=== PATIENT | female | born 1945 | race Caucasian/White ===

== ENCOUNTER → 2017-02-27 | Outpatient (CLI) | payer OTHER ==
[~2017-02-27] MED LIST: ADVIN50/60 INH; ALBU1.257 NEB; ASPI325T45 PO; ATOR-24 PO; B-COTAB18 PO; CARV3.122 PO; CHOL1000 PO; CITA20TA4 PO; FRS/40 PO; GABA-113 PO; MAGN500C PO; OYST500T47 PO; PANT40TA PO; SPRIN/30 INH; TRAZ50TA35 PO
[2017-02-27 12:10] LABS: BASO % 0.6 %; BASO ABS # 0.05 K/uL (0-0.2); COMPLETE YES; EOS % 2.7 %; HEMATOCRIT 41.2 % (37-47); IG% 0.1 %; LYMPH ABS # 2.37 K/uL (1.2-3.4); MEAN CELL VOLUME 83.9 fL (80-100); MEAN CORPUSCULAR HEMOGLOBIN 27.3 pg (25-34); MEAN CORPUSCULAR HGB CONC 32.5 g/dl (32-36); MEAN PLATELET VOLUME 11.5 fL (7.4-10.4); MONO % 7.1 %; NEUT % 59.5 %; PLATELET COUNT 294 K/uL (130-400); RED BLOOD COUNT 4.91 M/uL (4.2-5.4)
[2017-02-27 12:48] LABS: ALT/SGPT 32 U/L (12-78); AST/SGOT 18 U/L (15-37); BLOOD UREA NITROGEN 15 mg/dl (7-18); BUN/CREATININE RATIO 17.6 (10-20); CALCIUM 9.4 mg/dl (8.5-10.1); CARBON DIOXIDE 31 mmol/L (21-32); CHLORIDE 107 mmol/L (98-107); CREATININE 0.87 mg/dl (0.60-1.20); GLUCOSE 97 mg/dl (70-99); POTASSIUM 4.2 mmol/L (3.5-5.1); SODIUM 145 mmol/L (136-145)
[2017-02-27 12:59] LABS: ALB/GLOB RATIO 1.3 (0.9-2); ALKALINE PHOSPHATASE 81 U/L (45-117); CHOLESTEROL 155 mg/dl (0-200); CHOLESTEROL/HDL RATIO 2.9; HDL CHOLESTEROL 54 mg/dl; LDL CHOLESTEROL CALCULATED 82 mg/dl; TRIGLYCERIDES 95 mg/dl (0-150); VERY LOW DENSITY LIPOPROT CALC 19 mg/dl
== END | disposition home or self-care (01) ==
LOC: C.LABBFT 08:38
PROVIDERS: ATTEND Internal Medicine
DX: Z00.00 Encounter for general adult medical examination without abnormal findings (principal); J44.9 Chronic obstructive pulmonary disease, unspecified; E78.5 Hyperlipidemia, unspecified; M79.606 Pain in leg, unspecified; I25.10 Atherosclerotic heart disease of native coronary artery without angina pectoris; R20.9 Unspecified disturbances of skin sensation

== ENCOUNTER → 2017-04-26 | Outpatient (CLI) | payer OTHER ==
--- NOTE | 2017-04-26 12:56 | DIAGNOSTIC IMAGING REPORT ---
(CHEST) THORAX WITHOUT CLINICAL HISTORY: 72 years-old Female presenting with abnormal chest. TECHNIQUE: Multidetector CT angiography was performed without the use of intravenous contrast. IV contrast: None. COMPARISON: None. CT DOSE: The estimated cumulative dose is 361.24 mGycm. FINDINGS: Pediatric Hospitalist topogram: Unremarkable. On soft tissue windows, normal thyroid and thoracic inlet. No axillary or supraclavicular lymphadenopathy. Few calcified mediastinal and right hilar lymph nodes noted likely from prior granulomatous disease. Mild atherosclerosis of the aortic arch. Normal heart size. Coronary artery calcification. Coronary artery stent noted. No pericardial or pleural effusion. The upper abdomen demonstrates diffuse uptake foci of calcification in the liver and spleen also consistent with old granulomatous disease. On lung windows, apical predominant emphysema. A partially solid partially groundglass nodule noted within the posterior segment of the right upper lobe with minimal surrounding spiculation. This nodule measures 11 mm (series 2 image 29), and the solid component measures 5 mm. Multiple additional punctate nodules noted bilaterally measuring less than 4 mm. These are marked on images. Old calcified granuloma noted at the right apex. Small nodule along the right inferolateral aspect of the lower trachea (series 2 image 22). On bone windows, partial visualization of mandibular hardware. No destructive osseous lesion. IMPRESSION: 1. Partially solid nodule measuring 11 mm in the right upper lobe. Per Fleischner Society 2017 recommendations, 3-6 month follow-up CT recommended to confirm persistence. If unchanged and solid component remains less than 6 mm, annual CT should be performed for 5 years. 2. Evidence of old granulomatous disease. 3. Emphysema. 4. Small nodule along the right inferolateral aspect of the lower trachea. Attention on follow-up. Bronchoscopy could be considered as clinically warranted. Electronically signed by: Adolfo Hwang 04/26/2017 12:55 PM Dictated Date/Time: 04/26/2017 12:40 PM
== END | disposition home or self-care (01) ==
LOC: C.CTS 11:08
PROVIDERS: ATTEND Internal Medicine Pulmonary Disease
DX: R91.1 Solitary pulmonary nodule (principal); R92.8 Other abnormal and inconclusive findings on diagnostic imaging of breast; J43.9 Emphysema, unspecified

== ENCOUNTER → 2017-05-22 | Outpatient (CLI) | payer OTHER ==
[2017-05-22 16:15] LABS: BASO % 0.4 %; BASO ABS # 0.04 K/uL (0-0.2); COMPLETE YES; EOS % 2.1 %; HEMATOCRIT 41.7 % (37-47); IG% 0.1 %; LYMPH % 30.3 %; MEAN CELL VOLUME 83.4 fL (80-100); MEAN CORPUSCULAR HEMOGLOBIN 27.6 pg (25-34); MEAN CORPUSCULAR HGB CONC 33.1 g/dl (32-36); MEAN PLATELET VOLUME 11.3 fL (7.4-10.4); NEUT % 59.1 %; PLATELET COUNT 278 K/uL (130-400); WHITE BLOOD COUNT 9.57 K/uL (4.8-10.8)
[2017-05-22 16:26] LABS: BLOOD UREA NITROGEN 19 mg/dl (7-18); BUN/CREATININE RATIO 17.5 (10-20); CALCIUM 9.2 mg/dl (8.5-10.1); CARBON DIOXIDE 33 mmol/L (21-32); CHLORIDE 104 mmol/L (98-107); GLUCOSE 99 mg/dl (70-99); MAGNESIUM 2.3 mg/dl (1.8-2.4); POTASSIUM 3.5 mmol/L (3.5-5.1); SODIUM 141 mmol/L (136-145)
[2017-05-22 17:59] LABS: URINE APPEARANCE CLOUDY (CLEAR); URINE BILIRUBIN NEG (NEG); URINE COLOR DK YELLOW; URINE EPITHELIAL CELL AUTO >30 /lpf (0-5); URINE NITRITE NEG (NEG); URINE SPECIFIC GRAVITY 1.021 (1.000-1.030); UROBILINOGEN NEG (NEG)
[2017-05-22 18:09] LABS: MANUAL MICROSCOPIC REQUIRED? NO; REVIEW REQ? YES
== END | disposition home or self-care (01) ==
LOC: C.LAB1850 14:40
PROVIDERS: ATTEND Internal Medicine
DX: Z00.00 Encounter for general adult medical examination without abnormal findings (principal); E78.5 Hyperlipidemia, unspecified; R61 Generalized hyperhidrosis; R25.2 Cramp and spasm

== ENCOUNTER → 2017-07-30 | Day surgery (SDC) | payer OTHER ==
[2017-07-19 13:48] VITALS: Ht 167.6 cm; Wt 82.7 kg
[~2017-07-30] VITALS: Ht 167.6 cm; Wt 82.7 kg
[~2017-07-30] MED LIST changes: +500ML BSS 0.3ML EPI 1:1000PF IRRIG ONE; +ACETAMINOPHEN 325 MG TAB PO PRN; +AMVISC PLUS 0.8ML SYRINGE INT OCU ONE; +ATROPINE SULFATE 0.1 MG/ML 5ML SYR IV PRN; +BSS FLUSH ONE; +EpHEDrine SULFATE INJ 50 MG/ML AMP IV PRN; +EpINEphrine INJ 1MG/ML AMP 1 MG/ML AMP ONE; +FENTANYL CITRATE INJ 50 MCG/1 ML 2 ML VIAL IV PRN; +FENTANYL CITRATE INJ 50 MCG/1 ML 2 ML VIAL ONE; +LACTATED RINGER'S 1000ML 500 ML IV SCH; +LIDOCAINE 3.5% OPH GEL PER APPLICATION CHARGE ONE; +LIDOCAINE HCL 1% MPF 2 ML VIAL ONE; +MIDAZOLAM HCL 1 MG/ML 2ML VIAL ONE; +OCUCOAT 1 ML SOLN IO ONE; +ONDANSETRON INJ 2 MG/ML 2 ML VIAL IV PRN; +POVIDONE-IODINE OP SOLN 30 ML BTL ONE; +PROPARACAINE 0.5% OP SOLN PER DROP CHARGE OPL SCH; +TOBRAMYCIN/DEXAMETHASONE OPH OINT PER APPLN CHARGE ONE
[2017-07-30] MEDS: PHENYLEPHRINE HCL 2.5% OP SOLN PER DROP CHARGE OPL SCH ×2 (07:35→07:40)
[2017-07-30] MEDS: TROPICAMIDE 1% OP SOLN PER DROP CHARGE OPL SCH ×2 (07:35→07:41)
[2017-07-30] MEDS: CYCLOPENTOLATE HCL 1% OP SOLN PER DROP CHARGE OPL SCH ×2 (07:36→07:42)
[2017-07-30] MEDS: KETOROLAC 0.5% OP SOLN PER DROP CHARGE OPL SCH ×2 (07:37→07:43)
[2017-07-30] MEDS: GATIFLOXACIN OP SOLN PER DROP CHARGE OPL SCH ×2 (07:38→07:46)
--- NOTE | 2017-07-30 07:52 | History & Physical Bridge - SC ---
H&P Re-Evaluation Bridge Note: I have examined the patient, reviewed the History & Physical and in the interval since the performance of the History & Physical I have noted the following changes of clinical significance: Diagnosis: Left Cataract Procedure: Left Cataract Removal with Lens Implant No changes noted
--- NOTE | 2017-07-30 08:38 | [facility] Operative Report ---
Operative Report Date of Service Jul 30, 2017. Operative Report 1. PREOPERATIVE DIAGNOSIS: Cataract of the left eye. 2. POSTOPERATIVE DIAGNOSIS: Same. 3. PROCEDURE: Phacoemulsification with intraocular lens implantation of the left eye. SURGEON: Dr. Fran Trevino. ANESTHESIA: Topical Lidocaine gel, 1% Non- Preserved intracameral Lidocaine, and monitored intravenous sedation. INDICATIONS FOR THE PROCEDURE: The patient is a 72 - year-old female with a history of cataract of the left eye causing significant visual impairment. The details of the proposed procedure were explained to the patient who asked appropriate questions and following discussion of all risks, benefits and alternatives agreed to have the procedure done. 4. OPERATION AND FINDINGS: DESCRIPTION OF PROCEDURE: After informed consent was obtained, the patient was brought to the Operating Room at the [facility]. The patient was placed in a supine position and then the left eye was prepped and draped in the usual sterile fashion for intraocular surgery. A drop of topical Lidocaine gel was placed in the operative eye. A wire lid speculum was then placed in the fornices. A corneal paracentesis was then created temporally. The Non-Preserved Lidocaine was then instilled into the anterior chamber. The anterior chamber was then pressurized with viscoelastic. A 2.0 mm clear corneal incision was then created temporally. A cystotome was inserted into the anterior chamber and used to create a tear in the anterior lens capsule. This capsular tear was then used to create a small flap and the flap was dragged in a counterclockwise direction in order to create a continuous curvilinear capsulorrhexis. Hydrodissection was accomplished with balanced salt solution. Phacoemulsification of the lens nucleus was then performed in a standard [id number] technique. The phaco time was 24 seconds with an average power of 12 %. The remaining cortical material was removed using irrigation aspiration. The capsular bag was then filled with viscoelastic. A [employer] MX60 +20.0 diopters lens was then loaded into the injector and injected into the capsular bag. The remaining viscoelastic was removed with the irrigation aspiration handpiece. The wound was hydrated and then checked and found to be watertight. The intraocular pressure was checked and found to be adequate. The wire lid speculum was removed and the patient's face was cleaned and dried. TobraDex ointment was placed in the inferior fornix. The patient was discharged to the Recovery Room having tolerated the procedure well. There were no complications. The patient will be seen tomorrow in the office for follow-up. I attest to the content of the Intraoperative Record and any orders documented therein. Any exceptions are noted below.
--- NOTE | 2017-07-30 08:38 | Discharge Instructions-SurgCtr ---
Discharge Instructions Date of Service Jul 30, 2017. Visit Reason for Visit: Cataract Left Eye Discharge Discharge Diagnosis / Problem: cataract Discharge Goals Goal(s): Improve function Activity Recommendations Activity Limitations: per Instructions/Follow-up section Anesthesia . Post Anesthesia Instructions: If you have had General Anesthesia or IV Sedation: * Do not drive today. * Resume driving when surgeon permits. * Do not make important decisions or sign legal documents today. * Call surgeon for: 1. Temperature elevations greater than 101 degrees F. 2. Uncontrollable pain. 3. Excessive bleeding. 4. Persistent nausea and vomiting. 5. Medication intolerance (nausea, vomiting or rash). * For nausea and vomiting use only clear liquids such as: tea, soda, bouillon until nausea subsides, then gradually increase diet as tolerated. * If you have any concerns or questions, call your surgeon's office. If physician is unavailable and it is an emergency, call 911 or go to the nearest emergency room. . Diet Recommendations Home Diet: resume previous diet Procedures Procedures Performed: Left Cataract Phacoemulsification With Intraocular Lens Implant Pending Studies Studies pending at discharge: no Medical Emergencies . Who to Call and When: Medical Emergencies: If at any time you feel your situation is an emergency, please call 911 immediately. . Non-Emergent Contact Non-Emergency issues call your: [employer] . . "Provider Documentation" section prepared by Fran Trevino. .
[2017-07-30 08:59] VITALS: BP 118/68; PULSE 58; O2SAT 96
--- NOTE | 2017-07-30 09:07 | Anesthesia Progress Nt - [facility] ---
Anesthesia Post Op Note Date & Time Jul 30, 2017 at 09:07 Vital Signs Pain Intensity: 0 Vital Signs Past 12 Hours Date Time Temp Pulse Resp B/P (MAP) Pulse Ox O2 Delivery O2 Flow Rate FiO2 07/30/17 08:59 58 16 118/68 (85) 96 Room Air 07/30/17 08:38 36.3 63 16 114/61 (78) 94 Room Air 07/30/17 07:22 36.5 66 18 120/86 (97) 96 Room Air Notes Mental Status: alert / awake / arousable, participated in evaluation Pt Amnestic to Procedure: Yes Nausea / Vomiting: adequately controlled Pain: adequately controlled Airway Patency, RR, SpO2: stable & adequate BP & HR: stable & adequate Hydration State: stable & adequate Anesthetic Complications: no major complications apparent
== END | disposition home or self-care (01) ==
LOC: X.SURG 07:10
PROVIDERS: ATTEND Ophthalmology
DX: H26.9 Unspecified cataract (principal); J44.9 Chronic obstructive pulmonary disease, unspecified; Z99.81 Dependence on supplemental oxygen; K21.9 Gastro-esophageal reflux disease without esophagitis; I25.10 Atherosclerotic heart disease of native coronary artery without angina pectoris; I25.2 Old myocardial infarction; Z87.891 Personal history of nicotine dependence; Z90.710 Acquired absence of both cervix and uterus; Z90.49 Acquired absence of other specified parts of digestive tract

== ENCOUNTER → 2017-09-24 | Outpatient (CLI) | payer OTHER ==
[~2017-09-24] MED LIST changes: -500ML BSS 0.3ML EPI 1:1000PF IRRIG ONE; -ACETAMINOPHEN 325 MG TAB PO PRN; -AMVISC PLUS 0.8ML SYRINGE INT OCU ONE; -ATROPINE SULFATE 0.1 MG/ML 5ML SYR IV PRN; -BSS FLUSH ONE; -EpHEDrine SULFATE INJ 50 MG/ML AMP IV PRN; -EpINEphrine INJ 1MG/ML AMP 1 MG/ML AMP ONE; -FENTANYL CITRATE INJ 50 MCG/1 ML 2 ML VIAL IV PRN; -FENTANYL CITRATE INJ 50 MCG/1 ML 2 ML VIAL ONE; -LACTATED RINGER'S 1000ML 500 ML IV SCH; -LIDOCAINE 3.5% OPH GEL PER APPLICATION CHARGE ONE; -LIDOCAINE HCL 1% MPF 2 ML VIAL ONE; -MIDAZOLAM HCL 1 MG/ML 2ML VIAL ONE; -OCUCOAT 1 ML SOLN IO ONE; -ONDANSETRON INJ 2 MG/ML 2 ML VIAL IV PRN; -POVIDONE-IODINE OP SOLN 30 ML BTL ONE; -PROPARACAINE 0.5% OP SOLN PER DROP CHARGE OPL SCH; -TOBRAMYCIN/DEXAMETHASONE OPH OINT PER APPLN CHARGE ONE
--- NOTE | 2017-09-24 13:05 | DIAGNOSTIC IMAGING REPORT ---
(CHEST) THORAX WITHOUT CT DOSE: 340.47 mGycm CLINICAL HISTORY: 72 years-old Female with R91.1 Lung [id number] Tracheal noduleappt sched 09-24-17 @ 11:4. Follow-up study in a patient with lung and tracheal nodules TECHNIQUE: Multiaxial CT images of the chest were performed without contrast. A dose lowering technique was utilized adhering to the principles of ALARA. COMPARISON: CT chest 04/26/2017. FINDINGS: No dominant thyroid nodule identified. Calcified mediastinal and hilar lymph nodes compatible with prior granulomatous disease. Mural fibrofatty changes of septal the septal and apical left ventricular thapa are noted compatible with prior myocardial infarction. Coronary arterial calcifications are noted. There is a stent of the left anterior descending artery. There is no pneumothorax or pleural effusion. Moderate paraseptal and centrilobular emphysematous changes are again seen within the upper lung zone predominant distribution. Mild biapical pleural-parenchymal scarring. Calcified granuloma the right upper lobe. Linear subsegmental opacities of the right middle lobe suggest areas of atelectasis and/or scarring. There are multiple solid noncalcified nodules of the bilateral lungs, which measure in the 2 to 3 mm range (please see bookmarks). These appear unchanged from comparison. 10 x 8 mm pulmonary nodule of the right upper lobe abutting the major fissure is again seen which again demonstrates mild surrounding spiculation and groundglass opacity and appears somewhat linear in morphology on the coronal reformatted images nicely seen on image 142 series 4. This appears unchanged from comparison study 04/26/2017. No new suspicious pulmonary nodules identified. The previously questioned tracheal lesion is not definitively seen. Minimal layering secretions are seen within the tracheobronchial tree with some mucous plugging noted on image 199 series 4 is in the right lower lobe. Calcifications of the hepatic and splenic parenchyma compatible with prior granulomatous disease. Soft tissues are unremarkable. The bones appear intact. IMPRESSION: 1. 10 x 8 mm pulmonary nodule of the posterior segment right upper lobe appears stable in size and morphology from comparison study 04/26/2017 and again demonstrates mild marginal spiculation with surrounding groundglass density. This appears somewhat linear on the coronal images suspicious for possible scarring, however bronchogenic neoplasm could have a similar appearance. Follow-up CT in 3-6 months recommended to further evaluate. 2. Prior granulomatous disease. Multiple solid noncalcified nodules of the bilateral lungs are again seen measuring up to 4 mm which appear unchanged from comparison and are likely benign. Follow-up guidelines provided below. 3. Coronary arterial disease and prior coronary arterial stenting with remote septal and apical left ventricular infarction. Please refer to below summary of Fleischner criteria recommendations for follow-up of incidental CT nodules (Kaila Stewart, Guidelines for management of small pulmonary nodules detected on CT scans: A statement from the Fleischner Society, Radiology 237: [phone].) SOLID NODULES Solitary nodule size: <6 mm * Low risk patients: no follow-up needed * high risk patients: optional CT at 12 months Solitary nodule size: 6-8 mm * Low risk patients: follow-up at 6-12 months, then consider further follow-up at 18-24 months * high risk patients: initial follow-up CT at 6-12 months and then at 18-24 months if no change Solitary nodule size: >8 mm * either low or high risk patients - consider follow-up CT at 3 months, and/or CT-PET, and/or biopsy Multiple nodules size: <6 mm * Low risk patients: no routine follow-up * high risk patients: optional CT at 12 months Multiple nodules size: 6-8 mm * Low risk patients: follow-up at 3-6 months, then consider further follow-up at 18-24 months * high risk patients: follow-up at 3-6 months, then at 18-24 months if no change Multiple nodules size: >8 mm * Low risk patients: follow-up at 3-6 months, then consider further follow-up at 18-24 months * high risk patients: follow-up at 3-6 months, then at 18-24 months if no change Note: newly detected indeterminate nodule in persons 35 years of age or older. * Low risk patients: minimal or absent history of smoking and/or other known risk factors * high risk patients: history of smoking or of other known risk factors (e.g. first degree relative with lung cancer, or exposure to asbestos, radon, uranium) * if a nodule up to 8 mm is partly solid or is ground glass further follow-up is required after 24 months to exclude possible slow growing adenocarcinoma (MADHAVI) SUBSOLID NODULES Solitary pure ground-glass nodule * nodule size <6 mm - no CT follow-up required * nodule size >=6 mm - follow-up CT at 6-12 months, then every 2 years until 5 years Solitary part-solid nodule * nodule size <6 mm - no CT follow-up required * nodule size >=6 mm - follow-up CT at 3-6 months. If unchanged, and solid component remains <6 mm, then annual follow-up for 5 years Multiple subsolid nodules * nodule size <6 mm - follow-up CT at 3-6 months, consider further follow-up at 2 and 4 years if stable * nodule size >=6 mm - follow-up CT at 3-6 months, subsequent management based on the most suspicious nodule(s) The above report was generated using voice recognition software. It may contain grammatical, syntax or spelling errors. Electronically signed by: Zaid Craig M.D. 09/24/2017 1:04 PM Dictated Date/Time: 09/24/2017 12:53 PM
== END | disposition home or self-care (01) ==
LOC: C.CTS 11:55
PROVIDERS: ATTEND Internal Medicine Pulmonary Disease
DX: J98.8 Other specified respiratory disorders (principal); R91.1 Solitary pulmonary nodule

== ENCOUNTER 2017-10-15 11:02 | Inpatient (IN) | payer OTHER ==
[~2017-10-15] VITALS: Ht 167.6 cm; Wt 86.0 kg
[2017-10-15] VITALS (7 sets, daily range): BP systolic 100–101; BP diastolic 58–61; PULSE 64–77; TEMP 36.6–37.2; O2SAT 91–95; Ht 167.6 cm; Wt 86.0 kg
[~2017-10-15 11:02] MED LIST changes: +ASPECOTC PO; -ASPI325T45 PO
[2017-10-15] MEDS ORDERED: ALBUT/IPRATROP 3MG/0.5MG NEB 3 ML VIAL INH STA ×2 (11:15→12:17)
--- NOTE | 2017-10-15 11:36 | DIAGNOSTIC IMAGING REPORT ---
CHEST ONE VIEW PORTABLE CLINICAL HISTORY: sob dyspnea COMPARISON STUDY: No previous studies for comparison. FINDINGS: The bones soft tissues and hemidiaphragms are normal. The cardiomediastinal silhouette is normal. The lungs are clear. The pulmonary vasculature is normal. IMPRESSION: Negative chest. The right lung nodular process seen on CT is not well seen on this exam. The above report was generated using voice recognition software. It may contain grammatical, syntax or spelling errors. Electronically signed by: Johnny Barnes M.D. 10/15/2017 11:34 AM Dictated Date/Time: 10/15/2017 11:33 AM
[2017-10-15] MEDS ORDERED: PRED10TA PO (11:39)
[2017-10-15 12:13] LABS: BASO % 0.4 %; BASO ABS # 0.03 K/uL (0-0.2); EOS % 0.5 %; EOS ABS # 0.04 K/uL (0-0.5); HEMATOCRIT 40.6 % (37-47); HEMOGLOBIN 13.6 g/dL (12.0-16.0); IG# 0.03 K/uL (0.00-0.02); LYMPH % 10.2 %; LYMPH ABS # 0.78 K/uL (1.2-3.4); MEAN CELL VOLUME 82.9 fL (80-100); MEAN CORPUSCULAR HEMOGLOBIN 27.8 pg (25-34); MEAN CORPUSCULAR HGB CONC 33.5 g/dl (32-36); MEAN PLATELET VOLUME 10.8 fL (7.4-10.4); MONO % 14.2 %; MONO ABS # 1.08 K/uL (0.11-0.59); NEUT % 74.3 %; NEUT ABS # 5.67 K/uL (1.4-6.5); PLATELET COUNT 200 K/uL (130-400); RED CELL DISTRIBUTION WIDTH CV 14.5 % (11.5-14.5); RED CELL DISTRIBUTION WIDTH SD 43.3 fL (36.4-46.3); WHITE BLOOD COUNT 7.63 K/uL (4.8-10.8)
[2017-10-15] MEDS ORDERED: AZITHROMYCIN 250 MG TAB PO STA (12:13)
[2017-10-15] MEDS ORDERED: METHYLPREDNISOLONE 125 MG VIAL IV STA (12:13)
[2017-10-15] MEDS ORDERED: MAGNESIUM SULFATE 1GM / D5W 1 GM BAG IV STA (12:13)
[2017-10-15] MEDS ORDERED: MoRPHine SULFATE 4 MG/ML 1 ML CARP\\VIAL IV STA (12:13)
[2017-10-15] MEDS ORDERED: ALBUT/IPRATROP 3MG/0.5MG NEB 3 ML VIAL INH ONE (12:15)
--- NOTE | 2017-10-15 12:18 | EMERGENCY ROOM VISIT NOTE ---
History Report prepared by Mica: Clemente James Under the Supervision of: Dr. Pietro Sullivan M.D. First contact with patient: 12:02 Chief Complaint: REFERRED BY DOCTOR Stated Complaint: SOB;DOC SENT TO ER O2 LEVEL IS LOW History of Present Illness The patient is a 72 year old white female with a past medical history of a heart attack with stent placement, COPD, hypertension, and hyperlipidemia who presents to the ED with a cc of worsening shortness of breath beginning yesterday. Positive sweats, chest congestion. Negative chest pain, leg swelling. She states that her doctor sent her in for the shortness of breath, as it worsened around 3 hours ago. She says that her oxygen saturation was 86% at home. The patient says that she had difficulty breathing yesterday, and used her nebulizer, inhaler, and oxygen without much relief. She notes that she only wears oxygen (2.5 liters) at night. She adds that she normally can walk to the bathroom without difficulty, but she now has shortness of breath on exertion. She notes no history of blood clots in the legs or lungs. The patient is not on a blood thinner. She did not get her flu shot yet. Source of History: patient, family Onset: Yesterday Position: other (global - shortness of breath) Quality: other (used nebulizer, inhaler, and oxygen without relief) Timing: worsening Modifying Factors (Worsening): exertion Associated Symptoms: + diaphoresis, No chest pain Note: Associated symptoms: Chest congestion. Negative leg swelling. Review of Systems See HPI for pertinent positives and negatives. A total of ten systems were reviewed and were otherwise negative. Past Medical & Surgical Medical Problems: (1) COPD (chronic obstructive pulmonary disease) (2) COPD exacerbation (3) Heart attack (4) HLD (hyperlipidemia) (5) HTN (hypertension) Family History Family history limited secondary to patient's advanced age. Social History Smoking Status: Unknown if Ever Smoked Marital Status: Occupation Status: retired Current/Historical Medications Scheduled Aspirin (Aspirin), 325 MG PO QAM Atorvastatin (Lipitor), 40 MG PO QPM B-Complex Vitamins (Vitamin B Complex), 1 TAB PO QAM Carvedilol (Coreg), 3.125 MG PO BID Cholecalciferol (Vitamin D3), 1,000 UNITS PO QAM Citalopram Hydrobromide (Citalopram Hydrobromide), 20 MG PO HS Fluticasone Prop/Salmeterol (Advair Diskus 500/50 60 Dose), 1 PUFF INH BID Furosemide (Lasix), 40 MG PO QAM Gabapentin (Neurontin), 300 MG PO HS Magnesium Oxide (Mg Supplement (Magnesium), 1 CAP PO QAM Oyster Shell (Calcium), 1 TAB PO QAM Pantoprazole (Protonix), 40 MG PO QAM Prednisone (Prednisone), 1 DOSE PO UD Tiotropium [place] (Spiriva Handihaler), 1 CAP INH HS Trazodone Hcl (Trazodone), 50 MG PO HS Scheduled PRN Albuterol Sulfate (Albuterol Sulfate), 1 VIAL NEB Q4 PRN for Shortness of Breath Allergies Coded Allergies: Diazepam (Verified Allergy, Unknown, WAS TOLD NEVER TO TAKE AGAIN FROM INSTRUCTIONAL SUPPORT SPECIALIST, 10/15/17) Physical Exam Vital Signs Date Time Temp Pulse Resp B/P (MAP) Pulse Ox O2 Delivery O2 Flow Rate FiO2 10/15/17 13:13 81 20 94/51 93 Nasal Cannula 2.0 10/15/17 12:09 81 10/15/17 11:38 Nasal Cannula 2.5 10/15/17 11:34 81 22 96 Nasal Cannula 2.5 10/15/17 11:34 95 Nebulizer 10/15/17 11:28 Nebulizer 10/15/17 11:04 37.1 86 24 145/101 92 Room Air Physical Exam GENERAL: Awake, alert, well-appearing, NAD, nasal cannula in place. HENT: Normocephalic, atraumatic. EYES: Normal conjunctiva. Sclera non-icteric. NECK: Supple. No nuchal rigidity. FROM. RESPIRATORY: Mildly labored. Diffuse expiratory wheezing, prolonged expiratory phase. CARDIAC: RRR, no MRG ABDOMEN: Soft, NTND, BS+ MSK: No chest wall TTP, 1+ pretibial edema. NEURO: GCS 15, CN 2-12 intact, moves all 4s on command SKIN: No rash or jaundice noted. Medical Decision & Procedures ER Provider Diagnostic Interpretation: X-ray: Per my interpretation, radiologist review. CHEST ONE VIEW PORTABLE CLINICAL HISTORY: sob dyspnea COMPARISON STUDY: No previous studies for comparison. FINDINGS: The bones soft tissues and hemidiaphragms are normal. The cardiomediastinal silhouette is normal. The lungs are clear. The pulmonary vasculature is normal. IMPRESSION: Negative chest. The right lung nodular process seen on CT is not well seen on this exam. The above report was generated using voice recognition software. It may contain grammatical, syntax or spelling errors. Electronically signed by: Johnny Barnes M.D. 10/15/2017 11:34 AM Dictated Date/Time: 10/15/2017 11:33 AM Laboratory Results 10/15/17 11:30 Red Blood Count 4.90, Mean Corpuscular Volume 82.9, Mean Corpuscular Hemoglobin 27.8, Mean Corpuscular Hemoglobin Concent 33.5, Mean Platelet Volume 10.8, Neutrophils (%) (Auto) 74.3, Lymphocytes (%) (Auto) 10.2, Monocytes (%) (Auto) 14.2, Eosinophils (%) (Auto) 0.5, Basophils (%) (Auto) 0.4, Neutrophils # (Auto ) 5.67, Lymphocytes # (Auto) 0.78, Monocytes # (Auto) 1.08, Eosinophils # (Auto ) 0.04, Basophils # (Auto) 0.03 10/15/17 11:30 Test 10/15/17 11:30 10/15/17 11:35 10/15/17 13:35 White Blood Count 7.63 K/uL (4.8-10.8) Red Blood Count 4.90 M/uL (4.2-5.4) Hemoglobin 13.6 g/dL (12.0-16.0) Hematocrit 40.6 % (37-47) Mean Corpuscular Volume 82.9 fL (80-100) Mean Corpuscular Hemoglobin 27.8 pg (25-34) Mean Corpuscular Hemoglobin Concent 33.5 g/dl (32-36) Platelet Count 200 K/uL (130-400) Mean Platelet Volume 10.8 fL (7.4-10.4) Neutrophils (%) (Auto) 74.3 % Lymphocytes (%) (Auto) 10.2 % Monocytes (%) (Auto) 14.2 % Eosinophils (%) (Auto) 0.5 % Basophils (%) (Auto) 0.4 % Neutrophils # (Auto) 5.67 K/uL (1.4-6.5) Lymphocytes # (Auto) 0.78 K/uL (1.2-3.4) Monocytes # (Auto) 1.08 K/uL (0.11-0.59) Eosinophils # (Auto) 0.04 K/uL (0-0.5) Basophils # (Auto) 0.03 K/uL (0-0.2) RDW Standard Deviation 43.3 fL (36.4-46.3) RDW Coefficient of Variation 14.5 % (11.5-14.5) Immature Granulocyte % (Auto) 0.4 % Immature Granulocyte # (Auto) 0.03 K/uL (0.00-0.02) Prothrombin Time 10.0 SECONDS (9.0-12.0) Prothromb Time International Ratio 1.0 (0.9-1.1) Activated Partial Thromboplast Time 25.7 SECONDS (21.0-31.0) Partial Thromboplastin Ratio 1.0 Anion Gap 5.0 mmol/L (3-11) Estimated GFR () 90.8 Estimated GFR (Non- 78.4 BUN/Creatinine Ratio 23.1 (10-20) Calcium Level 8.9 mg/dl (8.5-10.1) Total Bilirubin 0.5 mg/dl (0.2-1) Aspartate Amino Transf (AST/SGOT) 20 U/L (15-37) Alanine Aminotransferase (ALT/SGPT) 34 U/L (12-78) Alkaline Phosphatase 73 U/L (45-117) Total Protein 6.9 gm/dl (6.4-8.2) Albumin 3.8 gm/dl (3.4-5.0) Globulin 3.1 gm/dl (2.5-4.0) Albumin/Globulin Ratio 1.2 (0.9-2) Bedside Troponin I < 0.030 ng/ml (0-0.045) Influenza Type A Antigen POS for Influ A (NEG) Influenza Type B Antigen Neg for Influ B (NEG) Laboratory results reviewed by me Medications Administered Medications (Trade) Dose Ordered Sig/Juarez Route Start Time Stop Time Status Last Admin Dose Admin Albuterol/ Ipratropium (Duoneb) 3 ml NOW STAT INH 10/15/17 11:15 10/15/17 11:17 DC 12/26/17 11:38 3 ML Azithromycin (Zithromax Tab) 500 mg NOW STAT PO 10/15/17 12:13 10/15/17 12:16 DC 10/15/17 12:26 500 MG Methylprednisolone Sodium Succinate (Solu-Medrol IV) 125 mg NOW STAT IV 10/15/17 12:13 10/15/17 12:16 DC 10/15/17 12:30 125 MG Magnesium Sulfate (Magnesium Sulfate) 1 gm NOW STAT IV 10/15/17 12:13 10/15/17 12:16 DC 10/15/17 12:28 1 GM Albuterol/ Ipratropium (Duoneb) 9 ml ONE STAT INH 10/15/17 12:17 10/15/17 12:19 DC 10/15/17 12:31 9 ML Morphine Sulfate (MoRPHine SULFATE INJ) 2 mg STK-MED ONCE .ROUTE 10/15/17 12:19 10/15/17 12:20 DC 10/15/17 12:27 2 MG ECG Indication: SOB/dyspnea Rate (beats per minute): 77 Rhythm: normal sinus Findings: Q waves (Inferior), left axis deviation, other (normal intervals) ED Course 1207: The patient was evaluated in room B12B. A complete history and physical exam was performed. 1305: Upon reexamination, the patient was resting. I discussed the test results and treatment plan with her. She expressed understanding and agreement. The patient will be evaluated for further management. 1310: Discussed the patient's case with Dr. Catherine Tilley - [facility] carbonation equipment tender. The patient will be evaluated for further treatment and disposition. Medical Decision The patient is a 72 year old white female with a past medical history of a heart attack with stent placement, COPD, hypertension, and hyperlipidemia who presents to the ED with a cc of worsening shortness of breath beginning yesterday. Positive sweats, chest congestion. Negative chest pain, leg swelling. Differential diagnosis: Etiologies such as infections, reactive airway disease, pneumonia, pneumothorax , COPD, CHF, cardiac ischemia, pulmonary embolism, musculoskeletal, gastrointestinal, as well as others were entertained. Patient was seen and evaluated the bedside. Patient is at worsening shortness of breath ongoing since yesterday. Patient does typically used to have liters of O2 at nighttime. Patient states that she's had use it throughout the day. Patient did chest her pulse ox at home and it was 86%. Patient has complained of a dry cough. Patient denies any chest pain. Patient is a prior history of CAD status post stent placement. Patient was given DuoNeb's, steroids, Zithromax and did have blood work completed along with a troponin chest x-ray and EKG. Patient's EKG did show left axis deviation with inferior Q waves. Patient had negative troponin. Patient's white count was not significantly elevated. Patient history exam is most consistent with COPD exacerbation. Given her increased oxygen requirement I did speak with the hospitalist who agreed to further evaluate and treat the patient. She was admitted to medicine service. Medication Reconcilliation Current Medication List: was personally reviewed by me Blood Pressure Screening Patient's blood pressure: Elevated blood pressure Referred to carbonation equipment tender. Consults Time Called: 1305 Consulting Physician: Dr. Catherine Chavez carbonation equipment tender Returned Call: 1310 Discussed the patient's case with Dr. Catherine Chavez carbonation equipment tender. The patient will be evaluated for further treatment and disposition. Impression Primary Impression: COPD (chronic obstructive pulmonary disease) Additional Impressions: Influenza A Acute respiratory failure with hypoxia Scribe Attestation The scribe's documentation has been prepared under my direction and personally reviewed by me in its entirety. I confirm that the note above accurately reflects all work, treatment, procedures, and medical decision making performed by me. Departure Information Dispostion Being Evaluated By Hospitalist Referrals Danna Winston M.D. (PCP) Patient Instructions My [facility] Problem Qualifiers Primary Impression: COPD (chronic obstructive pulmonary disease) COPD type: unspecified COPD Qualified Codes: J44.9 - Chronic obstructive pulmonary disease, unspecified
[2017-10-15] MEDS ORDERED: MoRPHine SULFATE 2 MG/ML CARP ONE (12:19)
[2017-10-15 12:23] LABS: PTT PATIENT 25.7 SECONDS (21.0-31.0)
[2017-10-15 12:34] LABS: ALBUMIN 3.8 gm/dl (3.4-5.0); ALT/SGPT 34 U/L (12-78); AST/SGOT 20 U/L (15-37); BLOOD UREA NITROGEN 18 mg/dl (7-18); CALCIUM 8.9 mg/dl (8.5-10.1); CARBON DIOXIDE 28 mmol/L (21-32); CREATININE 0.76 mg/dl (0.60-1.20); GLUCOSE 97 mg/dl (70-99); POTASSIUM 3.5 mmol/L (3.5-5.1); SODIUM 134 mmol/L (136-145)
[2017-10-15 12:36] LABS: ALKALINE PHOSPHATASE 73 U/L (45-117); TOTAL PROTEIN 6.9 gm/dl (6.4-8.2)
[2017-10-15] MEDS ORDERED: POLYETHYLENE (MIRALAX) 17 GM PACK PO PRN (13:45)
[2017-10-15] MEDS ORDERED: IV FLUIDS COMPLETED PRN (13:45)
[2017-10-15] MEDS ORDERED: MAGNESIUM HYDROXIDE SUSP 30 ML UDC PO PRN (13:45)
[2017-10-15] MEDS ORDERED: ONDANSETRON INJ 2 MG/ML 2 ML VIAL IV PRN (13:45)
[2017-10-15] MEDS ORDERED: ALUMINUM/MAGNESIUM/SIMETH (MAALOX MAX) 30 ML UDC PO PRN (13:45)
--- NOTE | 2017-10-15 13:57 | History and Physical ---
History & Physical Date & Time of Service: Oct 15, 2017 at 13:41 Chief Complaint: Sob;Doc Sent To Er O2 Level Is Low Primary Care Physician: Danna Winston M.D. History of Present Illness Source: patient, family, clinic records, hospital records Patient is a pleasant 72 y/o female, with PMHx of CAD s/p [place] w/ 2 stents, diastolic CHF, HTN, HLD, COPD, tobacco abuse, RUL nodule, neuropathy, anxiety, and GERD, who presented to the ED because of progressive SOB x1 day. Patient follows w/ Dr. Wilkerson. She normally wears 2.5L O2 HS; as of yesterday afternoon, she required 2L O2 during the day due to SOB and pulse ox of 86%. She notes non- productive cough. She most recently saw Dr. Wilkerson on 10/09 and was placed on a 12 day Prednisone taper- today is day #7 at 20 mg. She has a RUL nodule, which is being followed by Dr. Wilkerson. She smokes 3 cigs per day- notes her and Dr. Wilkerson have discussed smoking cessation and plans to discontinue cigs on October 21. Dr. Wilkerson is also planning for pulmonary rehab 3 times per week. She denies any other complaints. Denies h/o DVT/PE. + wheezing. +fatigue. Patient denies any fever, chills, sweats, lightheadedness, dizziness, vision changes, CP , palpitations, edema, abdominal pain, nausea, vomiting, diarrhea, urinary symptoms, melena, numbness/tingling, weakness, muscle/joint pain, anxiety/ depression, active bleeding, or new skin discoloration/changes. Past Medical/Surgical History Medical/Surgical History: CAD s/p TN w/ 2 stents- in 2001 diastolic CHF HTN HLD COPD tobacco abuse RUL nodule- found April 2017 neuropathy anxiety GERD tonsillectomy appendectomy hysterectomy Family History TN, colon cancer, ovarian cancer Social History Smoking Status: Current Every Day Smoker Smokeless Tobacco Use: No Alcohol Use: none Marital Status: Housing status: lives alone Occupational Status: retired Allergies Coded Allergies: Diazepam (Verified Allergy, Unknown, WAS TOLD NEVER TO TAKE AGAIN FROM PREFORMING MACHINE OPERATOR, 10/15/17) Home Medications Scheduled Aspirin (Aspirin), 325 MG PO QAM Atorvastatin (Lipitor), 40 MG PO QPM B-Complex Vitamins (Vitamin B Complex), 1 TAB PO QAM Carvedilol (Coreg), 3.125 MG PO BID Cholecalciferol (Vitamin D3), 1,000 UNITS PO QAM Citalopram Hydrobromide (Citalopram Hydrobromide), 20 MG PO HS Fluticasone Prop/Salmeterol (Advair Diskus 500/50 60 Dose), 1 PUFF INH BID Furosemide (Lasix), 40 MG PO QAM Gabapentin (Neurontin), 300 MG PO HS Magnesium Oxide (Mg Supplement (Magnesium), 1 CAP PO QAM Oyster Shell (Calcium), 1 TAB PO QAM Pantoprazole (Protonix), 40 MG PO QAM Prednisone (Prednisone), 1 DOSE PO UD Tiotropium [place] (Spiriva Handihaler), 1 CAP INH HS Trazodone Hcl (Trazodone), 50 MG PO HS Scheduled PRN Albuterol Sulfate (Albuterol Sulfate), 1 VIAL NEB Q4 PRN for Shortness of Breath Physical Exam Vital Signs Date Time Temp Pulse Resp B/P (MAP) Pulse Ox O2 Delivery O2 Flow Rate FiO2 10/15/17 13:13 81 20 94/51 93 Nasal Cannula 2.0 10/15/17 12:09 81 10/15/17 11:38 Nasal Cannula 2.5 10/15/17 11:34 81 22 96 Nasal Cannula 2.5 10/15/17 11:34 95 Nebulizer 10/15/17 11:28 Nebulizer 10/15/17 11:04 37.1 86 24 145/101 92 Room Air General Appearance: no apparent distress, + pertinent finding (O2 NC ) Head: normocephalic, atraumatic Eyes: normal inspection, PERRL ENT: hearing grossly normal Neck: supple Respiratory/Chest: no respiratory distress, no accessory muscle use, + decreased breath sounds (throughout ), + wheezing (expiratory wheeze throughout all lung spicer ) Cardiovascular: regular rate, rhythm Abdomen/GI: normal bowel sounds, non tender, soft Back: normal inspection Extremities/Musculoskelatal: no calf tenderness, no pedal edema Neurologic/Psych: alert, normal mood/affect, oriented x 3 Skin: normal color, warm/dry, no rash Diagnostics Laboratory Results Results Past 24 Hours Test 10/15/17 11:30 10/15/17 11:35 10/15/17 13:16 Range/Units White Blood Count 7.63 4.8-10.8 K/uL Red Blood Count 4.90 4.2-5.4 M/uL Hemoglobin 13.6 12.0-16.0 g/dL Hematocrit 40.6 37-47 % Mean Corpuscular Volume 82.9 80-100 fL Mean Corpuscular Hemoglobin 27.8 25-34 pg Mean Corpuscular Hemoglobin Concent 33.5 32-36 g/dl Platelet Count 200 130-400 K/uL Mean Platelet Volume 10.8 7.4-10.4 fL Neutrophils (%) (Auto) 74.3 % Lymphocytes (%) (Auto) 10.2 % Monocytes (%) (Auto) 14.2 % Eosinophils (%) (Auto) 0.5 % Basophils (%) (Auto) 0.4 % Neutrophils # (Auto) 5.67 1.4-6.5 K/uL Lymphocytes # (Auto) 0.78 1.2-3.4 K/uL Monocytes # (Auto) 1.08 0.11-0.59 K/uL Eosinophils # (Auto) 0.04 0-0.5 K/uL Basophils # (Auto) 0.03 0-0.2 K/uL RDW Standard Deviation 43.3 36.4-46.3 fL RDW Coefficient of Variation 14.5 11.5-14.5 % Immature Granulocyte % (Auto) 0.4 % Immature Granulocyte # (Auto) 0.03 0.00-0.02 K/uL Prothrombin Time 10.0 9.0-12.0 SECONDS Prothromb Time International Ratio 1.0 0.9-1.1 Activated Partial Thromboplast Time 25.7 21.0-31.0 SECONDS Partial Thromboplastin Ratio 1.0 Sodium Level 134 136-145 mmol/L Potassium Level 3.5 3.5-5.1 mmol/L Chloride Level 101 98-107 mmol/L Carbon Dioxide Level 28 21-32 mmol/L Anion Gap 5.0 3-11 mmol/L Blood Urea Nitrogen 18 7-18 mg/dl Creatinine 0.76 0.60-1.20 mg/dl Estimated GFR () 90.8 Estimated GFR (Non- 78.4 BUN/Creatinine Ratio 23.1 10-20 Random Glucose 97 70-99 mg/dl Calcium Level 8.9 8.5-10.1 mg/dl Total Bilirubin 0.5 0.2-1 mg/dl Aspartate Amino Transf (AST/SGOT) 20 15-37 U/L Alanine Aminotransferase (ALT/SGPT) 34 12-78 U/L Alkaline Phosphatase 73 45-117 U/L Total Protein 6.9 6.4-8.2 gm/dl Albumin 3.8 3.4-5.0 gm/dl Globulin 3.1 2.5-4.0 gm/dl Albumin/Globulin Ratio 1.2 0.9-2 Bedside Troponin I < 0.030 0-0.045 ng/ml Diagnostic Radiology CHEST ONE VIEW PORTABLE CLINICAL HISTORY: sob dyspnea COMPARISON STUDY: No previous studies for comparison. FINDINGS: The bones soft tissues and hemidiaphragms are normal. The cardiomediastinal silhouette is normal. The lungs are clear. The pulmonary vasculature is normal. IMPRESSION: Negative chest. The right lung nodular process seen on CT is not well seen on this exam. The above report was generated using voice recognition software. It may contain grammatical, syntax or spelling errors. Electronically signed by: Johnny Barnes M.D. 10/15/2017 11:34 AM Dictated Date/Time: 10/15/2017 11:33 AM The status of this report is Signed. Draft = Not yet reviewed or approved by Radiologist. Signed = Reviewed and approved by Radiologist. EKG FELI BRE ID:[id number] 15-OCT-2017 11:38:12 [facility] Poor data quality, interpretation may be adversely affected Normal sinus rhythm Minimal voltage criteria for LVH, may be normal variant Inferior infarct , age undetermined Abnormal ECG No previous ECGs available 25mm/s 10mm/mV 150Hz 8.0 SP2 12SL 241 HD HELEN: 12 Referred by: Unconfirmed Vent. rate 77 BPM TX interval 140 ms QRS duration 86 ms QT/QTc 410/463 ms P-R-T axes 67 -22 54 1945 (72 yr) Female Room: Loc:15 [employer] Offbearer:JONATHAN [place] ind: Impression Assessment and Plan Patient is a pleasant 72 y/o female, with PMHx of CAD s/p [place] w/ 2 stents, diastolic CHF, HTN, HLD, COPD, tobacco abuse, RUL nodule, neuropathy, anxiety, and GERD, who presented to the ED because of progressive SOB x1 day. Acute on chronic COPD exacerbation- follows w/ Dr. Wilkerson, influenza A positive: - Admit to med/surg - O2 protocol, wean as tolerated- currently wears 2.5L O2 HS at home - Azithromycin 500 mg x1; then 250 mg x4 days - DuoNebs SUZI and PRN - Continue home inhalers- Spiriva, Combivent, Advair - IV SoluMedrol 120 mg in ED; will continue IV 60 mg BID and taper - IV Mag x1 gm in ED - CXR w/out acute infectious process - Influenza A positive- Tamiflu 75 mg BID x5 days and droplet precautions CAD s/p [place] w/ 2 stents, diastolic CHF, HTN, HLD- STABLE: Continue ASA 325 mg daily, Lipitor 40 mg HS, Coreg 3.125 mg BID, Lasix 40 mg daily Tobacco abuse: Smoking cessation counselling RUL nodule: Following w/ Dr. Wilkerson Anxiety: Continue Citalopram 20 mg HS Neuropathy: Continue Gabapentin 300 mg HS Insomnia: Continue Trazodone 50 mg HS GERD: Continue Protonix 40 mg daily DVT prophylaxis: Heparin SQ BID Code Status: FULL, NO CARDIOVERSION Dispo: From home, lives alone- PT/OT and CM consulted I personally interviewed and examined the patient. I agree with history of present illness and physical exam mentioned above, I also performed my own history taking and examination. Past medical history and review of system has been obtained by myself I reviewed all pertinent labs and studies Reviewed current medications I discussed and formulated of the assessment and plan mentioned above. Please refer to the Summary mentioned below. Agree With Miss. Pandya's plan 72-year-old female with past medical history of diastolic congestive heart failure, hypertension, dyslipidemia, COPD, CAD status post stent presented D the ED with shortness of breath General Appearance: not in acute distress Eyes: normal Sclerae, extraocular muscle intact ENT: hearing grossly normal Neck: supple Respiratory/Chest: decreased air entry bilateral ,no severe respiratory distress, no accessory muscle use but on arrival she might have have it, currently she is comfortable on O2 Cardiovascular: regular rate, rhythm, no murmur Abdomen: non tender, soft, no masses Extremities: no edema Neurologic/Psychiatric: Awake alert oriented times place and person moves all extremities sensation intact cranial nerves II-12 appear to be intact Skin: normal color, warm/dry, no rash 85 years old female presented to the ED with shortness of breath chest x-ray revealed bilateral multifocal pneumonia Assessment Acute COPD CAD Plan steroids IV Azithro Bronchodilators O2 supplement as needed DVT prophylaxis Wang Tilley MD, [facility] Hospitalist group Level of Care Med/Surg Resuscitation Status FULL NO CARDIOVERSION VTE Prophylaxis VTE Risk Assessment Done? Y/N: Yes Risk Level: Moderate Given or contraindicated: Unfractionated heparin SQ, T.E.D. Stockings, SCD's
--- NOTE | 2017-10-15 14:12 | NUR ---
A/ID: 72 year old female in ED. c/o worsened shortness of breath. On oxygen at night at home. History of COPD, nocturnal hypoxia. Possible admission/observation. Admission Assessment done. Code Word/Fall Agreement reviewed with patient and sister and completed. Continued care in ED by FLAVIO Turner.
[2017-10-15 14:29] LABS: INFLUENZA B ANTIGEN Neg for Influ B (NEG)
--- NOTE | 2017-10-15 14:40 | NUR ---
pt arrived o room 258, accompanied by family. Alert, oriented x4. able to make needs known. oriented pt to room, call cardenas usage, diet and safety. verbalized understanding. admission VS obtained. will report to next shift nurse. all needs met at this time Addendum: 10/15/17 at 1448 by Shelley Hussein RN received call from REFUELING RAMP ATTENDANT to notify patient flu swab is confirmed positive for influenza A. appropriate PPE set up, pt made aware, verbalized understanding
[2017-10-15] MEDS ORDERED: INFLUENZA ADMINISTRATION CHARGE ONE (14:45)
[2017-10-15] MEDS ORDERED: INFLUENZA VIRUS QUAD VACCINE 0.5 ML SYR IM. ONE (14:45)
--- NOTE | 2017-10-15 16:00 | NUR ---
OBS note: Pt is alert and oriented x4. VS are stable, pt wears 2.5L of oxygen via NC chronically.SOB with exertion. IV is saline locked. OOB with one assist. Tolerating AHA diet. Pt is on droplet precautions for influenza A. Pt is getting scheduled Duonebs. Discharge plans are uncertain at this time.
[2017-10-15] MEDS: ALBUT/IPRATROP 3MG/0.5MG NEB 3 ML VIAL INH SCH ×2 (16:37→19:42)
[2017-10-15] MEDS: IPRATROPIUM BROMIDE/ALBUTEROL respimat INH INH SCH ×2 (17:28→21:11)
[2017-10-15] MEDS: ACETAMINOPHEN 325 MG TAB PO PRN (17:31)
--- NOTE | 2017-10-15 19:02 | NUR ---
OBS: Pt is a 72 y/o female admitted with COPD exac. +Flu. Droplet precautions. Started on tamiflu today. A/O x4. Lungs are +Wheezing on 2.5L NC, wears 2.5L NC at baseline chronic. Nonproductive cough. MOYER. Tolerating AHA diet well. OOB x1 Assist. Abnormal toes - defect. R hand sL. Encouraged to ring for assist no discharge plans at this time.
[2017-10-15] MEDS: CARVEDILOL 3.125 MG TAB PO SCH ×2 (21:00→21:15)
[2017-10-15] MEDS: FLUTICASONE/SALMETEROL (ADVAIR) 500/50 INH 14 PUFF INH SCH (21:11)
[2017-10-15] MEDS: TIOTROPIUM BROMIDE 5 PUFF/90 MCG INH INH SCH (21:12)
[2017-10-15] MEDS: CITALOPRAM 20 MG TAB PO SCH (21:14)
[2017-10-15] MEDS: TRAZODONE HCL 50 MG TAB PO SCH (21:14)
[2017-10-15] MEDS: ATORVASTATIN 40 MG TAB PO SCH (21:15)
[2017-10-15] MEDS: GABAPENTIN 300 MG CAP PO SCH (21:15)
[2017-10-15] MEDS: HEPARIN SOD 5000 UNIT/0.5 ML CARP SQ SCH (21:18)
[2017-10-15] MEDS: OSELTAMIVIR PHOSPHATE 75 MG CAP PO SCH (21:43)
[2017-10-15] MEDS ORDERED: NURSING DECISION MEDICATION ORDER SCH (22:45)
[2017-10-15] MEDS ORDERED: COUGH DROP (SUGAR FREE) LOZ 24 LOZ/1 BOX PO PRN (23:00)
[2017-10-15] MEDS: METHYLPREDNISOLONE IV 60 MG in SYRINGE 0 ML IV SCH (23:24)
[2017-10-16] VITALS (9 sets, daily range): BP systolic 117–130; BP diastolic 63–77; PULSE 77–105; TEMP 36.7–37; O2SAT 90–94
--- NOTE | 2017-10-16 | NUR ---
OBS/ID: Pt AAO x 4, VSS on 2.5L. Lung sounds diminished/wheezing. OOB with 1 assist. SL in R Hand. OOB with 1 assist. Maintained droplet precaution. Anticipate to return home when medically stable. Will monitor.
--- NOTE | 2017-10-16 04:00 | NUR ---
OBS: Assessment unchanged. Pt sleeping in bed without any complaints. SL in R Hand. Hourly rounds. Will monitor.
[2017-10-16] MEDS: ACETAMINOPHEN 325 MG TAB PO PRN (05:56)
[2017-10-16] MEDS: ALBUT/IPRATROP 3MG/0.5MG NEB 3 ML VIAL INH SCH ×4 (06:07→19:26)
[2017-10-16 06:29] LABS: HEMATOCRIT 38.9 % (37-47); HEMOGLOBIN 13.1 g/dL (12.0-16.0); MEAN CELL VOLUME 82.2 fL (80-100); MEAN CORPUSCULAR HEMOGLOBIN 27.7 pg (25-34); MEAN CORPUSCULAR HGB CONC 33.7 g/dl (32-36); MEAN PLATELET VOLUME 10.3 fL (7.4-10.4); PLATELET COUNT 234 K/uL (130-400); RED CELL DISTRIBUTION WIDTH CV 14.2 % (11.5-14.5); RED CELL DISTRIBUTION WIDTH SD 42.9 fL (36.4-46.3); WHITE BLOOD COUNT 6.17 K/uL (4.8-10.8)
[2017-10-16 06:57] LABS: CALCIUM 9.2 mg/dl (8.5-10.1); CREATININE 0.75 mg/dl (0.60-1.20)
[2017-10-16] MEDS: IPRATROPIUM BROMIDE/ALBUTEROL respimat INH INH SCH ×2 (08:29→12:12)
[2017-10-16] MEDS: FLUTICASONE/SALMETEROL (ADVAIR) 500/50 INH 14 PUFF INH SCH ×2 (08:29→20:56)
[2017-10-16] MEDS: AZITHROMYCIN 250 MG TAB PO SCH (08:30)
[2017-10-16] MEDS: CALCIUM CARBONATE 1250MG TAB PO SCH (08:30)
[2017-10-16] MEDS: CARVEDILOL 3.125 MG TAB PO SCH ×2 (08:30→21:08)
[2017-10-16] MEDS: ASPIRIN 325 MG ECTAB PO SCH (08:30)
[2017-10-16] MEDS: CHOLECALCIFEROL 1000 INTER.UNIT TAB PO SCH (08:30)
[2017-10-16] MEDS: MAGNESIUM OXIDE 400 MG TAB PO SCH (08:30)
[2017-10-16] MEDS: OSELTAMIVIR PHOSPHATE 75 MG CAP PO SCH ×2 (08:30→21:11)
[2017-10-16] MEDS: PANTOprazole SOD 40 MG TAB PO SCH (08:30)
[2017-10-16] MEDS: FUROSEMIDE 40 MG TAB PO SCH (08:30)
[2017-10-16] MEDS: HEPARIN SOD 5000 UNIT/0.5 ML CARP SQ SCH ×2 (08:34→21:07)
--- NOTE | 2017-10-16 09:40 | NUR ---
A/ID: Assessment completed, see EMR. Alert and oriented X4. VSS. Denies CP. Lungs coarse throughout with expiratory wheezing throughout on 3L N/C. SOB and a moist non-productive cough noted. Bowel sounds WNL. Voiding. + pedal pulses with no edema noted. Tolerating diet. Turned and repositioned. Call cardenas within reach. Verbalizes no needs at this time. Plan for home upon discharge at this time.
--- NOTE | 2017-10-16 11:55 | Family Medicine Progress Note ---
Progress Note Date of Service Oct 16, 2017. Subjective Pt evaluation today including: conversation w/ patient, conversation w/ family , physical exam, chart review, lab review, review of studies, review of inpatient medication list Pain: denies PO Intake: adequate Voiding: no voiding problems NO acute events overnight. Patient reports Chest tightness and SOB have improved thought no completely resolved. she continues to cough. She denies wheezing. SHe has been maintaining good so2 saturation on room air Constitutional: No fever, No chills Respiratory: + cough, + shortness of breath Cardiovascular: No chest pain, No edema, No palpitations Abdomen: No pain, No nausea, No vomiting, No diarrhea Skin: No rash, No itch Medications Current Inpatient Medications Medications (Trade) Dose Ordered Sig/Juarez Route Start Time Stop Time Status Last Admin Dose Admin Acetaminophen (Tylenol Tab) 650 mg Q4H PRN PO 10/15/17 13:45 11/14/17 13:44 10/16/17 05:56 650 MG Al Hydrox/Mg Hydrox/Simethicone (Maalox Max Susp) 15 ml Q4H PRN PO 10/15/17 13:45 11/14/17 13:44 Magnesium Hydroxide (Milk Of Magnesia Susp) 30 ml Q6H PRN PO 10/15/17 13:45 11/14/17 13:44 Polyethylene (Miralax Powder Packet) 17 gm DAILY PRN PO 10/15/17 13:45 11/14/17 13:44 Ondansetron HCl (Zofran Inj) 4 mg Q6H PRN IV 10/15/17 13:45 11/14/17 13:44 Heparin Sodium (Porcine) (Heparin Sq 5000 Unit/0.5ml) 5,000 unit Q12 SQ 10/15/17 21:00 11/14/17 20:59 10/16/17 21:07 5,000 UNIT Albuterol/ Ipratropium (Duoneb) 3 ml QIDR INH 10/15/17 16:00 11/14/17 15:59 10/16/17 19:26 3 ML Azithromycin (Zithromax Tab) 250 mg QAM PO 10/16/17 09:00 10/20/17 08:59 10/16/17 08:30 250 MG Methylprednisolone Sodium Succinate 60 mg/Syringe 0.96 ml @ 1.5 mls/min Q12H IV 10/16/17 00:00 11/15/17 00:00 10/16/17 23:48 1.5 MLS/MIN Aspirin (Ecotrin Tab) 325 mg QAM PO 10/16/17 09:00 11/15/17 08:59 10/16/17 08:30 325 MG Atorvastatin Calcium (Lipitor Tab) 40 mg QPM PO 10/15/17 21:00 11/14/17 20:59 10/16/17 21:12 40 MG Carvedilol (Coreg Tab) 3.125 mg BID PO 10/15/17 21:00 11/14/17 20:59 10/16/17 21:08 3.125 MG Cholecalciferol (Vitamin D Tab) 1,000 inter.unit QAM PO 10/16/17 09:00 11/15/17 08:59 10/16/17 08:30 1,000 INTER.UNIT Citalopram Hydrobromide (celeXA TAB) 20 mg HS PO 10/15/17 21:00 11/14/17 20:59 10/16/17 21:11 20 MG Salmeterol Xinafoate/ Fluticasone (Advair Diskus 500/50 Inh) 1 puff BID INH 10/15/17 21:00 11/14/17 20:59 10/16/17 20:56 1 PUFF Furosemide (Lasix Tab) 40 mg QAM PO 10/16/17 09:00 11/15/17 08:59 10/16/17 08:30 40 MG Gabapentin (Neurontin Cap) 300 mg HS PO 10/15/17 21:00 11/14/17 20:59 10/16/17 21:11 300 MG Calcium Carbonate (oS-Jr 500 TAB) 1,250 mg QAM PO 10/16/17 09:00 11/15/17 08:59 10/16/17 08:30 1,250 MG Pantoprazole Sodium (Protonix Tab) 40 mg QAM PO 10/16/17 09:00 11/15/17 08:59 10/16/17 08:30 40 MG Tiotropium [place] (Spiriva Handihaler Inhaler) 1 puff HS INH 10/15/17 21:00 11/14/17 20:59 10/16/17 21:09 1 PUFF Trazodone HCl (Desyrel Tab) 50 mg HS PO 10/15/17 21:00 11/14/17 20:59 10/16/17 21:10 50 MG Magnesium Oxide (Mag-Ox Tab) 400 mg DAILY PO 10/16/17 09:00 11/15/17 08:59 10/16/17 08:30 400 MG Miscellaneous (Iv Fluids Completed) 1 ea PRN PRN N/A 10/15/17 13:45 10/15/18 13:44 Oseltamivir Phosphate (Tamiflu Cap) 75 mg BID PO 10/15/17 21:00 10/20/17 20:59 10/16/17 21:11 75 MG Menthol (Nice Ashlyn) 1 ashlyn PRN PRN PO 10/15/17 23:00 11/14/17 22:59 Guaifenesin (Mucinex Contr Rel Tab) 600 mg Q12 PO 10/16/17 21:00 11/15/17 20:59 10/16/17 20:56 600 MG Benzonatate (Tessalon Perles Cap) 100 mg TID PRN PO 10/17/17 01:00 11/16/17 00:59 10/17/17 01:05 100 MG Objective Vital Signs Date Time Temp Pulse Resp B/P (MAP) Pulse Ox O2 Delivery O2 Flow Rate FiO2 10/16/17 11:19 81 18 94 Nasal Cannula 2.0 10/16/17 08:01 94 Nasal Cannula 2.0 10/16/17 07:31 36.7 77 20 130/77 (94) 94 Nasal Cannula 2.0 10/16/17 06:07 77 18 90 Nasal Cannula 2.0 10/16/17 00:00 Nasal Cannula 2.5 10/15/17 23:24 36.6 64 16 100/58 (72) 92 Room Air 10/15/17 21:28 70 100/61 (74) 10/15/17 19:43 71 18 92 Nasal Cannula 2.0 10/15/17 16:37 77 18 95 Nasal Cannula 2.0 10/15/17 16:27 37.2 77 20 101/60 (74) 91 10/15/17 16:25 93 Nasal Cannula 2.0 10/15/17 14:12 93 Nasal Cannula 2.0 12/26/17 13:13 81 20 94/51 93 Nasal Cannula 2.0 10/15/17 12:09 81 Physical Exam Notes: GENERAL: alert, no distress, EYE EXAM: normal conjunctiva, PERRL and EOM's grossly intact NECK: supple, no nuchal rigidity, no adenopathy, non-tender LUNGS: diffuse expiratory wheezing bilaterally, no crackles, no rhonchi HEART: no murmurs, S1 normal and S2 normal ABDOMEN: abdomen soft, non-tender, normo-active bowel sounds, no masses, no rebound or guarding. UPPER EXTREMITIES: upper extremities are grossly normal. LOWER EXTREMITIES: No pitting edema. NEURO EXAM: Normal sensorium, cranial nerves II-XII grossly intact, normal speech Laboratory Results Results Past 24 Hours Test 10/15/17 13:35 10/16/17 06:10 10/16/17 07:43 Range/Units Influenza Type A Antigen POS for Influ A NEG Influenza Type B Antigen Neg for Influ B NEG White Blood Count 6.17 4.8-10.8 K/uL Red Blood Count 4.73 4.2-5.4 M/uL Hemoglobin 13.1 12.0-16.0 g/dL Hematocrit 38.9 37-47 % Mean Corpuscular Volume 82.2 80-100 fL Mean Corpuscular Hemoglobin 27.7 25-34 pg Mean Corpuscular Hemoglobin Concent 33.7 32-36 g/dl RDW Standard Deviation 42.9 36.4-46.3 fL RDW Coefficient of Variation 14.2 11.5-14.5 % Platelet Count 234 130-400 K/uL Mean Platelet Volume 10.3 7.4-10.4 fL Sodium Level 134 136-145 mmol/L Potassium Level 4.0 3.5-5.1 mmol/L Chloride Level 100 98-107 mmol/L Carbon Dioxide Level 28 21-32 mmol/L Anion Gap 6.0 3-11 mmol/L Blood Urea Nitrogen 19 7-18 mg/dl Creatinine 0.75 0.60-1.20 mg/dl Est Creatinine Clear Calc Drug Dose 74.9 ml/min Estimated GFR () 92.3 Estimated GFR (Non- 79.6 BUN/Creatinine Ratio 25.3 10-20 Random Glucose 132 70-99 mg/dl Calcium Level 9.2 8.5-10.1 mg/dl Magnesium Level 2.5 1.8-2.4 mg/dl Procalcitonin < 0.05 0-0.5 ng/ml Assessment and Plan 72 yo F h/o COPD, CAD s/p TX with stent x2, known RUL nodule presenting with SOB due to COPD exacerbation the setting of Influenza infection Dyspnea, COPD exacerbation, Influenza * clinically improving, afebrile currently on 2L oxygen, Wean O2 as tolerated to maintain saturation >90 * likely secondary to COPD exacerbation in the setting of influenza * CXR negative acut changes, Negative Procalitonin, so bacterial Pneumonia of low likelihood * Continue Tamiflu, Azithromycin, IV Solumedrol, Duoneb * Cough: Guaifenesin CAD, Diastolic CHF, HTN * stable, asx * no evidence of fluid overload on exam * Continue Coreg, Lipitor RUL nodule * stable, followed by Dr. Wilkerson ( Pulmonology) Neuropathy * Continue Gabapentin Insomnia * Continue Trazodone GERD * Continue Protonix Depression Anxiety * Continue Citalopram DVT prophylaxis * Continue Heparin Resident Physician Supervision Note: I interviewed and examined the patient. Discussed with Dr. Paredes and agree with findings and plan as documented in the note. Any exceptions or clarifications are listed here: None Documented By: Lico Mancia feeling a bit better, still w a tight cough and occassional mucous. breathing ok vitals noted nad breathing unlabored no pallor or icterus, lungs w coarse harsh breath sounsd and scattered wheeze CXR reviewed COPD exacerbation w hypoxic respiratory failure due to influenza A -supportive care -steroids -tamiflu -zithromax to cover atypicals based on data from COPD exacerbations -actually appears far better than i would've expected w COPD and flu - hopefully will continue to improve otherwise as above Continued [facility] stay due to: multiple IV medications needed Discharge planning: home Resident Tracking Resident Involvement: Resident Care Provided Care Provided: Adult Hospital Medicine
[2017-10-16] MEDS: METHYLPREDNISOLONE IV 60 MG in SYRINGE 0 ML IV SCH ×2 (12:11→23:48)
--- NOTE | 2017-10-16 13:41 | NUR ---
professor of social work for [facility]: asked to set up PCP appointment: important follow up appointment you have been scheduled for an appointment with your primary care physician, Dr. Winston, on Saturday10/22/17 at 3:00 PM. If you are unable to keep this appointment please call the office at [phone] above information entered into D/C instructions
--- NOTE | 2017-10-16 14:29 | NUR ---
Case Management: Met with pt for discharge planning needs. Pt lives alone in her own home and is independent with her care but does not drive. She relies on her sister to provide transport. Pt has oxygen at bedtime thru [employer]; 1 portable tank that was used to bring her into the ER and her sister took it back home. Pt also has a nebulizer. Pt has a dgt Mavis White in [place] - phone [phone] and a son in [place] - Ayden Christian [phone]. Pt is involved with the lung nodule program but also mentioned that Dr Wilkerson had wanted to set her up with Pulmonary Rehab. I did bring this to the Nurse Navigator's attention and she will get pt the information. No other needs at this time.
--- NOTE | 2017-10-16 14:41 | NUR ---
customer agent [facility]: I was contacted by Siri Wetzel RN Case Manager regarding pt's interest in participating in the pulmonary rehab program. I can see in [employer] that she is scheduled for PFT's and an appt w/ Dr. Wilkerson on November 11 at 9:[address] Wilkerson's office and his nurse entered a reminder for him to discuss (arrange?) pulm rehab for pt during this appt.
--- NOTE | 2017-10-16 16:10 | NUR ---
OBS: Pt is a 72 y/o female admitted with COPD exac. +Flu. Droplet precautions. Started on tamiflu yest. A/O x4. Lungs are +Wheezing, coarse on 2.5L NC, wears 2.5L NC at baseline chronic at bedtime. Nonproductive cough. MOYER. Tolerating AHA diet well. OOB independent. Abnormal toes - defect. R hand sL. Encouraged to ring for assist no discharge plans at this time.
--- NOTE | 2017-10-16 20:00 | NUR ---
OBS: Pt is resting in room. Still states gets MOYER, having difficulty taking a deep breathe. on 2-3 L NC. Droplet precautions for flu. Ambulating in room with steady gait. R hand SL. Encouraged to ring for assist.
[2017-10-16] MEDS: GUAIFENESIN 600 MG TABCR PO SCH (20:56)
[2017-10-16] MEDS: TIOTROPIUM BROMIDE 5 PUFF/90 MCG INH INH SCH (21:09)
[2017-10-16] MEDS: TRAZODONE HCL 50 MG TAB PO SCH (21:10)
[2017-10-16] MEDS: GABAPENTIN 300 MG CAP PO SCH (21:11)
[2017-10-16] MEDS: CITALOPRAM 20 MG TAB PO SCH (21:11)
[2017-10-16] MEDS: ATORVASTATIN 40 MG TAB PO SCH (21:12)
[2017-10-17] VITALS (10 sets, daily range): BP systolic 118–147; BP diastolic 80–82; PULSE 65–82; TEMP 36.7–36.8; O2SAT 91–97
--- NOTE | 2017-10-17 | NUR ---
OBS/ID: Pt c/o lack of sleep, requesting sleeping aid medication. AAO x 4, VSS on 2.5L. Lung sounds coarse/expiratory wheezing. OOB with 1 assist. SL in R Hand. OOB independently/supervision. Maintained droplet precaution. Pt is from home, might need pulmonary rehab upon discharge; SS following. Will monitor.
[2017-10-17] MEDS ORDERED: NURSING VERBAL MED ORDER ONE (00:30)
[2017-10-17] MEDS ORDERED: hydrOXYzine HCL 25 MG TAB PO STA (00:48)
[2017-10-17] MEDS: BENZONATATE 100MG CAP PO PRN ×2 (01:05→22:01)
--- NOTE | 2017-10-17 04:00 | NUR ---
OBS: Assessment unchanged. Pt sleeping in bed. Saline locked. Will monitor.
[2017-10-17] MEDS: ALBUT/IPRATROP 3MG/0.5MG NEB 3 ML VIAL INH SCH ×4 (07:06→19:06)
[2017-10-17 07:17] LABS: HEMATOCRIT 39.5 % (37-47); HEMOGLOBIN 13.1 g/dL (12.0-16.0); MEAN CELL VOLUME 83.3 fL (80-100); MEAN CORPUSCULAR HEMOGLOBIN 27.6 pg (25-34); MEAN CORPUSCULAR HGB CONC 33.2 g/dl (32-36); MEAN PLATELET VOLUME 10.6 fL (7.4-10.4); PLATELET COUNT 232 K/uL (130-400); RED CELL DISTRIBUTION WIDTH CV 14.4 % (11.5-14.5); RED CELL DISTRIBUTION WIDTH SD 43.6 fL (36.4-46.3); WHITE BLOOD COUNT 8.59 K/uL (4.8-10.8)
[2017-10-17 07:44] LABS: CALCIUM 9.2 mg/dl (8.5-10.1); CREATININE 0.75 mg/dl (0.60-1.20); POTASSIUM 4.4 mmol/L (3.5-5.1)
[2017-10-17] MEDS: CALCIUM CARBONATE 1250MG TAB PO SCH (09:38)
[2017-10-17] MEDS: CHOLECALCIFEROL 1000 INTER.UNIT TAB PO SCH (09:38)
[2017-10-17] MEDS: MAGNESIUM OXIDE 400 MG TAB PO SCH (09:38)
[2017-10-17] MEDS: PANTOprazole SOD 40 MG TAB PO SCH (09:38)
[2017-10-17] MEDS: ASPIRIN 325 MG ECTAB PO SCH (09:38)
[2017-10-17] MEDS: OSELTAMIVIR PHOSPHATE 75 MG CAP PO SCH ×2 (09:38→22:05)
[2017-10-17] MEDS: CARVEDILOL 3.125 MG TAB PO SCH ×2 (09:39→22:04)
[2017-10-17] MEDS: GUAIFENESIN 600 MG TABCR PO SCH ×2 (09:41→22:03)
[2017-10-17] MEDS: FLUTICASONE/SALMETEROL (ADVAIR) 500/50 INH 14 PUFF INH SCH ×2 (09:42→22:01)
[2017-10-17] MEDS: FUROSEMIDE 40 MG TAB PO SCH (09:47)
[2017-10-17] MEDS: AZITHROMYCIN 250 MG TAB PO SCH (09:47)
[2017-10-17] MEDS: HEPARIN SOD 5000 UNIT/0.5 ML CARP SQ SCH ×2 (09:51→22:14)
--- NOTE | 2017-10-17 12:00 | NUR ---
OBS NOTE: Pt is alert and oriented x's 4; Lungs coarse on NC with expiratory wheeze and cough noted; SL in LUE; Pt tolerating diet at this time; Pt states pain is tolerable; ambulates indep to restroom; Pt denies any difficulty with voiding; Pt is on droplet precautions at this time; Plan is to DC home after medically cleared; Will continue to monitor.
[2017-10-17] MEDS: METHYLPREDNISOLONE IV 60 MG in SYRINGE 0 ML IV SCH (12:50)
--- NOTE | 2017-10-17 12:53 | NUR ---
A NOTE: Pt's O2 taken down to 1.5L NC per order to ween pt. Pt currently is wearing a "breathe right" strip from home that she says her family doctor suggests she wears when she is on O2 d/t narrow nasal passages. Will continue to monitor.
--- NOTE | 2017-10-17 14:24 | NUR ---
A NOTE: Pt is ordered influenza vaccine; Pt refuses vaccine at this time. Will continue to monitor.
--- NOTE | 2017-10-17 16:14 | Family Medicine Progress Note ---
Progress Note Date of Service Oct 17, 2017. Subjective Pt evaluation today including: conversation w/ patient, physical exam, chart review, lab review, review of studies, review of inpatient medication list Pain: denies PO Intake: adequate Voiding: no voiding problems No acute events overnight. Overall patient is feeling better. Shortness of breath has improved. Productive cough continues. Additional Comments: Constitutional: No fever, No chills Respiratory: +cough , shortness of breath (improved) Cardiovascular: No chest pain, No edema, No palpitations Abdomen: No pain, No nausea, No vomiting, No diarrhea Skin: No rash, No itch Medications Current Inpatient Medications Medications (Trade) Dose Ordered Sig/Juarez Route Start Time Stop Time Status Last Admin Dose Admin Acetaminophen (Tylenol Tab) 650 mg Q4H PRN PO 10/15/17 13:45 11/14/17 13:44 10/16/17 05:56 650 MG Al Hydrox/Mg Hydrox/Simethicone (Maalox Max Susp) 15 ml Q4H PRN PO 10/15/17 13:45 11/14/17 13:44 Magnesium Hydroxide (Milk Of Magnesia Susp) 30 ml Q6H PRN PO 10/15/17 13:45 11/14/17 13:44 Polyethylene (Miralax Powder Packet) 17 gm DAILY PRN PO 10/15/17 13:45 11/14/17 13:44 Ondansetron HCl (Zofran Inj) 4 mg Q6H PRN IV 10/15/17 13:45 11/14/17 13:44 Heparin Sodium (Porcine) (Heparin Sq 5000 Unit/0.5ml) 5,000 unit Q12 SQ 10/15/17 21:00 11/14/17 20:59 10/17/17 09:51 5,000 UNIT Albuterol/ Ipratropium (Duoneb) 3 ml QIDR INH 10/15/17 16:00 11/14/17 15:59 10/17/17 19:06 3 ML Azithromycin (Zithromax Tab) 250 mg QAM PO 10/16/17 09:00 10/20/17 08:59 10/17/17 09:47 250 MG Aspirin (Ecotrin Tab) 325 mg QAM PO 10/16/17 09:00 11/15/17 08:59 10/17/17 09:38 325 MG Atorvastatin Calcium (Lipitor Tab) 40 mg QPM PO 10/15/17 21:00 11/14/17 20:59 10/16/17 21:12 40 MG Carvedilol (Coreg Tab) 3.125 mg BID PO 10/15/17 21:00 11/14/17 20:59 10/17/17 09:39 3.125 MG Cholecalciferol (Vitamin D Tab) 1,000 inter.unit QAM PO 10/16/17 09:00 11/15/17 08:59 10/17/17 09:38 1,000 INTER.UNIT Citalopram Hydrobromide (celeXA TAB) 20 mg HS PO 10/15/17 21:00 11/14/17 20:59 10/16/17 21:11 20 MG Salmeterol Xinafoate/ Fluticasone (Advair Diskus 500/50 Inh) 1 puff BID INH 10/15/17 21:00 11/14/17 20:59 10/17/17 09:42 1 PUFF Furosemide (Lasix Tab) 40 mg QAM PO 10/16/17 09:00 11/15/17 08:59 10/17/17 09:47 40 MG Gabapentin (Neurontin Cap) 300 mg HS PO 10/15/17 21:00 11/14/17 20:59 10/16/17 21:11 300 MG Calcium Carbonate (oS-Jr 500 TAB) 1,250 mg QAM PO 10/16/17 09:00 11/15/17 08:59 10/17/17 09:38 1,250 MG Pantoprazole Sodium (Protonix Tab) 40 mg QAM PO 10/16/17 09:00 11/15/17 08:59 10/17/17 09:38 40 MG Tiotropium [place] (Spiriva Handihaler Inhaler) 1 puff HS INH 10/15/17 21:00 11/14/17 20:59 10/16/17 21:09 1 PUFF Trazodone HCl (Desyrel Tab) 50 mg HS PO 10/15/17 21:00 11/14/17 20:59 10/16/17 21:10 50 MG Magnesium Oxide (Mag-Ox Tab) 400 mg DAILY PO 10/16/17 09:00 11/15/17 08:59 10/17/17 09:38 400 MG Miscellaneous (Iv Fluids Completed) 1 ea PRN PRN N/A 10/15/17 13:45 10/15/18 13:44 Oseltamivir Phosphate (Tamiflu Cap) 75 mg BID PO 10/15/17 21:00 10/20/17 20:59 10/17/17 09:38 75 MG Menthol (Nice Ashlyn) 1 ashlyn PRN PRN PO 10/15/17 23:00 11/14/17 22:59 Guaifenesin (Mucinex Contr Rel Tab) 600 mg Q12 PO 10/16/17 21:00 11/15/17 20:59 10/17/17 09:41 600 MG Benzonatate (Tessalon Perles Cap) 100 mg TID PRN PO 10/17/17 01:00 11/16/17 00:59 10/17/17 01:05 100 MG Prednisone (PredniSONE TAB) 60 mg QAM PO 10/18/17 09:00 11/17/17 08:59 Objective Vital Signs Date Time Temp Pulse Resp B/P (MAP) Pulse Ox O2 Delivery O2 Flow Rate FiO2 10/17/17 15:23 36.8 70 18 118/80 (93) 93 Nasal Cannula 1.0 10/17/17 15:20 69 18 96 Nasal Cannula 2.0 10/17/17 12:57 97 Nasal Cannula 1.5 10/17/17 11:15 82 18 91 Room Air 10/17/17 09:30 Nasal Cannula 2.0 10/17/17 07:53 36.7 67 20 147/81 (103) 97 Room Air 10/17/17 07:06 65 18 93 Nasal Cannula 2.0 10/17/17 00:15 36.7 72 18 133/80 (97) 93 Nasal Cannula 2.0 10/17/17 00:00 Nasal Cannula 2.5 10/16/17 19:26 79 20 91 Nasal Cannula 2.0 Physical Exam Notes: GENERAL: alert, no distress, EYE EXAM: normal conjunctiva, PERRL and EOM's grossly intact NECK: supple, no nuchal rigidity, no adenopathy, non-tender LUNGS: mild scattered wheeze, no crackles, no rhonchi HEART: no murmurs, S1 normal and S2 normal ABDOMEN: abdomen soft, non-tender, normo-active bowel sounds, no masses, no rebound or guarding. UPPER EXTREMITIES: upper extremities are grossly normal. LOWER EXTREMITIES: No pitting edema. NEURO EXAM: Normal sensorium, cranial nerves II-XII grossly intact, normal speech Laboratory Results Results Past 24 Hours Test 10/17/17 06:50 Range/Units White Blood Count 8.59 4.8-10.8 K/uL Red Blood Count 4.74 4.2-5.4 M/uL Hemoglobin 13.1 12.0-16.0 g/dL Hematocrit 39.5 37-47 % Mean Corpuscular Volume 83.3 80-100 fL Mean Corpuscular Hemoglobin 27.6 25-34 pg Mean Corpuscular Hemoglobin Concent 33.2 32-36 g/dl RDW Standard Deviation 43.6 36.4-46.3 fL RDW Coefficient of Variation 14.4 11.5-14.5 % Platelet Count 232 130-400 K/uL Mean Platelet Volume 10.6 7.4-10.4 fL Sodium Level 137 136-145 mmol/L Potassium Level 4.4 3.5-5.1 mmol/L Chloride Level 101 98-107 mmol/L Carbon Dioxide Level 30 21-32 mmol/L Anion Gap 6.0 3-11 mmol/L Blood Urea Nitrogen 25 7-18 mg/dl Creatinine 0.75 0.60-1.20 mg/dl Est Creatinine Clear Calc Drug Dose 74.9 ml/min Estimated GFR () 92.3 Estimated GFR (Non- 79.6 BUN/Creatinine Ratio 33.5 10-20 Random Glucose 140 70-99 mg/dl Calcium Level 9.2 8.5-10.1 mg/dl Assessment and Plan 72 yo F h/o COPD, CAD s/p CT with stent x2, known RUL nodule presenting with SOB due to COPD exacerbation the setting of Influenza infection Dyspnea, COPD exacerbation, Influenza * clinically improving, Wean O2 as tolerated to maintain saturation >90 * likely secondary to COPD exacerbation in the setting of influenza * CXR negative acute changes, Negative Procalcitonin, so bacterial Pneumonia of low likelihood * Continue Tamiflu, Azithromycin, Duoneb * D/C IV Solumedrol , Convert to PO Prednisone 60 mg, Taper on discharge * Cough: Guaifenesin CAD, Diastolic CHF, HTN * stable, asx * no evidence of fluid overload on exam * Continue Coreg, Lipitor RUL nodule * stable, followed by Dr. Wilkerson ( Pulmonology) Neuropathy * Continue Gabapentin Insomnia * Continue Trazodone GERD * Continue Protonix Depression Anxiety * Continue Citalopram DVT prophylaxis * Continue Heparin Resident Physician Supervision Note: I interviewed and examined the patient. Discussed with Dr. Paredes and agree with findings and plan as documented in the note. Any exceptions or clarifications are listed here: None Documented By: Lico Mancia feeling better, still coughing and thick feeling mucous nonproductive vitals noted nad breathing unlabored no pallor or icterus acute hypoxic respiratory failure caused by influenza superimposed on COPD exacerbation -improving -taper steroids -hopefully home tomorrow Continued [facility] stay due to: abnormal vital signs Discharge planning: home Resident Tracking Resident Involvement: Resident Care Provided Care Provided: Adult Hospital Medicine
[2017-10-17] MEDS ORDERED: POLYETHYLENE (MIRALAX) 17 GM PACK PO PRN (18:45)
[2017-10-17] MEDS: TIOTROPIUM BROMIDE 5 PUFF/90 MCG INH INH SCH (22:02)
[2017-10-17] MEDS: CITALOPRAM 20 MG TAB PO SCH (22:03)
[2017-10-17] MEDS: TRAZODONE HCL 50 MG TAB PO SCH (22:03)
[2017-10-17] MEDS: GABAPENTIN 300 MG CAP PO SCH (22:03)
[2017-10-17] MEDS: ATORVASTATIN 40 MG TAB PO SCH (22:03)
--- NOTE | 2017-10-18 03:25 | NUR ---
ID: patient alert and oriented x 4. No complaints of pain. Droplet precautions for flu. Plan for possible d/c in AM. See EMR for full head to toe assessment. Will continue to monitor.
[2017-10-18] MEDS: ALBUT/IPRATROP 3MG/0.5MG NEB 3 ML VIAL INH SCH ×2 (07:00→11:15)
[2017-10-18 07:01] VITALS: PULSE 55; O2SAT 94
[2017-10-18 07:46] VITALS: BP 138/86; PULSE 62; TEMP 36.6; O2SAT 95
[2017-10-18 08:02] LABS: HEMATOCRIT 41.7 % (37-47); HEMOGLOBIN 13.9 g/dL (12.0-16.0); MEAN CELL VOLUME 83.7 fL (80-100); MEAN CORPUSCULAR HEMOGLOBIN 27.9 pg (25-34); MEAN CORPUSCULAR HGB CONC 33.3 g/dl (32-36); MEAN PLATELET VOLUME 10.1 fL (7.4-10.4); PLATELET COUNT 248 K/uL (130-400); RED CELL DISTRIBUTION WIDTH CV 14.4 % (11.5-14.5); RED CELL DISTRIBUTION WIDTH SD 44.3 fL (36.4-46.3); WHITE BLOOD COUNT 7.62 K/uL (4.8-10.8)
[2017-10-18 08:34] LABS: CREATININE 0.73 mg/dl (0.60-1.20); POTASSIUM 3.9 mmol/L (3.5-5.1)
[2017-10-18] MEDS: FUROSEMIDE 40 MG TAB PO SCH (08:47)
[2017-10-18] MEDS: FLUTICASONE/SALMETEROL (ADVAIR) 500/50 INH 14 PUFF INH SCH (08:47)
[2017-10-18] MEDS: CARVEDILOL 3.125 MG TAB PO SCH (08:47)
[2017-10-18] MEDS: CHOLECALCIFEROL 1000 INTER.UNIT TAB PO SCH (08:47)
[2017-10-18] MEDS: ASPIRIN 325 MG ECTAB PO SCH (08:47)
[2017-10-18] MEDS: CALCIUM CARBONATE 1250MG TAB PO SCH (08:47)
[2017-10-18] MEDS: AZITHROMYCIN 250 MG TAB PO SCH (08:47)
[2017-10-18] MEDS: PANTOprazole SOD 40 MG TAB PO SCH (08:48)
[2017-10-18] MEDS: MAGNESIUM OXIDE 400 MG TAB PO SCH (08:48)
[2017-10-18] MEDS: OSELTAMIVIR PHOSPHATE 75 MG CAP PO SCH (08:48)
[2017-10-18] MEDS: GUAIFENESIN 600 MG TABCR PO SCH (08:48)
[2017-10-18] MEDS: HEPARIN SOD 5000 UNIT/0.5 ML CARP SQ SCH (08:55)
[2017-10-18] MEDS ORDERED: PRED10TA PO (10:55)
[2017-10-18] MEDS ORDERED: AZIT-57 PO (10:55)
[2017-10-18] MEDS ORDERED: TMF75 PO (10:55)
[2017-10-18] MEDS ORDERED: BENZ100C7 PO (10:55)
--- NOTE | 2017-10-18 11:10 | Discharge Instructions ---
Discharge Instructions Date of Service Oct 18, 2017. Admission Reason for Admission: Copd Exacerbation Discharge Discharge Diagnosis / Problem: COPD exacerbation caused by Influenza Discharge Goals Goal(s): Improve disease control, Therapeutic intervention Activity Recommendations Activity Limitations: resume your previous activity Exercise/Sports Limitations: gradually increase as tolerated . Instructions / Follow-Up Instructions / Follow-Up You were admitted to the hospital for the treatment of your COPD exacerbation secondary to Influenza A. You were treated in the hospital with steroids as well as your at home inhalers and a course of antibiotics (azithromycin) and a medication to help shorten your influenza illness (Tamiflu). With regards to your COPD exacerbation we would like you to continue your at home inhalers but we would also like you to continue a scheduled "rescue" inhaler treatments as well as a prednisone taper. 1. The following will be your schedule for your rescue inhaler schedule: Today and tomorrow 4 puffs of your Combivent with spacer OR nebulizer every 4- 6hours On Saturday/Saturday- 2 puffs of Combivent WITH spacer every 8 hours Saturday- 2 puffs in the morning and at night - You will see your PCP on the so you can discuss with them how to continue this regimen 2. With regards to your prednisone taper: 60 mg TOMORROW day 2/3- 50 mg day 4/ 40 mg day 6/ 30 mg day 05/29 20 mg day 07/31 10 mg and then STOP We discussed extensively the risks of using steroids and considering the frequent use of the steroids we recommend that you discuss with your PCP the need for a repeat DEXA scan to check the density of your bones. We also recommend to keep taking your VIT D and calcium supplements to help keep your bones strong. I would recommend checking a Vit D level with your PCP to see if you require a higher dose of VIT D Also we did discuss the importance of vaccinations. Please discuss getting this years influenza vaccine with your PCP. We also recommend that you get your influenza vaccine at the beginning of fall as this can be more preventative than getting the vaccine during the flu season. We also discussed the potential concern for a superimposed bacterial infection. Please be aware of any changes in your cough/ sputum (phlegm) colour, developing a fever or worsening shortness of breath as this may be a developing pneumonia. In summary, 1. continue your regular home inhalers 2. Continue Azithromycin for one more day 3. Continue Tamiflu tonight, tomorrow and a final dose on saturday morning 4. Discuss Dexa scan and Vit D with your PCP 5. Remember, influenza vaccine in the fall once available 4. Prednisone taper and scheduled rescue inhaler doses as noted above 5. Remember to be vigilant about changes to cough, phlegm or developing fever and contact your PCP laureano We Wish you well Gabriel gutierrez Current Hospital Diet Patient's current hospital diet: AHA Diet (Heart Healthy) Discharge Diet Recommended Diet: Regular Diet Pending Studies Studies pending at discharge: no Medical Emergencies . Who to Call and When: Medical Emergencies: If at any time you feel your situation is an emergency, please call 911 immediately. . Non-Emergent Contact Non-Emergency issues call your: Primary Care Provider, [employer] Call Non-Emergent contact if: you have a fever, your pain is worsening, you have any medication questions . . "Provider Documentation" section prepared by Mallorie Gutierrez. . VTE Core Measure Inpt VTE Proph given/why not?: Unfractionated heparin SQ, T.E.Archie. Rossy, SCD 's
[2017-10-18 11:17] VITALS: PULSE 61; O2SAT 93
[2017-10-18 11:58] VITALS: BP 138/86; PULSE 61; TEMP 36.6; O2SAT 93
--- NOTE | 2017-10-18 12:35 | Discharge Summary ---
Discharge Summary Date of Service Oct 18, 2017. Discharge Summary Admission Date: Oct 17, 2017 at 17:06 Discharge Date: Oct 18, 2017 Discharge Disposition: Home Principal Diagnosis: COPD / influenza Problems/Secondary Diagnoses: COPD Vit D Deficiency Mood Disorder Diastolic CHF HTN Medication Reconciliation New Medications: Prednisone Tab (Prednisone) 10 Mg Tab 10 MG PO DAILY for 11 Days, #36 TAB 60 mg x1 day, 50 mg x 2 days, 40 mg x 2 days, 30 mg x 2 days, 20 mg x 2 days, 10 mg x 2 days Azithromycin (Azithromycin) 250 Mg Tab 250 MG PO QAM for 1 Day, #1 TAB Benzonatate (Benzonatate) 100 Mg Cap 100 MG PO TID PRN for Cough for 5 Days, #15 CAP Oseltamivir Phosphate (Tamiflu) 75 Mg Cap 75 MG PO BID for 2 Days, #4 CAP Continued Medications: Albuterol Sulfate (Albuterol Sulfate) 1.25 Mg/3 Ml Neb 1 VIAL NEB Q4 PRN for Shortness of Breath for 5 Days, #75 ML Aspirin (Aspirin) 325 Mg Tab 325 MG PO QAM Atorvastatin (Lipitor) 40 Mg Tab 40 MG PO QPM, TAB B-Complex Vitamins (Vitamin B Complex) 1 Tab Tab 1 TAB PO QAM Carvedilol (Coreg) 3.125 Mg Tab 3.125 MG PO BID Cholecalciferol (Vitamin D3) 1,000 Unit Tab 1000 UNITS PO QAM Citalopram Hydrobromide (Citalopram Hydrobromide) 20 Mg Tab 20 MG PO HS Fluticasone Prop/Salmeterol (Advair Diskus 500/50 60 Dose) 1 Ea Aerp 1 PUFF INH BID, INHALER Furosemide (Lasix) 40 Mg Tab 40 MG PO QAM, TAB Gabapentin (Neurontin) 300 Mg Cap 300 MG PO HS, CAP Magnesium Oxide (Mg Supplement (Magnesium) Unknown Strength Cap 1 CAP PO QAM Oyster Shell (Calcium) 500 Mg Tab 1 TAB PO QAM Pantoprazole (Protonix) 40 Mg Tab 40 MG PO QAM, #30 TAB Tiotropium [place] (Spiriva Handihaler) 30 Puff/540 Mcg Aerp 1 CAP INH HS, INHALER Trazodone Hcl (Trazodone) 50 Mg Tab 50 MG PO HS, TAB Discontinued Medications: Prednisone (Prednisone) 10 Mg Tab 1 DOSE PO UD PREDNISONE TAPER Discharge Exam Patient is much improved today with minimal shortness fo breath with exertion Discussed discharge home and instructions and patient reflected understanding All questions addressed and patient comfortable for d/c home Review of Systems: Constitutional: No fever Eyes: No worsening of vision ENT: No hearing loss Respiratory: + cough (improved), + wheezing (improved), + dyspnea on exertion (improved), No sputum, No shortness of breath, No dyspnea at rest, No hemoptysis Cardiovascular: No chest pain Abdomen: No pain, No nausea, No vomiting, No diarrhea, No constipation Musculoskeletal: No joint pain, No muscle pain Genitourinary - Female: No dysuria, No hematuria Neurologic: + weakness, No numbness/tingling, No balance problems Psychiatric: No depression symptoms Endocrine: + fatigue Hematologic / Lymphatic: No abnormal bleeding/bruising Integumentary: No rash Physical Exam: General Appearance: no apparent distress Eyes: normal inspection ENT: normal ENT inspection Neck: supple Respiratory/Chest: + decreased breath sounds (throughout but good air movement ), + crackles (occasional crackle in the bases), + wheezing ( expiratory wheezing continues but much improved) Cardiovascular: regular rate, rhythm, no murmur, normal peripheral pulses Abdomen / GI: normal bowel sounds, non tender, soft Neurologic/Psychiatric: alert, normal mood/affect, oriented x 3 Skin: normal color, warm/dry, no rash Lymphatic: no adenopathy Hospital Course 72 yo F h/o COPD, CAD s/p VA with stent x2, known RUL nodule that presented to the ED with severe shortness or breath and wheezing. She was found to be hypoxic and placed on oxygen and when evaluated for influenza it was found she was positive for Influenza A. She was quickly treated with Azithro and Tamiflu as well as a prednisone taper. Patient was slowly weaned to RA and patient was comfortable for d/c home. Acute hypoxic respiratory failure secondary to COPD exacerbation most likely caused by Influenza A infection - on RA on d/c and 2.5 L overnight (BL) - Prednisone taper starting from 60 mg and decreasing by 10 mg every 2 days - patient was given a schedule for rescue inhaler treatment starting from 4 puff qid to 2 puffs bid to the day before her PCP appointment - Tamiflu and Azithro was continued for a full five day treatment - Tessalon perles rx given for 5 days - patient does have follow up with pulmonary on Nov 11 for follow up and PFT - We discussed extensively importance of having a influenza vaccine prior to flu season starting, still due for this year's influenza vaccine - Also discussed recurrent prednisone use; may consider a follow up DEXA/ Vit D level - home inhaler of Tiotropium and Advair unchanged CAD, Stable Diastolic CHF, HTN - Patient's Lasix 40 mg, Lipitor 40 mg and Coreg 3.125 mg bid was unchanged and continued throughout stay RUL nodule- Known to patient - stable, followed by Dr. Wilkerson ( Pulmonology) Neuropathy - Gabapentin 300 mg HS cont'd Insomnia - 50 mg HS Trazodone cont'd GERD - continued Protonix 40 mg daily - discussed additional use of TUMS for GERD with prednisone Mood Disorder - continued 20 mg of Citalopram DVT prophylaxis - Heparin received while in house Resident Physician Supervision Note: I interviewed and examined the patient. Discussed with Dr. Guerrero and agree with findings and plan as documented in the note. Any exceptions or clarifications are listed here: None Documented By: Lico Mancia feeling better ready to go home wants to go home vitals noted nad breathing unlabored no pallor or icterus influenza - see above. stable for home, finish out course of medications as above noted Total Time Spent: Less than 30 minutes This includes examination of the patient, discharge planning, medication reconciliation, and communication with other providers. Discharge Instructions Please refer to the electronic Patient Visit Report (Discharge Instructions) for additional information. Additional Copies To Danna Winston M.D.; Tino Wilkerson,
== END 2017-10-18 13:25 | disposition home or self-care (01) | DRG 193 ==
LOC: C.EDB 11:03 → C.MS2W 13:41 → ENRESERV 14:03 → OBSVTOIN 10-17 17:06
PROVIDERS: ADMIT Internal Medicine; ATTEND Family Medicine
DX: J10.00 Influenza due to other identified influenza virus with unspecified type of pneumonia (principal); J96.21 Acute and chronic respiratory failure with hypoxia; J44.0 Chronic obstructive pulmonary disease with (acute) lower respiratory infection; I50.30 Unspecified diastolic (congestive) heart failure; J44.1 Chronic obstructive pulmonary disease with (acute) exacerbation; J18.9 Pneumonia, unspecified organism; Z95.818 Presence of other cardiac implants and grafts; I25.2 Old myocardial infarction; I11.0 Hypertensive heart disease with heart failure; E78.5 Hyperlipidemia, unspecified; Z79.82 Long term (current) use of aspirin; F17.210 Nicotine dependence, cigarettes, uncomplicated; K21.9 Gastro-esophageal reflux disease without esophagitis; Z82.49 Family history of ischemic heart disease and other diseases of the circulatory system; G62.9 Polyneuropathy, unspecified; E55.9 Vitamin D deficiency, unspecified; R91.1 Solitary pulmonary nodule; G47.00 Insomnia, unspecified; F39 Unspecified mood [affective] disorder; R00.1 Bradycardia, unspecified; I25.5 Ischemic cardiomyopathy; Z79.52 Long term (current) use of systemic steroids; Z79.899 Other long term (current) drug therapy

== ENCOUNTER 2017-10-23 14:45 | Inpatient (IN) | payer OTHER ==
[~2017-10-23] VITALS: Ht 167.6 cm; Wt 84.0 kg
[~2017-10-23 14:45] MED LIST changes: -ASPECOTC PO; +ASPI325T45 PO; +AZIT-57 PO; +BENZ100C7 PO; +PRED10TA PO; +TMF75 PO
[2017-10-23 15:16] VITALS: BP 128/79; PULSE 72; TEMP 36.7; O2SAT 94; Ht 167.6 cm; Wt 84.0 kg
[2017-10-23] MEDS ORDERED: ONDANSETRON INJ 2 MG/ML 2 ML VIAL IV PRN (15:30)
[2017-10-23] MEDS ORDERED: INFLUENZA ADMINISTRATION CHARGE ONE (16:00)
[2017-10-23] MEDS ORDERED: INFLUENZA VIRUS QUAD VACCINE 0.5 ML SYR IM. ONE (16:00)
[2017-10-23] MEDS: METHYLPREDNISOLONE IV 60 MG in SYRINGE 0 ML IV SCH ×2 (16:18→23:42)
[2017-10-23 16:20] LABS: BASO % 0.1 %; BASO ABS # 0.02 K/uL (0-0.2); EOS % 0.1 %; EOS ABS # 0.01 K/uL (0-0.5); HEMATOCRIT 40.1 % (37-47); HEMOGLOBIN 13.5 g/dL (12.0-16.0); IG# 0.15 K/uL (0.00-0.02); LYMPH % 18.8 %; LYMPH ABS # 3.39 K/uL (1.2-3.4); MEAN CELL VOLUME 82.7 fL (80-100); MEAN CORPUSCULAR HEMOGLOBIN 27.8 pg (25-34); MEAN PLATELET VOLUME 9.5 fL (7.4-10.4); MONO % 9.8 %; MONO ABS # 1.77 K/uL (0.11-0.59); NEUT % 70.4 %; NEUT ABS # 12.68 K/uL (1.4-6.5); PLATELET COUNT 364 K/uL (130-400); RED CELL DISTRIBUTION WIDTH CV 14.3 % (11.5-14.5); RED CELL DISTRIBUTION WIDTH SD 42.5 fL (36.4-46.3); WHITE BLOOD COUNT 18.02 K/uL (4.8-10.8)
--- NOTE | 2017-10-23 16:28 | History and Physical ---
History & Physical Date & Time of Service: Oct 23, 2017 at 15:54 Chief Complaint: Copd Exacerbation Primary Care Physician: Danna Winston M.D. History of Present Illness Source: patient This is a 72 yo F with PMHx of COPD, granulomatous lung dz, HTN, HLD, ischemic cardiomyopathy, hx of ME, GERD, anxiety, recent influenza A, hx of tobacco smoking 1 ppd x 60 years. The patient quit smoking last week upon previous admission from 10/15-10/18 for worsening shortness of breath and found to have Influenza A infection. The patient was seen for her routine follow up appt with PCP today. She completed tamiflu course yesterday, and is currently finishing a prednisone taper. Today she took her second day of 30 mg, and was scheduled for another week of prednisone. She reports since going home her symptoms have not really improved. Her main complaint is that she has been waking up in the middle of the night at least twice gasping for air, her pulse ox has been as low as 85% on her 2L O2 which she wears at baseline, and requires a nebulizer treatment. The patient was recommended for inpatient admission for likely COPD exacerbation. Past Medical/Surgical History Medical Problems: (1) Anxiety (2) COPD (chronic obstructive pulmonary disease) (3) GERD (gastroesophageal reflux disease) (4) Heart attack (5) HLD (hyperlipidemia) (6) HTN (hypertension) (7) Hx of myocardial infarction (8) Influenza A (9) Ischemic cardiomyopathy Family History Drug abuse FH: heart disease FHx: alcohol abuse Social History Smoking Status: Former Smoker Smokeless Tobacco Use: No Alcohol Use: none Drug Use: none Marital Status: Housing status: lives alone Occupational Status: retired (residential electrician) Allergies Coded Allergies: Diazepam (Verified Allergy, Unknown, WAS TOLD NEVER TO TAKE AGAIN FROM RISK ASSESSOR, 10/15/17) Home Medications Scheduled Aspirin (Aspirin), 325 MG PO QAM Atorvastatin (Lipitor), 40 MG PO QPM Azithromycin (Azithromycin), 250 MG PO QAM B-Complex Vitamins (Vitamin B Complex), 1 TAB PO QAM Carvedilol (Coreg), 3.125 MG PO BID Cholecalciferol (Vitamin D3), 1,000 UNITS PO QAM Citalopram Hydrobromide (Citalopram Hydrobromide), 20 MG PO HS Fluticasone Prop/Salmeterol (Advair Diskus 500/50 60 Dose), 1 PUFF INH BID Furosemide (Lasix), 40 MG PO QAM Gabapentin (Neurontin), 300 MG PO HS Magnesium Oxide (Mg Supplement (Magnesium), 1 CAP PO QAM Oseltamivir Phosphate (Tamiflu), 75 MG PO BID Oyster Shell (Calcium), 1 TAB PO QAM Pantoprazole (Protonix), 40 MG PO QAM Prednisone Tab (Prednisone), 10 MG PO DAILY Tiotropium [place] (Spiriva Handihaler), 1 CAP INH HS Trazodone Hcl (Trazodone), 50 MG PO HS Scheduled PRN Albuterol Sulfate (Albuterol Sulfate), 1 VIAL NEB Q4 PRN for Shortness of Breath Benzonatate (Benzonatate), 100 MG PO TID PRN for Cough Review of Systems Constitutional: No fever, No chills, No sweats Eyes: No redness, No diplopia ENT: + sore throat, + problem reported (dry mouth), No unusual epistaxis, No nasal symptoms Respiratory: + cough, + wheezing, + shortness of breath, + dyspnea on exertion , + dyspnea at rest, No sputum Cardiovascular: + orthopnea, No chest pain, No edema, No palpitations Abdomen: No pain, No nausea, No vomiting, No diarrhea, No constipation (last BM yesterday) Musculoskeletal: No joint pain, No swelling, No calf pain Genitourinary - Female: No dysuria Neurologic: No numbness/tingling, No balance problems Psychiatric: No depression symptoms, No anxiety Endocrine: No fatigue Integumentary: No rash, No itch Physical Exam Vital Signs Date Time Temp Pulse Resp B/P (MAP) Pulse Ox O2 Delivery O2 Flow Rate FiO2 10/23/17 15:16 36.7 72 22 128/79 94 Room Air General Appearance: WD/WN, no apparent distress, + obese Head: normocephalic, atraumatic Eyes: normal inspection, EOMI ENT: hearing grossly normal, + pertinent finding (no pharyngeal exudate or erythema, MMM) Neck: supple, no JVD Respiratory/Chest: + pertinent finding (on 2 L via RA, diminished breath sounds throughout, + expiratory wheeze throughout and worse in the R base.) Cardiovascular: regular rate, rhythm, no murmur, normal peripheral pulses Abdomen/GI: normal bowel sounds, non tender, soft, + pertinent finding ( slightly distended) Back: normal inspection Extremities/Musculoskelatal: no calf tenderness, no pedal edema Neurologic/Psych: alert, normal mood/affect, oriented x 3 Skin: normal color, warm/dry Diagnostics Laboratory Results Results Past 24 Hours Test 10/23/17 15:25 Range/Units Microbiology Results 10/23/17 Blood Culture, Ordered Pending 10/23/17 Blood Culture, Ordered Pending 10/23/17 Gram Stain, Ordered Pending 10/23/17 Sputum Culture, Ordered Pending Impression Assessment and Plan This is a 72 yo F with PMHx of COPD, granulomatous lung dz, HTN, HLD, ischemic cardiomyopathy, hx of ME, GERD, anxiety, recent influenza A, hx of tobacco smoking 1 ppd x 60 years. The patient quit smoking last week upon previous admission from 10/15-10/18 for worsening shortness of breath and found to have Influenza A infection. Pt admitted from PCPs office for COPD exacerbation. COPD exacerbation Recent Influenza A Hx of tobacco abuse - Admit to tele - Solumedrol 60 mg Q8H to start now, failure of outpatient prednisone taper. Last dose was 10/23= 30 mg. - Ceftriaxone and vancomycin since pt was recently hospitalized. - Duonebs Q4H and Q2H prn, continue combivent, spiriva for now. - Continue other supportive care with mucinex, magic mouth wash, incentive spirometry - Sputum culture if can be produced with mucinex - Pt finished course of tamiflu yesterday - Did not receive the flu shot this year, pt reports normally gets this in October. Ordered. - Follow BCx x 2, lactic acid, CBC and PRP - Continue O2 protocol, normally wears 2 L via NC at night. - Recently quit smoking, pt requesting nicotine patch - Pt denies smoking cigarettes since previously being discharged. Counseling on cessation imperative upon discharge. HTN - Continue home meds with coreg 3.125 mg BID, lasix 40 mg daily HLD - Cont statin therapy with atorvastatin 40 mg daily GERD - Cont protonix - Pt with complaints of sore mouth and asking for magic mouthwash - likely from use of duonebs. No thrush seen in pharynx. DVT ppx: heparin subq, could transition to lovenox if PRP ok CODE STATUS: FULL CODE Disposition: From home and lives alone, PT/OT consults, discharge when medically stable, likely > 2 days. I personally interviewed and examined the patient. I agree with history of present illness and physical exam mentioned above, I also performed my own history taking and examination. Past medical history and review of system has been obtained by myself I reviewed all pertinent labs and studies Reviewed current medications I discussed and formulated of the assessment and plan mentioned above. Please refer to the Summary mentioned below. 72-year-old female recently diagnosed with flu, was on Tamiflu at home and she presented at her primary care physician office with COPD exacerbation/acute hypoxic respiratory failure/worsening general condition Patient was sent to the hospital and admitted for evaluation and management. Full secondary bacterial infection Vanco and ceftriaxone were started Patient continued on Tamiflu Blood cultures/sputum culture were ordered Bronchodilators and steroids General Appearance: not in acute distress Eyes: normal Sclerae, extraocular muscle intact ENT: hearing grossly normal Neck: supple Respiratory/Chest: Decreased air entry bilateral , mild respiratory distress, no accessory muscle use, also has bilateral wheezing Cardiovascular: regular rate, rhythm, + systolic murmur Abdomen: non tender, soft, no masses Extremities: no edema Neurologic/Psychiatric: Awake alert oriented times place and person moves all extremities sensation intact cranial nerves II-12 appear to be intact Skin: normal color, warm/dry, no rash Wang Tilley MD, [place] [facility] Level of Care Telemetry Advanced Directives Existing Living Will: No Existing Power of Baseball Hand Sewer: No Resuscitation Status FULL RESUSCITATION VTE Prophylaxis VTE Risk Assessment Done? Y/N: Yes Risk Level: Low Given or contraindicated: Unfractionated heparin SQ, SCD's
[2017-10-23] MEDS ORDERED: MAGIC MOUTHWASH PO PRN (16:30)
[2017-10-23] MEDS ORDERED: VANCOMYCIN INJ 2,000 MG in SODIUM CHLORIDE 0.9% 500ML 500 ML IV SCH (16:30)
[2017-10-23] MEDS ORDERED: VANCOMYCIN CONSULT ACTIVE PRN (16:30)
[2017-10-23 16:35] LABS: MEAN CORPUSCULAR HGB CONC 33.7 g/dl (32-36)
[2017-10-23] MEDS: ALBUT/IPRATROP 3MG/0.5MG NEB 3 ML VIAL INH SCH ×2 (16:45→20:57)
[2017-10-23 16:46] VITALS: PULSE 101; O2SAT 97
[2017-10-23 16:54] LABS: CREATININE 0.76 mg/dl (0.60-1.20); POTASSIUM 3.6 mmol/L (3.5-5.1)
[2017-10-23] MEDS: CEFTRIAXONE SOD INJ 1 GM in DEXTROSE 5% ADD-VANTAGE 50ML 50 ML IV SCH (19:02)
[2017-10-23 19:30] VITALS: BP 127/76; PULSE 75; TEMP 36.6; O2SAT 92
[2017-10-23] MEDS: GUAIFENESIN 600 MG TABCR PO SCH (20:22)
[2017-10-23] MEDS: CITALOPRAM 20 MG TAB PO SCH (20:23)
[2017-10-23] MEDS: TRAZODONE HCL 50 MG TAB PO SCH (20:23)
[2017-10-23] MEDS: GABAPENTIN 300 MG CAP PO SCH (20:23)
[2017-10-23] MEDS: ATORVASTATIN 40 MG TAB PO SCH (20:23)
[2017-10-23] MEDS: CARVEDILOL 3.125 MG TAB PO SCH (20:24)
[2017-10-23] MEDS: FLUTICASONE/SALMETEROL (ADVAIR) 500/50 INH 14 PUFF INH SCH (20:24)
[2017-10-23] MEDS: TIOTROPIUM BROMIDE 5 PUFF/90 MCG INH INH SCH (20:25)
[2017-10-23 20:51] LABS: INR 0.9 (0.9-1.1); PTT PATIENT 23.3 SECONDS (21.0-31.0)
--- NOTE | 2017-10-23 20:51 | DIAGNOSTIC IMAGING REPORT ---
CHEST 2 VIEWS ROUTINE CLINICAL HISTORY: 72 years-old Female presenting with assess for URI, copd exacerbation. TECHNIQUE: PA and lateral views of the chest were obtained. COMPARISON: 10/15/2017. FINDINGS: Atherosclerosis of aortic arch. Cardiac silhouette enlarged. Peripheral right mid lung nodule better evaluated on prior CT from 09/24/2017, located in the posterior right upper lobe. Diffusely heterogeneous lung markings with mild hyperinflation. No pleural effusion or pneumothorax. Osseous structures normal. Numerous external leads overlie the right lung base and right upper quadrant degrading evaluation. IMPRESSION: 1. Findings consistent with emphysema. No superimposed infiltrate. 2. Right upper lobe nodule better evaluated on prior CT. Primary bronchogenic neoplasm cannot be excluded. Electronically signed by: Adolfo Hwang M.D. 10/23/2017 8:50 PM Dictated Date/Time: 10/23/2017 8:47 PM
[2017-10-23 20:57] VITALS: PULSE 82; O2SAT 98
[2017-10-23] MEDS ORDERED: VANCOMYCIN INJ 1,000 MG in SODIUM CHLORIDE 0.9% 250ML 250 ML IV SCH (21:00)
[2017-10-23] MEDS ORDERED: OSELTAMIVIR PHOSPHATE 75 MG CAP PO SCH (21:00)
[2017-10-23] MEDS: HEPARIN SOD 5000 UNIT/0.5 ML CARP SQ SCH (21:31)
[2017-10-23 23:59] VITALS: PULSE 76; O2SAT 96
[2017-10-24] VITALS (7 sets, daily range): BP systolic 105–124; BP diastolic 61–75; PULSE 67–90; TEMP 36.5–36.9; O2SAT 93–96
[2017-10-24] MEDS: LEVALBUTEROL 1.25MG/0.5ML NEB INH SCH ×4 (02:29→20:16)
[2017-10-24] MEDS: IPRATROPIUM BROMIDE NEB SOLN 0.02% 2.5 ML VIAL INH SCH ×4 (02:29→20:16)
[2017-10-24] MEDS ORDERED: LEVALBUTEROL/IPRATROPIUM NEB INH SCH (03:00)
[2017-10-24] MEDS: VANCOMYCIN INJ 1,250 MG in SODIUM CHLORIDE 0.9% 250ML 250 ML IV SCH ×2 (05:18→16:27)
[2017-10-24] MEDS: HEPARIN SOD 5000 UNIT/0.5 ML CARP SQ SCH ×3 (06:03→21:20)
[2017-10-24 06:10] LABS: BASO % 0.1 %; BASO ABS # 0.01 K/uL (0-0.2); HEMATOCRIT 39.6 % (37-47); HEMOGLOBIN 13.1 g/dL (12.0-16.0); IG# 0.11 K/uL (0.00-0.02); LYMPH % 10.9 %; LYMPH ABS # 1.31 K/uL (1.2-3.4); MEAN CELL VOLUME 83.2 fL (80-100); MEAN CORPUSCULAR HEMOGLOBIN 27.5 pg (25-34); MEAN CORPUSCULAR HGB CONC 33.1 g/dl (32-36); MEAN PLATELET VOLUME 9.4 fL (7.4-10.4); MONO % 3.2 %; MONO ABS # 0.39 K/uL (0.11-0.59); NEUT % 84.9 %; NEUT ABS # 10.25 K/uL (1.4-6.5); PLATELET COUNT 309 K/uL (130-400); RED CELL DISTRIBUTION WIDTH CV 14.1 % (11.5-14.5); RED CELL DISTRIBUTION WIDTH SD 42.5 fL (36.4-46.3); WHITE BLOOD COUNT 12.07 K/uL (4.8-10.8)
[2017-10-24 07:03] LABS: ALBUMIN 2.9 gm/dl (3.4-5.0); CALCIUM 8.7 mg/dl (8.5-10.1); CREATININE 0.75 mg/dl (0.60-1.20); PHOSPHORUS 3.2 mg/dl (2.5-4.9); POTASSIUM 4.2 mmol/L (3.5-5.1); TOTAL PROTEIN 6.1 gm/dl (6.4-8.2)
[2017-10-24] MEDS: METHYLPREDNISOLONE IV 60 MG in SYRINGE 0 ML IV SCH ×2 (07:54→16:27)
[2017-10-24] MEDS: FLUTICASONE/SALMETEROL (ADVAIR) 500/50 INH 14 PUFF INH SCH ×2 (07:58→20:17)
[2017-10-24] MEDS: NICOTINE 7 MG/24 HR TDSY TD SCH (07:59)
[2017-10-24] MEDS: CHOLECALCIFEROL 1000 INTER.UNIT TAB PO SCH (07:59)
[2017-10-24] MEDS: PANTOprazole SOD 40 MG TAB PO SCH (07:59)
[2017-10-24] MEDS: ASPIRIN 325 MG ECTAB PO SCH (08:00)
[2017-10-24] MEDS: CARVEDILOL 3.125 MG TAB PO SCH ×2 (08:00→20:18)
[2017-10-24] MEDS: FUROSEMIDE 40 MG TAB PO SCH (08:00)
[2017-10-24] MEDS: GUAIFENESIN 600 MG TABCR PO SCH ×2 (08:15→20:22)
[2017-10-24] MEDS: POLYETHYLENE (MIRALAX) 17 GM PACK PO PRN (08:20)
--- NOTE | 2017-10-24 08:23 | Hospitalist Progress Note ---
Hospitalist Progress Note Date of Service Oct 24, 2017. (Amna Mixon PA-C) Subjective Pt evaluation today including: conversation w/ patient, physical exam, chart review, lab review, review of studies Pain: None PO Intake: Good The patient was seen and examined this morning. Pt reports doing better today. She is still coughing, with minimal white sputum production. She had night sweats but denies feeling like she had a fever, or chills. Pt has been ambulating in the room to the bathroom but still feels short of breath. She denies chest pain, heaviness or tightness currently. Pt was on 4 L while in the room, I decreased this to her normal supplemental O2 level to 2L and she had sats of 92%. ROS: 6 point ROS reviewed and otherwise negative. (Amna Mixon PA-C) Objective Vital Signs Date Time Temp Pulse Resp B/P (MAP) Pulse Ox O2 Delivery O2 Flow Rate FiO2 10/24/17 07:05 90 18 93 Nasal Cannula 2.0 10/24/17 04:00 Nasal Cannula 2.0 10/24/17 03:00 36.5 72 20 105/61 (76) 96 Nasal Cannula 2.0 10/24/17 02:29 84 18 96 Nasal Cannula 2.0 10/23/17 23:59 Nasal Cannula 2.0 10/23/17 23:59 76 16 96 Nasal Cannula 2.0 10/23/17 20:57 82 20 98 Nasal Cannula 2.0 10/23/17 20:00 Nasal Cannula 2.0 10/23/17 19:30 36.6 75 20 127/76 (93) 92 Nasal Cannula 2.0 10/23/17 16:46 101 22 97 Nasal Cannula 2.0 10/23/17 16:00 Nasal Cannula 2.0 10/23/17 15:16 36.7 72 22 128/79 94 Room Air (Amna Mixon PA-C) Physical Exam General Appearance: WD/WN, no apparent distress, + obese Eyes: PERRL, EOMI ENT: hearing grossly normal, pharynx normal, + pertinent finding (wearing breath right strip) Neck: supple, no JVD Respiratory/Chest: + pertinent finding (On 2 L via NC with sats= 92%, + exp wheeze throughout, breath sounds tight. ) Cardiovascular: regular rate, rhythm, no murmur Abdomen: normal bowel sounds, non tender, soft, + pertinent finding ( nondistended) Extremities: non-tender, no pedal edema, no calf tenderness Neurologic/Psychiatric: alert, normal mood/affect, oriented x 3 Skin: normal color, warm/dry (Amna Mixon PA-C) Laboratory Results Last 24 Hours Test 10/23/17 16:05 10/23/17 20:22 10/23/17 23:50 10/24/17 05:53 White Blood Count 18.02 K/uL 12.07 K/uL Red Blood Count 4.85 M/uL 4.76 M/uL Hemoglobin 13.5 g/dL 13.1 g/dL Hematocrit 40.1 % 39.6 % Mean Corpuscular Volume 82.7 fL 83.2 fL Mean Corpuscular Hemoglobin 27.8 pg 27.5 pg Mean Corpuscular Hemoglobin Concent 33.7 g/dl 33.1 g/dl Platelet Count 364 K/uL 309 K/uL Mean Platelet Volume 9.5 fL 9.4 fL Neutrophils (%) (Auto) 70.4 % 84.9 % Lymphocytes (%) (Auto) 18.8 % 10.9 % Monocytes (%) (Auto) 9.8 % 3.2 % Eosinophils (%) (Auto) 0.1 % 0.0 % Basophils (%) (Auto) 0.1 % 0.1 % Neutrophils # (Auto) 12.68 K/uL 10.25 K/uL Lymphocytes # (Auto) 3.39 K/uL 1.31 K/uL Monocytes # (Auto) 1.77 K/uL 0.39 K/uL Eosinophils # (Auto) 0.01 K/uL 0.00 K/uL Basophils # (Auto) 0.02 K/uL 0.01 K/uL RDW Standard Deviation 42.5 fL 42.5 fL RDW Coefficient of Variation 14.3 % 14.1 % Immature Granulocyte % (Auto) 0.8 % 0.9 % Immature Granulocyte # (Auto) 0.15 K/uL 0.11 K/uL Sodium Level 135 mmol/L 137 mmol/L Potassium Level 3.6 mmol/L 4.2 mmol/L Chloride Level 100 mmol/L 103 mmol/L Carbon Dioxide Level 29 mmol/L 29 mmol/L Anion Gap 6.0 mmol/L 5.0 mmol/L Blood Urea Nitrogen 31 mg/dl 26 mg/dl Creatinine 0.76 mg/dl 0.75 mg/dl Est Creatinine Clear Calc Drug Dose 73.1 ml/min 74.0 ml/min Estimated GFR () 90.8 92.3 Estimated GFR (Non- 78.4 79.6 BUN/Creatinine Ratio 40.4 34.3 Random Glucose 104 mg/dl 151 mg/dl Lactic Acid Level 1.0 mmol/L 2.1 mmol/L Calcium Level 9.0 mg/dl 8.7 mg/dl Prothrombin Time 9.9 SECONDS Prothromb Time International Ratio 0.9 Activated Partial Thromboplast Time 23.3 SECONDS Partial Thromboplastin Ratio 0.9 Urine Color YELLOW Urine Appearance CLEAR Urine pH 7.0 Urine Specific [place] 1.021 Urine Protein NEG Urine Glucose (UA) TRACE Urine Ketones NEG Urine Occult Blood NEG Urine Nitrite NEG Urine Bilirubin NEG Urine Urobilinogen NEG Urine Leukocyte Esterase NEG Phosphorus Level 3.2 mg/dl Magnesium Level 2.3 mg/dl Total Bilirubin 0.6 mg/dl Aspartate Amino Transf (AST/SGOT) 10 U/L Alanine Aminotransferase (ALT/SGPT) 30 U/L Alkaline Phosphatase 47 U/L Total Protein 6.1 gm/dl Albumin 2.9 gm/dl Globulin 3.2 gm/dl Albumin/Globulin Ratio 0.9 (Amna Mixon, MAX) Assessment and Plan This is a 72 yo F with PMHx of COPD, granulomatous lung dz, HTN, HLD, ischemic cardiomyopathy, hx of NC, GERD, anxiety, recent influenza A, hx of tobacco smoking 1 ppd x 60 years. The patient quit smoking last week upon previous admission from 10/15-10/18 for worsening shortness of breath and found to have Influenza A infection. Pt admitted from PCPs office for COPD exacerbation. COPD exacerbation Recent Influenza A Hx of tobacco abuse - Admit to tele - Solumedrol 60 mg Q8H to start now - Continue current solumedrol dosing with wheeze and tight breath sounds. Possibly reduce tomorrow. Failure of outpatient prednisone taper. - Ceftriaxone and vancomycin since pt was recently hospitalized x 24 more hours , then consider stopping vanc and changing ceftriaxone to PO. - Leukocytosis improving - CXR does not show infiltrate or consolidation - only emphysema - Home O2 at 2 L QHS is baseline. Currently still needing 2L during day. Maintain sats 88-92% - Duonebs Q4H and Q2H prn, continue combivent, spiriva for now, mucinex, magic mouth wash, incentive spirometry, O2 protocol. - Finished tamiflu /. Pt given flu shot here as she did not get it as an outpatient. - Follow BCx x 2, lactic acid, CBC and PRP, sputum culture - Recently quit smoking, pt requesting nicotine patch - Pt denies smoking cigarettes since previously being discharged. Counseling on cessation imperative upon discharge. HTN - Continue home meds with coreg 3.125 mg BID, lasix 40 mg daily HLD - Cont statin therapy with atorvastatin 40 mg daily GERD - Cont protonix - Pt with complaints of sore mouth and asking for magic mouthwash - likely from use of duonebs. No thrush seen in pharynx. DVT ppx: heparin subq, could transition to lovenox if PRP ok CODE STATUS: FULL CODE Disposition: From home and lives alone, PT/OT consults, discharge when medically stable, likely > 2 days. (Amna Mixon, MAX) PA Physician Supervision Note: I interviewed and examined the patient. Discussed with Amna Mixon PAC and agree with findings and plan as documented in the note. Any exceptions or clarifications are listed here: None Patient here with an influenza A and COPD exacerbation. She is followed chronically for a pulmonary nodule which is again demonstrated on her imaging studies and needs to be followed up. She says she feels about 60-70% better, we 'll continue treatment of both issues that impact her respiration Vitals are stable she has good oxygen saturations on 2 L of oxygen Lung exam shows poor air movement all air spicer no focal air loss or wheeze, cardiac exam appeared regular Continue the aggressive treatment for influenza and COPD exacerbation including nebulized medications, was placed on vancomycin and ceftriaxone for pulmonary coverage given recent hospitalization likely can de-escalate these medications as she is clinically improved to an oral medicine for discharge Documented By: Vasquez Kessler (Vasquez Kessler M.D.)
[2017-10-24] MEDS ORDERED: FLUTICASONE PROPIONATE NA SPR 16 GM BTL PRN (10:00)
[2017-10-24] MEDS ORDERED: NURSING VERBAL MED ORDER ONE (10:30)
--- NOTE | 2017-10-24 14:47 | Pharmacy Progress Note ---
Pharmacy Antibiotic Consult Date of Service: Oct 24, 2017. Pharmacy Dosing Scope Pharmacy is consulted to initiate Vancomycin IV dosing therapy, order appropriate labs and adjust drug dose/frequency. Subjective The patient is a 72 year old female admitted on Oct 23, 2017 at 14:45. Objective Height (Feet): 5 Height (Inches): 6.00 Weight (Kilograms): 84.000 Lab Results (24hrs): Test 10/23/17 16:05 10/23/17 20:22 10/23/17 23:50 10/24/17 05:53 White Blood Count 18.02 K/uL (4.8-10.8) 12.07 K/uL (4.8-10.8) Red Blood Count 4.85 M/uL (4.2-5.4) 4.76 M/uL (4.2-5.4) Hemoglobin 13.5 g/dL (12.0-16.0) 13.1 g/dL (12.0-16.0) Hematocrit 40.1 % (37-47) 39.6 % (37-47) Mean Corpuscular Volume 82.7 fL (80-100) 83.2 fL (80-100) Mean Corpuscular Hemoglobin 27.8 pg (25-34) 27.5 pg (25-34) Mean Corpuscular Hemoglobin Concent 33.7 g/dl (32-36) 33.1 g/dl (32-36) Platelet Count 364 K/uL (130-400) 309 K/uL (130-400) Mean Platelet Volume 9.5 fL (7.4-10.4) 9.4 fL (7.4-10.4) Neutrophils (%) (Auto) 70.4 % 84.9 % Lymphocytes (%) (Auto) 18.8 % 10.9 % Monocytes (%) (Auto) 9.8 % 3.2 % Eosinophils (%) (Auto) 0.1 % 0.0 % Basophils (%) (Auto) 0.1 % 0.1 % Neutrophils # (Auto) 12.68 K/uL (1.4-6.5) 10.25 K/uL (1.4-6.5) Lymphocytes # (Auto) 3.39 K/uL (1.2-3.4) 1.31 K/uL (1.2-3.4) Monocytes # (Auto) 1.77 K/uL (0.11-0.59) 0.39 K/uL (0.11-0.59) Eosinophils # (Auto) 0.01 K/uL (0-0.5) 0.00 K/uL (0-0.5) Basophils # (Auto) 0.02 K/uL (0-0.2) 0.01 K/uL (0-0.2) RDW Standard Deviation 42.5 fL (36.4-46.3) 42.5 fL (36.4-46.3) RDW Coefficient of Variation 14.3 % (11.5-14.5) 14.1 % (11.5-14.5) Immature Granulocyte % (Auto) 0.8 % 0.9 % Immature Granulocyte # (Auto) 0.15 K/uL (0.00-0.02) 0.11 K/uL (0.00-0.02) Sodium Level 135 mmol/L (136-145) 137 mmol/L (136-145) Potassium Level 3.6 mmol/L (3.5-5.1) 4.2 mmol/L (3.5-5.1) Chloride Level 100 mmol/L (98-107) 103 mmol/L (98-107) Carbon Dioxide Level 29 mmol/L (21-32) 29 mmol/L (21-32) Anion Gap 6.0 mmol/L (3-11) 5.0 mmol/L (3-11) Blood Urea Nitrogen 31 mg/dl (7-18) 26 mg/dl (7-18) Creatinine 0.76 mg/dl (0.60-1.20) 0.75 mg/dl (0.60-1.20) Est Creatinine Clear Calc Drug Dose 73.1 ml/min 74.0 ml/min Estimated GFR () 90.8 92.3 Estimated GFR (Non- 78.4 79.6 BUN/Creatinine Ratio 40.4 (10-20) 34.3 (10-20) Random Glucose 104 mg/dl (70-99) 151 mg/dl (70-99) Lactic Acid Level 1.0 mmol/L (0.4-2.0) 2.1 mmol/L (0.4-2.0) Calcium Level 9.0 mg/dl (8.5-10.1) 8.7 mg/dl (8.5-10.1) Prothrombin Time 9.9 SECONDS (9.0-12.0) Prothromb Time International Ratio 0.9 (0.9-1.1) Activated Partial Thromboplast Time 23.3 SECONDS (21.0-31.0) Partial Thromboplastin Ratio 0.9 Urine Color YELLOW Urine Appearance CLEAR (CLEAR) Urine pH 7.0 (4.5-7.5) Urine Specific [place] 1.021 (1.000-1.030) Urine Protein NEG (NEG) Urine Glucose (UA) TRACE (NEG) Urine Ketones NEG (NEG) Urine Occult Blood NEG (NEG) Urine Nitrite NEG (NEG) Urine Bilirubin NEG (NEG) Urine Urobilinogen NEG (NEG) Urine Leukocyte Esterase NEG (NEG) Phosphorus Level 3.2 mg/dl (2.5-4.9) Magnesium Level 2.3 mg/dl (1.8-2.4) Total Bilirubin 0.6 mg/dl (0.2-1) Aspartate Amino Transf (AST/SGOT) 10 U/L (15-37) Alanine Aminotransferase (ALT/SGPT) 30 U/L (12-78) Alkaline Phosphatase 47 U/L (45-117) Total Protein 6.1 gm/dl (6.4-8.2) Albumin 2.9 gm/dl (3.4-5.0) Globulin 3.2 gm/dl (2.5-4.0) Albumin/Globulin Ratio 0.9 (0.9-2) Assessment & Plan Assessment 72 year old female admitted for COPD exacerbation/possible pneumonia. * [facility] COPD, tobacco use-quit smoking 10/06 * Pt had recent hospital stay from 10/15-10/18 where she was treated for influenza A. Pt was also ordered azithromycin at discharge. * Blood and sputum cultures pending. * MRSA nasal swab negative. Provider would like to continue vanc for at least 48 hours. * Renal function at baseline Plan Vancomycin * Loading dose: 2000 mg (23mg/kg) IV X 1 dose then 1250 mg (15mg/kg) IV every 12 hours. * Goal trough for possible pneumonia: between 15 - 20 mcg/mL. * Trough level ordered for 10/25 @0330 Pharmacy will continue to follow and will adjust dose/frequency as necessary. Thank you
[2017-10-24] MEDS: DEXAMETHASONE CONC SOLN 3.75 MG, NYSTATIN SUSP 30 ML, DiphenhydrAMINE HCL SYRUP 300 MG,... PO PRN ×5 (16:32)
[2017-10-24] MEDS: CEFTRIAXONE SOD INJ 1 GM in DEXTROSE 5% ADD-VANTAGE 50ML 50 ML IV SCH (18:47)
[2017-10-24] MEDS: TRAZODONE HCL 50 MG TAB PO SCH (20:19)
[2017-10-24] MEDS: ATORVASTATIN 40 MG TAB PO SCH (20:21)
[2017-10-24] MEDS: GABAPENTIN 300 MG CAP PO SCH (20:21)
[2017-10-24] MEDS: TIOTROPIUM BROMIDE 5 PUFF/90 MCG INH INH SCH (20:26)
[2017-10-24] MEDS: CITALOPRAM 20 MG TAB PO SCH (22:29)
[2017-10-25] VITALS (9 sets, daily range): BP systolic 118–144; BP diastolic 69–79; PULSE 60–84; TEMP 36.6–36.9; O2SAT 93–97
[2017-10-25] MEDS: IPRATROPIUM BROMIDE NEB SOLN 0.02% 2.5 ML VIAL INH SCH ×4 (02:16→18:22)
[2017-10-25] MEDS: LEVALBUTEROL 1.25MG/0.5ML NEB INH SCH ×4 (02:16→18:22)
[2017-10-25] MEDS: DEXAMETHASONE CONC SOLN 3.75 MG, NYSTATIN SUSP 30 ML, DiphenhydrAMINE HCL SYRUP 300 MG,... PO PRN ×20 (02:22→19:31)
[2017-10-25] MEDS ORDERED: VANCOMYCIN TROUGH ONE (03:30)
[2017-10-25] MEDS ORDERED: METHYLPREDNISOLONE IV 40 MG in SYRINGE 0 ML IV SCH (04:00)
[2017-10-25] MEDS: HEPARIN SOD 5000 UNIT/0.5 ML CARP SQ SCH ×3 (06:07→21:20)
[2017-10-25] MEDS: CHOLECALCIFEROL 1000 INTER.UNIT TAB PO SCH (07:47)
[2017-10-25] MEDS: FLUTICASONE/SALMETEROL (ADVAIR) 500/50 INH 14 PUFF INH SCH ×2 (07:47→21:12)
[2017-10-25] MEDS: GUAIFENESIN 600 MG TABCR PO SCH ×2 (07:48→21:15)
[2017-10-25] MEDS: ASPIRIN 325 MG ECTAB PO SCH (07:48)
[2017-10-25] MEDS: CARVEDILOL 3.125 MG TAB PO SCH ×2 (07:48→21:13)
[2017-10-25] MEDS: PANTOprazole SOD 40 MG TAB PO SCH (07:48)
[2017-10-25] MEDS: BENZONATATE 100MG CAP PO PRN ×2 (07:49→21:20)
[2017-10-25] MEDS: FUROSEMIDE 40 MG TAB PO SCH (07:49)
[2017-10-25] MEDS: NICOTINE 7 MG/24 HR TDSY TD SCH (07:53)
[2017-10-25] MEDS: POLYETHYLENE (MIRALAX) 17 GM PACK PO PRN (07:57)
[2017-10-25 08:52] LABS: BASO % 0.1 %; BASO ABS # 0.01 K/uL (0-0.2); HEMATOCRIT 40.6 % (37-47); HEMOGLOBIN 13.7 g/dL (12.0-16.0); IG# 0.15 K/uL (0.00-0.02); LYMPH % 8.6 %; LYMPH ABS # 1.13 K/uL (1.2-3.4); MEAN CORPUSCULAR HGB CONC 33.7 g/dl (32-36); MEAN PLATELET VOLUME 9.7 fL (7.4-10.4); MONO % 3.1 %; MONO ABS # 0.41 K/uL (0.11-0.59); NEUT % 87.1 %; PLATELET COUNT 326 K/uL (130-400); RED CELL DISTRIBUTION WIDTH CV 14.2 % (11.5-14.5); RED CELL DISTRIBUTION WIDTH SD 42.3 fL (36.4-46.3)
[2017-10-25 09:29] LABS: CALCIUM 8.9 mg/dl (8.5-10.1); CREATININE 0.97 mg/dl (0.60-1.20); POTASSIUM 3.8 mmol/L (3.5-5.1)
--- NOTE | 2017-10-25 12:45 | Hospitalist Progress Note ---
Hospitalist Progress Note Date of Service Oct 25, 2017. (Amna Mixon PA-C) Subjective Pt evaluation today including: conversation w/ patient, physical exam, chart review, lab review, review of studies Pain: none PO Intake: good Voiding: no voiding problems The patient was seen and examined this morning. Pt reports feeling better today , her breathing is not as labored and she is less congested. Pt reports minor sputum production and that shes able to ambulate more without becoming short of breath to bathroom. She has ambulated around the halls once so far today. Pt had an episode of substernal chest tightness after solumedrol was administered. She reports this lasted for 5 min and then resolved. Denies any chest pain or radiation of pressure. She noticed her breathing improved overall after that 5 minutes. Pt denies palpitation, flutter, or headache. ROS: 6 point ROS was reviewed and otherwise negative. (Amna Mixon PA-C) Objective Vital Signs Date Time Temp Pulse Resp B/P (MAP) Pulse Ox O2 Delivery O2 Flow Rate FiO2 10/25/17 08:00 Nasal Cannula 2.0 10/25/17 07:51 36.6 66 18 144/70 (94) 96 2.0 10/25/17 07:02 68 18 93 Nasal Cannula 2.5 10/25/17 02:16 84 18 93 Nasal Cannula 2.5 10/25/17 00:45 36.8 72 20 134/69 (90) 97 Nasal Cannula 2.0 10/25/17 00:00 Nasal Cannula 2.0 10/24/17 20:16 90 18 93 Nasal Cannula 2.5 10/24/17 20:00 Nasal Cannula 2.0 10/24/17 16:00 Nasal Cannula 2.0 10/24/17 15:22 36.9 67 16 124/65 (84) 95 2.0 (Amna Mixon PA-C) Physical Exam Notes: General Appearance: WD/WN, no apparent distress, + obese, sitting up in bedside chair Eyes: PERRL, EOMI ENT: hearing grossly normal, pharynx normal, + pertinent finding (wearing breath right strip over nose) Neck: supple, no JVD Respiratory/Chest: + pertinent finding (On 2 L via NC with sats= 95%, aeration improving, breath sounds throughout but tight, no wheeze ) Cardiovascular: regular rate, rhythm, no murmur Abdomen: normal bowel sounds, soft, nontender with palpation. Extremities: non-tender, no pedal edema, no calf tenderness Neurologic/Psychiatric: alert, normal mood/affect, oriented x 3 Skin: normal color, warm/dry (Amna Mixon PA-C) Laboratory Results Last 24 Hours Test 10/25/17 08:36 White Blood Count 13.10 K/uL Red Blood Count 4.89 M/uL Hemoglobin 13.7 g/dL Hematocrit 40.6 % Mean Corpuscular Volume 83.0 fL Mean Corpuscular Hemoglobin 28.0 pg Mean Corpuscular Hemoglobin Concent 33.7 g/dl Platelet Count 326 K/uL Mean Platelet Volume 9.7 fL Neutrophils (%) (Auto) 87.1 % Lymphocytes (%) (Auto) 8.6 % Monocytes (%) (Auto) 3.1 % Eosinophils (%) (Auto) 0.0 % Basophils (%) (Auto) 0.1 % Neutrophils # (Auto) 11.40 K/uL Lymphocytes # (Auto) 1.13 K/uL Monocytes # (Auto) 0.41 K/uL Eosinophils # (Auto) 0.00 K/uL Basophils # (Auto) 0.01 K/uL RDW Standard Deviation 42.3 fL RDW Coefficient of Variation 14.2 % Immature Granulocyte % (Auto) 1.1 % Immature Granulocyte # (Auto) 0.15 K/uL Sodium Level 132 mmol/L Potassium Level 3.8 mmol/L Chloride Level 97 mmol/L Carbon Dioxide Level 29 mmol/L Anion Gap 6.0 mmol/L Blood Urea Nitrogen 28 mg/dl Creatinine 0.97 mg/dl Est Creatinine Clear Calc Drug Dose 57.2 ml/min Estimated GFR () 67.6 Estimated GFR (Non- 58.3 BUN/Creatinine Ratio 28.4 Random Glucose 183 mg/dl Calcium Level 8.9 mg/dl (Amna Mixon PA-C) Assessment and Plan This is a 72 yo F with PMHx of COPD, granulomatous lung dz, HTN, HLD, ischemic cardiomyopathy, hx of [place], GERD, anxiety, recent influenza A, hx of tobacco smoking 1 ppd x 60 years. The patient quit smoking last week upon previous admission from 10/15-10/18 for worsening shortness of breath and found to have Influenza A infection. Pt admitted from PCPs office for COPD exacerbation. COPD exacerbation Recent Influenza A Hx of tobacco abuse - Solumedrol 40 mg Q12H - Failure of outpatient prednisone taper. - will need extended steroid taper at time of discharge. - Will stop vanc and switch to ceftriaxone to PO keflex (day 3 of abx) - Leukocytosis improving - CXR does not show infiltrate or consolidation - only emphysema - Home O2 at 2 L QHS is baseline. Currently still needing 2L during day. Maintain sats 88-92% - Duonebs Q4H and Q2H prn, continue combivent, spiriva for now, mucinex, magic mouth wash, incentive spirometry, O2 protocol. - Finished tamiflu 10/22. Pt given flu shot here as she did not get it as an outpatient. - Follow BCx x 2, lactic acid, CBC and PRP, sputum culture - Recently quit smoking, pt requesting nicotine patch - Pt denies smoking cigarettes since previously being discharged. Counseling on cessation imperative upon discharge. HTN - Continue home meds with coreg 3.125 mg BID, lasix 40 mg daily HLD - Cont statin therapy with atorvastatin 40 mg daily GERD - Cont protonix - Pt with complaints of sore mouth and asking for magic mouthwash - likely from use of duonebs. No thrush seen in pharynx. DVT ppx: heparin subq CODE STATUS: FULL CODE Disposition: From home and lives alone, PT/OT consults, discharge when medically stable, likely > 2 days. (Amna Mixon, TERIRC) PA Physician Supervision Note: I interviewed and examined the patient. Discussed with Amna Mixon PAC and agree with findings and plan as documented in the note. Any exceptions or clarifications are listed here: None Patient continues to recover from an influenza A and respiratory failure associated with the underlying history of COPD . She does have a history of chronic diastolic heart failure and some mild dementia. She feels that the last time she was in the facility she went home to early. She still has some decreased breath sounds and poor aeration at the bases on examination Vitals have remained stable but her air movement is poor as mentioned Acute on chronic respiratory failure so she with influenza A infection on top of COPD, influenza was treated we continue with supportive care nebulized medication and physical therapy evaluation to determine the patient's fitness to return home Documented By: Vasquez Kessler (Vasquez Kessler M.D.)
[2017-10-25] MEDS: CEPHALEXIN MONOHYDRATE 250 MG CAP PO SCH ×2 (16:41→21:13)
[2017-10-25] MEDS: TIOTROPIUM BROMIDE 5 PUFF/90 MCG INH INH SCH (21:13)
[2017-10-25] MEDS: CITALOPRAM 20 MG TAB PO SCH (21:14)
[2017-10-25] MEDS: TRAZODONE HCL 50 MG TAB PO SCH (21:15)
[2017-10-25] MEDS: GABAPENTIN 300 MG CAP PO SCH (21:15)
[2017-10-25] MEDS: ATORVASTATIN 40 MG TAB PO SCH (21:15)
[2017-10-26] VITALS (8 sets, daily range): BP systolic 108–134; BP diastolic 59–81; PULSE 67–88; TEMP 36.6–36.8; O2SAT 93–98
[2017-10-26] MEDS: LEVALBUTEROL 1.25MG/0.5ML NEB INH SCH ×4 (01:46→19:18)
[2017-10-26] MEDS: IPRATROPIUM BROMIDE NEB SOLN 0.02% 2.5 ML VIAL INH SCH ×4 (01:46→19:18)
[2017-10-26] MEDS: HEPARIN SOD 5000 UNIT/0.5 ML CARP SQ SCH ×3 (06:18→20:34)
[2017-10-26 07:15] LABS: EOS % 0.2 %; EOS ABS # 0.02 K/uL (0-0.5); HEMATOCRIT 40.5 % (37-47); HEMOGLOBIN 13.4 g/dL (12.0-16.0); IG# 0.11 K/uL (0.00-0.02); LYMPH % 22.7 %; LYMPH ABS # 2.82 K/uL (1.2-3.4); MEAN CORPUSCULAR HEMOGLOBIN 27.5 pg (25-34); MEAN CORPUSCULAR HGB CONC 33.1 g/dl (32-36); MEAN PLATELET VOLUME 9.2 fL (7.4-10.4); MONO % 8.2 %; MONO ABS # 1.02 K/uL (0.11-0.59); NEUT ABS # 8.44 K/uL (1.4-6.5); PLATELET COUNT 298 K/uL (130-400); RED CELL DISTRIBUTION WIDTH CV 14.2 % (11.5-14.5); RED CELL DISTRIBUTION WIDTH SD 42.3 fL (36.4-46.3); WHITE BLOOD COUNT 12.41 K/uL (4.8-10.8)
[2017-10-26 07:49] LABS: CALCIUM 8.7 mg/dl (8.5-10.1); CREATININE 0.83 mg/dl (0.60-1.20); POTASSIUM 4.1 mmol/L (3.5-5.1)
[2017-10-26] MEDS: FLUTICASONE/SALMETEROL (ADVAIR) 500/50 INH 14 PUFF INH SCH ×2 (08:01→20:28)
[2017-10-26] MEDS: CHOLECALCIFEROL 1000 INTER.UNIT TAB PO SCH (08:02)
[2017-10-26] MEDS: CARVEDILOL 3.125 MG TAB PO SCH ×2 (08:02→20:31)
[2017-10-26] MEDS: ASPIRIN 325 MG ECTAB PO SCH (08:02)
[2017-10-26] MEDS: PANTOprazole SOD 40 MG TAB PO SCH (08:02)
[2017-10-26] MEDS: CEPHALEXIN MONOHYDRATE 250 MG CAP PO SCH ×4 (08:02→20:29)
[2017-10-26] MEDS: FUROSEMIDE 40 MG TAB PO SCH (08:02)
[2017-10-26] MEDS: NICOTINE 7 MG/24 HR TDSY TD SCH (08:03)
[2017-10-26] MEDS: POLYETHYLENE (MIRALAX) 17 GM PACK PO PRN (08:03)
[2017-10-26] MEDS: GUAIFENESIN 600 MG TABCR PO SCH ×2 (08:03→20:33)
[2017-10-26] MEDS: DEXAMETHASONE CONC SOLN 3.75 MG, NYSTATIN SUSP 30 ML, DiphenhydrAMINE HCL SYRUP 300 MG,... PO PRN ×5 (08:04)
[2017-10-26] MEDS ORDERED: BISACODYL 10 MG SUPP PR PRN (10:15)
[2017-10-26] MEDS: MAGNESIUM OXIDE 400 MG TAB PO SCH (11:26)
--- NOTE | 2017-10-26 13:01 | Hospitalist Progress Note ---
Hospitalist Progress Note Date of Service Oct 26, 2017. (Amna Mixon PA-C) Subjective Pt evaluation today including: conversation w/ patient, physical exam, chart review, lab review, review of studies Pain: None PO Intake: Good Voiding: no voiding problems The patient was seen and examined this morning. Pt reports her breathing is slowly improving. She reports a less productive cough at this point. She does feels some chest tightness but this is also improving. Pt remains on her home 3L of O2. Her main complaint today is no BM x 4 days now. She has been using miralax, prune juice and drinking plenty of fluids. Pt is agreeable to a dulcolax suppository today. She denies any abdominal pain and is passing gas. ROS: 6 point ROS reviewed and otherwise negative. (Amna Mixon PA-C) Objective Vital Signs Date Time Temp Pulse Resp B/P (MAP) Pulse Ox O2 Delivery O2 Flow Rate FiO2 10/26/17 10:03 Nasal Cannula 2.0 10/26/17 07:35 77 18 96 Nasal Cannula 2.5 10/26/17 07:29 36.6 67 22 134/81 (98) 98 Nasal Cannula 2.5 10/26/17 01:47 70 18 96 Nasal Cannula 2.5 10/26/17 00:00 Nasal Cannula 2.0 10/25/17 22:59 36.6 67 18 125/78 (94) 95 Nasal Cannula 2.0 10/25/17 21:10 63 118/79 (92) 10/25/17 18:22 74 18 97 Nasal Cannula 2.5 10/25/17 18:00 Nasal Cannula 2.0 10/25/17 16:02 36.9 71 20 130/78 (95) 96 2.0 10/25/17 14:21 60 18 95 Nasal Cannula 2.5 (Amna Mixon PA-C) Physical Exam Notes: General Appearance: WD/WN, no apparent distress, + obese Eyes: PERRL, EOMI ENT: hearing grossly normal, pharynx normal, + pertinent finding (wearing breath right strip) Neck: supple, no JVD Respiratory/Chest: + pertinent finding (On 2 L via NC with sats= 92%, + exp wheeze throughout, prolonged exp phase, no crackles or rales.) Cardiovascular: regular rate, rhythm, no murmur Abdomen: normal bowel sounds, non tender, soft, + pertinent finding ( nondistended) Extremities: non-tender, no pedal edema, no calf tenderness Neurologic/Psychiatric: alert, normal mood/affect, oriented x 3 Skin: normal color, warm/dry (Amna Mixon PA-C) Laboratory Results Last 24 Hours Test 10/26/17 07:03 White Blood Count 12.41 K/uL Red Blood Count 4.88 M/uL Hemoglobin 13.4 g/dL Hematocrit 40.5 % Mean Corpuscular Volume 83.0 fL Mean Corpuscular Hemoglobin 27.5 pg Mean Corpuscular Hemoglobin Concent 33.1 g/dl Platelet Count 298 K/uL Mean Platelet Volume 9.2 fL Neutrophils (%) (Auto) 68.0 % Lymphocytes (%) (Auto) 22.7 % Monocytes (%) (Auto) 8.2 % Eosinophils (%) (Auto) 0.2 % Basophils (%) (Auto) 0.0 % Neutrophils # (Auto) 8.44 K/uL Lymphocytes # (Auto) 2.82 K/uL Monocytes # (Auto) 1.02 K/uL Eosinophils # (Auto) 0.02 K/uL Basophils # (Auto) 0.00 K/uL RDW Standard Deviation 42.3 fL RDW Coefficient of Variation 14.2 % Immature Granulocyte % (Auto) 0.9 % Immature Granulocyte # (Auto) 0.11 K/uL Sodium Level 133 mmol/L Potassium Level 4.1 mmol/L Chloride Level 97 mmol/L Carbon Dioxide Level 32 mmol/L Anion Gap 4.0 mmol/L Blood Urea Nitrogen 26 mg/dl Creatinine 0.83 mg/dl Est Creatinine Clear Calc Drug Dose 66.9 ml/min Estimated GFR () 81.7 Estimated GFR (Non- 70.4 BUN/Creatinine Ratio 30.9 Random Glucose 90 mg/dl Calcium Level 8.7 mg/dl (Amna Mixon PA-C) Assessment and Plan This is a 72 yo F with PMHx of COPD, granulomatous lung dz, HTN, HLD, ischemic cardiomyopathy, hx of [place], GERD, anxiety, recent influenza A, hx of tobacco smoking 1 ppd x 60 years. The patient quit smoking last week upon previous admission from 10/15-10/18 for worsening shortness of breath and found to have Influenza A infection. Pt admitted from PCPs office for COPD exacerbation. COPD exacerbation Recent Influenza A Hx of tobacco abuse - Solumedrol 40 mg Q12H - had 1 day of 40 mg prednisone, but breathing still tight. Give total of 60 mg Prednisone today and on 10/27 - then slowly taper back down. Failure of outpatient prednisone taper. - will need extended steroid taper at time of discharge. - Will stop vanc and switch to ceftriaxone to PO keflex (day 4 of abx) - Leukocytosis improving - CXR does not show infiltrate or consolidation - only emphysema - Home O2 at 2 L QHS is baseline. Maintain sats 88-92% - Duonebs Q4H and Q2H prn, continue combivent, spiriva for now, mucinex, magic mouth wash, incentive spirometry, O2 protocol. - Finished tamiflu 10/22. Pt given flu shot here as she did not get it as an outpatient. - Follow BCx x 2, lactic acid, CBC and PRP, sputum culture - Recently quit smoking, pt requesting nicotine patch - Pt denies smoking cigarettes since previously being discharged. Counseling on cessation imperative upon discharge. HTN - Continue home meds with coreg 3.125 mg BID, lasix 40 mg daily HLD - Cont statin therapy with atorvastatin 40 mg daily GERD - Cont protonix - Pt with complaints of sore mouth and asking for magic mouthwash - likely from use of duonebs. No thrush seen in pharynx. DVT ppx: heparin subq CODE STATUS: FULL CODE Disposition: From home and lives alone, PT/OT consults, discharge when medically stable, likely in 1-2 days pending response. (Amna Mixon, MAX) PA Physician Supervision Note: I interviewed and examined the patient. Discussed with Amna Mixon PAC and agree with findings and plan as documented in the note. Any exceptions or clarifications are listed here: None Patient remained short of breath she continues of issues with constipation she' s had slow recovery after her readmission from her initial diagnosis of influenza. Vitals are reviewed and stable lungs show decreased breath sounds and prolonged expiratory phase consistent with possible COPD Continue supportive care respiratory distress exhalation of laxatives help reduce her discomfort reevaluation in one day Documented By: Vasquez Kessler (Vasquez Kessler M.D.)
[2017-10-26] MEDS: TIOTROPIUM BROMIDE 5 PUFF/90 MCG INH INH SCH (20:28)
[2017-10-26] MEDS: TRAZODONE HCL 50 MG TAB PO SCH (20:31)
[2017-10-26] MEDS: ATORVASTATIN 40 MG TAB PO SCH (20:32)
[2017-10-26] MEDS: CITALOPRAM 20 MG TAB PO SCH (20:32)
[2017-10-26] MEDS: GABAPENTIN 300 MG CAP PO SCH (20:34)
[2017-10-27] VITALS (7 sets, daily range): BP systolic 102–118; BP diastolic 60–78; PULSE 65–80; TEMP 36.6–36.9; O2SAT 93–98
[2017-10-27] MEDS: LEVALBUTEROL 1.25MG/0.5ML NEB INH SCH ×4 (01:45→19:25)
[2017-10-27] MEDS: IPRATROPIUM BROMIDE NEB SOLN 0.02% 2.5 ML VIAL INH SCH ×4 (01:45→19:25)
[2017-10-27] MEDS: HEPARIN SOD 5000 UNIT/0.5 ML CARP SQ SCH ×3 (06:00→21:55)
[2017-10-27] MEDS: MAGNESIUM OXIDE 400 MG TAB PO SCH (07:46)
[2017-10-27] MEDS: CHOLECALCIFEROL 1000 INTER.UNIT TAB PO SCH (07:47)
[2017-10-27] MEDS: PANTOprazole SOD 40 MG TAB PO SCH (07:47)
[2017-10-27] MEDS: CEPHALEXIN MONOHYDRATE 250 MG CAP PO SCH ×2 (07:47→12:42)
[2017-10-27] MEDS: FUROSEMIDE 40 MG TAB PO SCH (07:47)
[2017-10-27] MEDS: NICOTINE 7 MG/24 HR TDSY TD SCH (07:47)
[2017-10-27] MEDS: FLUTICASONE/SALMETEROL (ADVAIR) 500/50 INH 14 PUFF INH SCH ×2 (07:48→20:14)
[2017-10-27] MEDS: BENZONATATE 100MG CAP PO PRN (07:48)
[2017-10-27] MEDS: CARVEDILOL 3.125 MG TAB PO SCH ×2 (07:48→20:15)
[2017-10-27] MEDS: GUAIFENESIN 600 MG TABCR PO SCH ×2 (07:48→20:17)
[2017-10-27] MEDS: ASPIRIN 325 MG ECTAB PO SCH (07:48)
[2017-10-27] MEDS ORDERED: MAGNESIUM SULFATE 1GM / D5W 1 GM in PREMIXED IN D5W 100 ML IV ONE (13:00)
--- NOTE | 2017-10-27 16:36 | Progress Note ---
Subjective Date of Service: Oct 27, 2017. Subjective pt does not feel well today again, remains with shortness of breath, did have bowel movement with laxatives Review of Systems Constitutional: No fever, No chills, No sweats Respiratory: + shortness of breath, + dyspnea on exertion, No cough Cardiac: No chest pain, No PND, No edema Abdomen: No pain, No nausea, No vomiting Psychiatric: No depression symptoms, No anhedonism Objective Vital Signs Date Time Temp Pulse Resp B/P (MAP) Pulse Ox O2 Delivery O2 Flow Rate FiO2 10/27/17 15:57 36.9 80 20 115/78 (90) 93 Room Air 10/27/17 15:39 Nasal Cannula 2.0 10/27/17 14:39 70 18 98 Nasal Cannula 2.5 10/27/17 08:34 Nasal Cannula 2.0 10/27/17 07:55 36.6 65 20 118/73 (88) 95 10/27/17 07:40 70 18 98 Nasal Cannula 2.5 10/27/17 01:45 67 18 97 Nasal Cannula 2.5 10/27/17 00:00 Nasal Cannula 2.0 10/26/17 23:27 36.6 76 20 108/59 (75) 95 2.0 10/26/17 20:30 75 128/75 (92) 10/26/17 19:25 70 18 96 Nasal Cannula 2.5 10/26/17 18:03 Nasal Cannula 2.0 Physical Exam General Appearance: WD/WN, + mild distress Respiratory/Chest: chest non-tender, + decreased breath sounds, + accessory muscle use, + rhonchi Cardiovascular: regular rate, rhythm, no murmur Abdomen: normal bowel sounds, non tender, soft Extremities: no pedal edema, no calf tenderness Neurologic/Psychiatric: alert, oriented x 3 Assessment and Plan 72 yo F with PMHx of COPD, granulomatous lung dz,who presented with SOB after influenza a infection, h/o HTN, HLD, ischemic cardiomyopathy, hx of [place], GERD, anxiety,, hx of tobacco smoking 1 ppd x 60 years. COPD exacerbation Recent Influenza A Hx of tobacco abuse tapering 60 mg Prednisone today and on 10/27 - - CXR does not show infiltrate or consolidation - only emphysema - Home O2 at 2 L QHS is baseline. Maintain sats 88-92% - Duonebs Q4H and Q2H prn, continue combivent, spiriva for now, mucinex, magic mouth wash, incentive spirometry, O2 protocol. - Finished tamiflu 10/22. Pt given flu shot here - Recently quit smoking, pt requesting nicotine patch - HTN coreg 3.125 mg BID, lasix 40 mg daily HLD statin therapy with atorvastatin 40 mg daily GERD protonix DVT ppx: heparin subq CODE STATUS: FULL CODE
[2017-10-27] MEDS: ACETAMINOPHEN 325 MG TAB PO PRN (20:15)
[2017-10-27] MEDS: TRAZODONE HCL 50 MG TAB PO SCH (20:16)
[2017-10-27] MEDS: CITALOPRAM 20 MG TAB PO SCH (20:16)
[2017-10-27] MEDS: TIOTROPIUM BROMIDE 5 PUFF/90 MCG INH INH SCH (20:16)
[2017-10-27] MEDS: GABAPENTIN 300 MG CAP PO SCH (20:17)
[2017-10-27] MEDS: ATORVASTATIN 40 MG TAB PO SCH (20:17)
[2017-10-28] VITALS (11 sets, daily range): BP systolic 100–119; BP diastolic 63–75; PULSE 49–81; TEMP 36.1–36.9; O2SAT 93–97
[2017-10-28] MEDS: LEVALBUTEROL 1.25MG/0.5ML NEB INH SCH ×4 (01:43→19:19)
[2017-10-28] MEDS: IPRATROPIUM BROMIDE NEB SOLN 0.02% 2.5 ML VIAL INH SCH ×4 (01:43→19:19)
[2017-10-28 05:38] LABS: HEMATOCRIT 38.4 % (37-47); HEMOGLOBIN 12.9 g/dL (12.0-16.0); MEAN CELL VOLUME 82.4 fL (80-100); MEAN CORPUSCULAR HEMOGLOBIN 27.7 pg (25-34); MEAN CORPUSCULAR HGB CONC 33.6 g/dl (32-36); MEAN PLATELET VOLUME 9.2 fL (7.4-10.4); PLATELET COUNT 268 K/uL (130-400); RED CELL DISTRIBUTION WIDTH CV 14.5 % (11.5-14.5); WHITE BLOOD COUNT 13.52 K/uL (4.8-10.8)
[2017-10-28 06:06] LABS: CALCIUM 8.6 mg/dl (8.5-10.1); CREATININE 0.89 mg/dl (0.60-1.20); POTASSIUM 3.9 mmol/L (3.5-5.1)
[2017-10-28] MEDS: HEPARIN SOD 5000 UNIT/0.5 ML CARP SQ SCH ×3 (06:13→21:47)
[2017-10-28] MEDS: DEXAMETHASONE CONC SOLN 3.75 MG, NYSTATIN SUSP 30 ML, DiphenhydrAMINE HCL SYRUP 300 MG,... PO PRN ×5 (06:17)
[2017-10-28] MEDS: FLUTICASONE/SALMETEROL (ADVAIR) 500/50 INH 14 PUFF INH SCH ×2 (07:59→19:58)
[2017-10-28] MEDS: BENZONATATE 100MG CAP PO PRN (07:59)
[2017-10-28] MEDS: CHOLECALCIFEROL 1000 INTER.UNIT TAB PO SCH (07:59)
[2017-10-28] MEDS: FUROSEMIDE 40 MG TAB PO SCH (07:59)
[2017-10-28] MEDS: CARVEDILOL 3.125 MG TAB PO SCH ×2 (08:00→20:01)
[2017-10-28] MEDS: PANTOprazole SOD 40 MG TAB PO SCH (08:00)
[2017-10-28] MEDS: NICOTINE 7 MG/24 HR TDSY TD SCH (08:00)
[2017-10-28] MEDS: GUAIFENESIN 600 MG TABCR PO SCH ×2 (08:00→19:59)
[2017-10-28] MEDS: ASPIRIN 325 MG ECTAB PO SCH (08:01)
[2017-10-28] MEDS: MAGNESIUM OXIDE 400 MG TAB PO SCH (08:01)
--- NOTE | 2017-10-28 08:23 | Hospitalist Progress Note ---
Hospitalist Progress Note Date of Service Oct 28, 2017. (Amna Mixon PA-C) Subjective Pt evaluation today including: conversation w/ patient, physical exam, chart review, lab review, review of studies Pain: None PO Intake: Good Voiding: no voiding problems The patient was seen and examined this morning. Pt reports doing ok today. She was supposed to get up and walk w/ PT but was told that her BP dropped low and that they would come back later. The patient admits to feeling lightheaded and dizzy whenever she did stand up, but that this resolved quickly once sitting down. On review BP was 97/60s with standing, and back to her baseline SBP of low 100s with sitting. She reports feeling her breathing is feeling much better overall. Pt was encouraged to get up and ambulate. She denies any other acute complaints. ROS: 6 point ROS reviewed and otherwise negative. (Amna Mixon PA-C) Objective Vital Signs Date Time Temp Pulse Resp B/P (MAP) Pulse Ox O2 Delivery O2 Flow Rate FiO2 10/28/17 07:34 36.1 66 22 107/72 (84) 95 Nasal Cannula 2.0 10/28/17 07:23 81 18 96 Nasal Cannula 2.5 10/28/17 01:43 76 18 93 Nasal Cannula 2.5 10/28/17 00:00 Nasal Cannula 2.0 10/27/17 23:10 36.7 66 22 102/60 (74) 95 Nasal Cannula 2.0 10/27/17 20:00 Nasal Cannula 2.0 10/27/17 19:25 76 18 95 Nasal Cannula 2.5 10/27/17 15:57 36.9 80 20 115/78 (90) 93 Room Air 10/27/17 15:39 Nasal Cannula 2.0 10/27/17 14:39 70 18 98 Nasal Cannula 2.5 10/27/17 08:34 Nasal Cannula 2.0 (Amna Mixon PA-C) Physical Exam Notes: General Appearance: WD/WN, no apparent distress, + obese Eyes: PERRL, EOMI ENT: hearing grossly normal, pharynx normal, + pertinent finding (wearing breath right strip) Neck: supple, no JVD Respiratory/Chest: + pertinent finding (On 2 L via NC, mild wheezing in the RLL and RML, clear in the left. Prolonged exp phase, no crackles or rales.) Cardiovascular: regular rate, rhythm, no murmur Abdomen: normal bowel sounds, non tender, soft, + pertinent finding ( nondistended) Extremities: non-tender, no pedal edema, no calf tenderness Neurologic/Psychiatric: alert, normal mood/affect, oriented x 3 Skin: normal color, warm/dry (Amna Mixon PA-C) Laboratory Results Last 24 Hours Test 10/28/17 05:21 White Blood Count 13.52 K/uL Red Blood Count 4.66 M/uL Hemoglobin 12.9 g/dL Hematocrit 38.4 % Mean Corpuscular Volume 82.4 fL Mean Corpuscular Hemoglobin 27.7 pg Mean Corpuscular Hemoglobin Concent 33.6 g/dl RDW Standard Deviation 43.0 fL RDW Coefficient of Variation 14.5 % Platelet Count 268 K/uL Mean Platelet Volume 9.2 fL Sodium Level 134 mmol/L Potassium Level 3.9 mmol/L Chloride Level 100 mmol/L Carbon Dioxide Level 28 mmol/L Anion Gap 6.0 mmol/L Blood Urea Nitrogen 26 mg/dl Creatinine 0.89 mg/dl Est Creatinine Clear Calc Drug Dose 62.4 ml/min Estimated GFR () 75.0 Estimated GFR (Non- 64.7 BUN/Creatinine Ratio 29.0 Random Glucose 96 mg/dl Calcium Level 8.6 mg/dl Magnesium Level 2.5 mg/dl (Amna Mixon PA-C) Assessment and Plan This is a 72 yo F with PMHx of COPD, granulomatous lung dz, HTN, HLD, ischemic cardiomyopathy, hx of [place], GERD, anxiety, recent influenza A, hx of tobacco smoking 1 ppd x 60 years. The patient quit smoking last week upon previous admission from 10/15-10/18 for worsening shortness of breath and found to have Influenza A infection. Pt admitted from PCPs office for COPD exacerbation. COPD exacerbation Recent Influenza A Hx of tobacco abuse - Taper down prednisone 60 mg day #4 - Drop to 50 mg starting tomorrow Failure of outpatient prednisone taper. - will need extended steroid taper at time of discharge. - Will stop vanc and switch to ceftriaxone to PO keflex (day 6 of abx) - Leukocytosis improved - CXR does not show infiltrate or consolidation - only emphysema - Home O2 at 2 L QHS is baseline. Maintain sats 88-92% - Duonebs Q4H and Q2H prn, continue combivent, spiriva for now, mucinex, magic mouth wash, incentive spirometry, O2 protocol. - Finished tamiflu 10/22. Pt given flu shot here as she did not get it as an outpatient. - Blood culture neg, sputum in process - Recently quit smoking, pt requesting nicotine patch - Pt denies smoking cigarettes since previously being discharged. Counseling on cessation imperative upon discharge. HTN - Continue home meds with coreg 3.125 mg BID, lasix 40 mg daily - Pt had BP of lowest 97/high 60s this morning with standing, likely deconditioned from long hospital stay. PT/OT on board. Encouraged ambulation and out of bed as much as possible. HLD - Cont statin therapy with atorvastatin 40 mg daily GERD - Cont protonix - Cont magic mouthwash - likely from use of duonebs. Mouth pain improved. DVT ppx: heparin subq CODE STATUS: FULL CODE Disposition: From home and lives alone, PT/OT consults, discharge when medically stable - possibly tomorrow (Amna Mixon, PADemarC) PA Physician Supervision Note: I interviewed and examined the patient. Discussed with Amna Mixon PAC and agree with findings and plan as documented in the note. Any exceptions or clarifications are listed here: None Patient is slow to improve she's had some challenges with lower blood pressure today continues to feel constipated and has had just very slow improvement in her respiratory status Her cardiac exam is bradycardic her lungs actually have good air movement no wheezes no focal air loss Influenza A and COPD exacerbation with acute hypoxic on chronic respiratory failure slowly improving continuing nebulized medications and steroid taper Bradycardias undetermined we will attempt to reduce her Coreg dose if needed [facility] OT continues with concern for the patient requiring increased oxygen and perhaps needing some subacute rehabilitation Documented By: Vasquez Kessler (Vasquez Kessler M.D.)
[2017-10-28] MEDS: LEVOFLOXACIN 500 MG TAB PO SCH (11:39)
[2017-10-28] MEDS: POLYETHYLENE (MIRALAX) 17 GM PACK PO PRN (15:50)
[2017-10-28] MEDS ORDERED: MAGNESIUM CITRATE 296 ML/BTL PO ONE (16:30)
[2017-10-28] MEDS: CITALOPRAM 20 MG TAB PO SCH (19:59)
[2017-10-28] MEDS: GABAPENTIN 300 MG CAP PO SCH (20:00)
[2017-10-28] MEDS: ATORVASTATIN 40 MG TAB PO SCH (20:00)
[2017-10-28] MEDS: TRAZODONE HCL 50 MG TAB PO SCH (20:00)
[2017-10-28] MEDS: TIOTROPIUM BROMIDE 5 PUFF/90 MCG INH INH SCH (20:01)
[2017-10-29] MEDS: BENZONATATE 100MG CAP PO PRN
[2017-10-29] MEDS: ACETAMINOPHEN 325 MG TAB PO PRN (00:01)
[2017-10-29 01:40] VITALS: PULSE 74; O2SAT 95
[2017-10-29] MEDS: LEVALBUTEROL 1.25MG/0.5ML NEB INH SCH ×2 (01:40→07:22)
[2017-10-29] MEDS: IPRATROPIUM BROMIDE NEB SOLN 0.02% 2.5 ML VIAL INH SCH ×2 (01:40→07:22)
[2017-10-29] MEDS: HEPARIN SOD 5000 UNIT/0.5 ML CARP SQ SCH ×2 (05:55→12:39)
[2017-10-29 07:16] VITALS: BP 117/77; PULSE 61; TEMP 36.4; O2SAT 95
[2017-10-29 07:22] VITALS: PULSE 65; O2SAT 97
[2017-10-29] MEDS: FLUTICASONE/SALMETEROL (ADVAIR) 500/50 INH 14 PUFF INH SCH (07:46)
[2017-10-29] MEDS: PANTOprazole SOD 40 MG TAB PO SCH (07:48)
[2017-10-29] MEDS: GUAIFENESIN 600 MG TABCR PO SCH (07:48)
[2017-10-29] MEDS: ASPIRIN 325 MG ECTAB PO SCH (07:48)
[2017-10-29] MEDS: CHOLECALCIFEROL 1000 INTER.UNIT TAB PO SCH (07:48)
[2017-10-29] MEDS: CARVEDILOL 3.125 MG TAB PO SCH (07:48)
[2017-10-29] MEDS: FUROSEMIDE 40 MG TAB PO SCH (07:48)
[2017-10-29] MEDS: MAGNESIUM OXIDE 400 MG TAB PO SCH (07:49)
[2017-10-29] MEDS: NICOTINE 7 MG/24 HR TDSY TD SCH (07:52)
[2017-10-29 08:00] VITALS: O2SAT 97
[2017-10-29] MEDS ORDERED: BISACODYL 5 MG TABEC PO ONE (08:15)
[2017-10-29] MEDS: LEVOFLOXACIN 500 MG TAB PO SCH (11:01)
[2017-10-29] MEDS ORDERED: PRED10TA PO (11:24)
[2017-10-29] MEDS ORDERED: LVQ500 PO (11:24)
[2017-10-29] MEDS ORDERED: MAGN1TAB19 PO (11:24)
--- NOTE | 2017-10-29 11:31 | Discharge Instructions ---
Discharge Instructions Date of Service Oct 29, 2017. Admission Reason for Admission: Copd Exacerbation Discharge Discharge Diagnosis / Problem: COPD exacerbation, pneumonia Discharge Goals Goal(s): Decrease discomfort, Improve function, Increase independence, Improve disease control Activity Recommendations Activity Limitations: resume your previous activity Lifting Limitations: no more than 25 pounds, gradually increase as tolerated Exercise/Sports Limitations: none, as tolerated Shower/Bathe: no limitations Driving or Machine Use: resume 1 day after discharge . Instructions / Follow-Up Instructions / Follow-Up You were admitted to [facility] with COPD exacerbation and superimpose pneumonia. During your stay here you were treated with supportive care with supplemental oxygen, steroids, antibiotics and breathing treatments. Imaging studies which were completed include CXR, and were abnormal showing pneumonia. Medications: Continue taking levaquin x 3 more days, this will complete a total of 10 days of antibiotics. Continue prednisone taper as described below: Take 50 mg (5tabs) x 2 days 40 mg (4 tabs) x 2 days, 30 mg (3 tabs) x 2 days 20 mg (2 tabs) x 2 days 10 mg (1 tab) x 2 days then stop. Finish on 11/08 Appointments: Follow up with your Primary Care Provider within 1 week. Follow up with pulmonology, Dr. Wilkerson within 1-2 weeks. Please discuss pulmonary rehab with at this appointment and request to be set up for this. Current Hospital Diet Patient's current hospital diet: AHA Diet (Heart Healthy) Discharge Diet Recommended Diet: AHA Diet (Heart Healthy) Pending Studies Studies pending at discharge: no Medical Emergencies . Who to Call and When: Medical Emergencies: If at any time you feel your situation is an emergency, please call 911 immediately. . Non-Emergent Contact Non-Emergency issues call your: Primary Care Provider, Testing Coordinator Call Non-Emergent contact if: you have a fever, temperature is above 100.5, your pain is not controlled, your pain is worsening, your pain is unusual for you, your pain is concerning you, you have any medication questions other concerns with your health. Call 911 or go directly to the Emergency Department if you experience any of the following: Chest pain, chest tightness, shortness of breath, abdominal pain , lightheadedness, dizziness, gastrointestinal bleeding, or have any other concerns regarding your health. . Past History Medical & Surgical History: (1) Pneumonia (2) COPD (chronic obstructive pulmonary disease) . "Provider Documentation" section prepared by Jennifer Mixon. . VTE Core Measure Inpt VTE Proph given/why not?: Unfractionated heparin SQ, SCD's
[2017-10-29 12:39] VITALS: BP 117/77; PULSE 65; TEMP 36.4; O2SAT 97
--- NOTE | 2017-10-29 13:09 | Discharge Summary ---
Discharge Summary Date of Service Oct 29, 2017. Discharge Summary Admission Date: Oct 23, 2017 at 14:45 Discharge Date: Oct 29, 2017 Discharge Disposition: Home Principal Diagnosis: COPD exacerbation Problems/Secondary Diagnoses: Medical Problems: (1) Anxiety (2) COPD (chronic obstructive pulmonary disease) (3) GERD (gastroesophageal reflux disease) (4) Heart attack (5) HLD (hyperlipidemia) (6) HTN (hypertension) (7) Hx of myocardial infarction (8) Influenza A (9) Ischemic cardiomyopathy (10) Pneumonia Procedures: CHEST 2 VIEWS ROUTINE 10/23/17 IMPRESSION: 1. Findings consistent with emphysema. No superimposed infiltrate. 2. Right upper lobe nodule better evaluated on prior CT. Primary bronchogenic neoplasm cannot be excluded. Medication Reconciliation New Medications: Levofloxacin (Levofloxacin) 500 Mg Tab 500 MG PO DAILY@11 for 3 Days, #3 TAB Changed Medications: Magnesium Oxide (Mg Supplement (Magnesium Oxide) 400 Mg Tab 400 MG PO DAILY for 30 Days, #30 TAB (Changed from: Magnesium Oxide (Mg Supplement (Magnesium) Unknown Strength Cap 1 Cap PO QAM) Prednisone Tab (Prednisone) 10 Mg Tab 10 MG PO DAILY for 10 Days, #30 TAB (Changed from: 36; 11; 60 mg x1 day, 50 mg x 2 days, 40 mg x 2 days, 30 mg x 2 days, 20 mg x 2 days, 10 mg x 2 days) 50 mg x2 day, 40 mg x 2 days, 30 mg x 2 days, 20 mg x 2 days, 10 mg x 2 days. Finish on 11/08. Continued Medications: Albuterol Sulfate (Albuterol Sulfate) 1.25 Mg/3 Ml Neb 1 VIAL NEB Q4 PRN for Shortness of Breath for 5 Days, #75 ML Aspirin (Aspirin) 325 Mg Tab 325 MG PO QAM Atorvastatin (Lipitor) 40 Mg Tab 40 MG PO QPM, TAB B-Complex Vitamins (Vitamin B Complex) 1 Tab Tab 1 TAB PO QAM Benzonatate (Benzonatate) 100 Mg Cap 100 MG PO TID PRN for Cough for 5 Days, #15 CAP Carvedilol (Coreg) 3.125 Mg Tab 3.125 MG PO BID Cholecalciferol (Vitamin D3) 1,000 Unit Tab 1000 UNITS PO QAM Citalopram Hydrobromide (Citalopram Hydrobromide) 20 Mg Tab 20 MG PO HS Fluticasone Prop/Salmeterol (Advair Diskus 500/50 60 Dose) 1 Ea Aerp 1 PUFF INH BID, INHALER Furosemide (Lasix) 40 Mg Tab 40 MG PO QAM, TAB Gabapentin (Neurontin) 300 Mg Cap 300 MG PO HS, CAP Oyster Shell (Calcium) 500 Mg Tab 1 TAB PO QAM Pantoprazole (Protonix) 40 Mg Tab 40 MG PO QAM, #30 TAB Tiotropium [place] (Spiriva Handihaler) 30 Puff/540 Mcg Aerp 1 CAP INH HS, INHALER Trazodone Hcl (Trazodone) 50 Mg Tab 50 MG PO HS, TAB Discontinued Medications: Azithromycin (Azithromycin) 250 Mg Tab 250 MG PO QAM for 1 Day, #1 TAB Oseltamivir Phosphate (Tamiflu) 75 Mg Cap 75 MG PO BID for 2 Days, #4 CAP Discharge Exam The patient was seen and examined this morning. Pt reports doing well today, she reports her breathing is better overall and that she is just a little tired due to not sleeping well here. She has been ambulating about the room without lightheadedness or dizziness, and oral intake has improved. Her BP remains stable. She still has some sputum production which is thick and yellow, but pt reports she is now bringing it up and feels better with a cough. She denies any fever sweats or chills. Pt denies chest tightness, heaviness or pain. ROS: 10 point ROS reviewed and otherwise neg. PE: General Appearance: WD/WN, no apparent distress, + obese Eyes: PERRL, EOMI ENT: hearing grossly normal, pharynx normal, + pertinent finding (wearing breath right strip) Neck: supple, no JVD Respiratory/Chest: + pertinent finding (On 2 L via NC, lungs clear throughout, very mild wheeze in RLL. Prolonged exp phase, no crackles or rales.) Cardiovascular: regular rate, rhythm, no murmur Abdomen: normal bowel sounds, non tender, soft, + pertinent finding ( nondistended) Extremities: non-tender, no pedal edema, no calf tenderness Neurologic/Psychiatric: alert, normal mood/affect, oriented x 3 Skin: normal color, warm/dry Hospital Course History of Present Illness Source: patient This is a 72 yo F with PMHx of COPD, granulomatous lung dz, HTN, HLD, ischemic cardiomyopathy, hx of [place], GERD, anxiety, recent influenza A, hx of tobacco smoking 1 ppd x 60 years. The patient quit smoking last week upon previous admission from 10/15-10/18 for worsening shortness of breath and found to have Influenza A infection. The patient was seen for her routine follow up appt with PCP today. She completed tamiflu course yesterday, and is currently finishing a prednisone taper. Today she took her second day of 30 mg, and was scheduled for another week of prednisone. She reports since going home her symptoms have not really improved. Her main complaint is that she has been waking up in the middle of the night at least twice gasping for air, her pulse ox has been as low as 85% on her 2L O2 which she wears at baseline, and requires a nebulizer treatment. The patient was recommended for inpatient admission for likely COPD exacerbation. Physical Exam General Appearance: WD/WN, no apparent distress, + obese Head: normocephalic, atraumatic Eyes: normal inspection, EOMI ENT: hearing grossly normal, + pertinent finding (no pharyngeal exudate or erythema, MMM) Neck: supple, no JVD Respiratory/Chest: + pertinent finding (on 2 L via RA, diminished breath sounds throughout, + expiratory wheeze throughout and worse in the R base.) Cardiovascular: regular rate, rhythm, no murmur, normal peripheral pulses Abdomen/GI: normal bowel sounds, non tender, soft, + pertinent finding ( slightly distended) Back: normal inspection Extremities/Musculoskelatal: no calf tenderness, no pedal edema Neurologic/Psych: alert, normal mood/affect, oriented x 3 Skin: normal color, warm/dry Hospital Course: This is a 72 yo F with PMHx of COPD, granulomatous lung dz, HTN, HLD, ischemic cardiomyopathy, hx of [place], GERD, anxiety, recent influenza A, hx of tobacco smoking 1 ppd x 60 years. The patient quit smoking last week upon previous admission from 10/15-10/18 for worsening shortness of breath and found to have Influenza A infection. Pt admitted from PCPs office for COPD exacerbation. COPD exacerbation Recent Influenza A Hx of tobacco abuse - Taper down prednisone 50 mg starting 10/29 - finish taper as follows: 50 mg x2 day, 40 mg x 2 days, 30 mg x 2 days, 20 mg x 2 days, 10 mg x 2 days. Finish on . - Will stop vanc and switch to ceftriaxone to PO abx - finish. Continue levaquin x 3 more day to complete a 10 d course total with still having some productive sputum - Leukocytosis improved - CXR does not show infiltrate or consolidation - only emphysema - Home O2 at 2 L QHS is baseline. Maintain sats 88-92% - Duonebs Q4H and Q2H prn, continue combivent, spiriva for now, mucinex, magic mouth wash, incentive spirometry, O2 protocol. - Finished tamiflu 10/22. Pt given flu shot here as she did not get it as an outpatient. - Blood culture neg, sputum in process - Recently quit smoking, pt requesting nicotine patch - Pt denies smoking cigarettes since previously being discharged. Counseling again today and pt has no desire to start smoking again. HTN - Continue home meds with coreg 3.125 mg BID, lasix 40 mg daily - BP improved tody - PT/OT on board. Encouraged ambulation and out of bed as much as possible. HLD - Cont statin therapy with atorvastatin 40 mg daily GERD - Cont protonix - Cont magic mouthwash - likely from use of duonebs. Mouth pain improved. DVT ppx: heparin subq CODE STATUS: FULL CODE Disposition: From home and lives alone, PT/OT consults, discharge home today i personally examined pt and verified all mayo points karri Mixon PAC feeling better wants to go home vitals noted nad breathing unlaobred lungs quiet but clear no r/r/w good effort no accessory muscles COPD exacerbation - just had flu, COPD exac. was improving. re-exac - ?due to extreme cold of the last week? -improvign again stable for home, otherwise as above Total Time Spent: Greater than 30 minutes This includes examination of the patient, discharge planning, medication reconciliation, and communication with other providers. Discharge Instructions Please refer to the electronic Patient Visit Report (Discharge Instructions) for additional information. Follow-Up Follow up with your Primary Care Provider within 1 week. Follow up with pulmonology within [address] Wilkerson, recommend pulmonary rehab. Additional Copies To Danna Winston M.D.
== END 2017-10-29 13:29 | disposition home health service (06) | DRG 190 ==
LOC: C.MSICU 14:45 → ENRESERV 10-24 09:06 → C.4E 10-24 10:32
PROVIDERS: ADMIT Internal Medicine; ATTEND Family Medicine
DX: J44.1 Chronic obstructive pulmonary disease with (acute) exacerbation (principal); J96.21 Acute and chronic respiratory failure with hypoxia; J11.1 Influenza due to unidentified influenza virus with other respiratory manifestations; J44.0 Chronic obstructive pulmonary disease with (acute) lower respiratory infection; R00.1 Bradycardia, unspecified; K21.9 Gastro-esophageal reflux disease without esophagitis; E78.5 Hyperlipidemia, unspecified; I10 Essential (primary) hypertension; I25.2 Old myocardial infarction; I25.5 Ischemic cardiomyopathy; Z79.52 Long term (current) use of systemic steroids; Z79.82 Long term (current) use of aspirin; Z79.899 Other long term (current) drug therapy; Z87.891 Personal history of nicotine dependence

== ENCOUNTER → 2017-12-20 | Outpatient (CLI) | payer OTHER ==
[~2017-12-20] MED LIST changes: -AZIT-57 PO; +LVQ500 PO; +MAGN1TAB19 PO; -MAGN500C PO; -TMF75 PO
[2017-12-20 16:38] LABS: ALBUMIN 3.9 gm/dl (3.4-5.0); ALT/SGPT 24 U/L (12-78); BLOOD UREA NITROGEN 14 mg/dl (7-18); CALCIUM 9.4 mg/dl (8.5-10.1); CARBON DIOXIDE 32 mmol/L (21-32); CREATININE 0.85 mg/dl (0.60-1.20); GLUCOSE 100 mg/dl (70-99); POTASSIUM 3.4 mmol/L (3.5-5.1); SODIUM 138 mmol/L (136-145)
[2017-12-20 16:42] LABS: ALKALINE PHOSPHATASE 61 U/L (45-117); AST/SGOT 15 U/L (15-37); TOTAL PROTEIN 6.9 gm/dl (6.4-8.2)
== END | disposition home or self-care (01) ==
LOC: C.LABBFT 15:00
PROVIDERS: ATTEND Internal Medicine
DX: Z00.00 Encounter for general adult medical examination without abnormal findings (principal); E78.5 Hyperlipidemia, unspecified; Z86.79 Personal history of other diseases of the circulatory system; I25.10 Atherosclerotic heart disease of native coronary artery without angina pectoris

== ENCOUNTER 2018-01-04 13:28 | Emergency (ER) | payer OTHER ==
[~2018-01-04] VITALS: Ht 167.6 cm; Wt 88.7 kg
[2018-01-04 13:34] VITALS: TEMP 36.6; Ht 167.6 cm; Wt 88.7 kg
[2018-01-04] MEDS ORDERED: ACETAMINOPHEN 500 MG TAB PO STA (14:04)
--- NOTE | 2018-01-04 15:02 | DIAGNOSTIC IMAGING REPORT ---
L HAND MIN 3 VIEWS ROUTINE CLINICAL HISTORY: fall; struck headm neck and LUE on ground trauma. Pain. COMPARISON: None. DISCUSSION: Cortical fracture base proximal phalanx fifth finger. No evidence for dislocation. Mild degenerative change of the remaining osseous structures. Osteopenia. There is no evidence for soft tissue swelling. IMPRESSION: Nondisplaced cortical fracture base proximal phalanx fifth finger. The above report was generated using voice recognition software. It may contain grammatical, syntax or spelling errors. Electronically signed by: Johnny Barnes M.D. 01/04/2018 3:01 PM Dictated Date/Time: 01/04/2018 3:00 PM
--- NOTE | 2018-01-04 15:03 | DIAGNOSTIC IMAGING REPORT ---
L WRIST MIN 3 VIEWS ROUTINE CLINICAL HISTORY: same trauma. Pain. COMPARISON: None. DISCUSSION: Moderate degenerative change. Fracture base proximal phalanx fifth finger. The remaining osseous structures show no additional acute bony abnormality. There is no evidence for soft tissue swelling. IMPRESSION: Fracture base proximal phalanx fifth finger. Moderate degenerative change. No additional acute bony abnormality. The above report was generated using voice recognition software. It may contain grammatical, syntax or spelling errors. Electronically signed by: Johnny Barnes M.D. 01/04/2018 3:02 PM Dictated Date/Time: 01/04/2018 3:01 PM
--- NOTE | 2018-01-04 15:04 | DIAGNOSTIC IMAGING REPORT ---
L SHOULDER MIN 2 VIEWS ROUTINE CLINICAL HISTORY: same trauma. Pain. COMPARISON: None. DISCUSSION: The bones and joint spaces appear intact. There is no evidence of fracture, dislocation or bony disease. There is no evidence for soft tissue swelling. IMPRESSION: Negative study. The above report was generated using voice recognition software. It may contain grammatical, syntax or spelling errors. Electronically signed by: Johnny Barnes M.D. 01/04/2018 3:03 PM Dictated Date/Time: 01/04/2018 3:02 PM
[2018-01-04] MEDS ORDERED: POTA10CA28 PO (15:07)
[2018-01-04] MEDS ORDERED: MAGN1TAB41 PO (15:07)
--- NOTE | 2018-01-04 16:04 | DIAGNOSTIC IMAGING REPORT ---
HEAD WITHOUT CONTRAST (CT) CT DOSE: HISTORY: Mental status change. Trauma. same TECHNIQUE: Multiaxial CT images of the head were performed without the use of intravenous contrast. A dose lowering technique was utilized adhering to the principles of ALARA. Comparison: None. Findings: The paranasal sinuses and mastoid air cells are clear. The calvarium and skull base are intact. The ventricles and sulci are within normal limits. There is no mass, hematoma, midline shift, or acute infarct. Moderate chronic small vessel change. No acute intracranial abnormality. Impression: No acute intracranial abnormality. Age-related chronic small vessel change. The above report was generated using voice recognition software. It may contain grammatical, syntax or spelling errors. Electronically signed by: Johnny Barnes M.D. 01/04/2018 4:02 PM Dictated Date/Time: 01/04/2018 4:01 PM
--- NOTE | 2018-01-04 16:06 | DIAGNOSTIC IMAGING REPORT ---
CERVICAL SPINE W/O CT DOSE: 943.56 mGy.cm HISTORY: Trauma. Pain. same TECHNIQUE: Multiaxial CT images of the cervical spine were performed and reformatted in the sagittal and coronal plane without the use of contrast. A dose lowering technique was utilized adhering to the principles of ALARA. COMPARISON: None. FINDINGS: No fractures. No subluxation. Prevertebral soft tissues and the C1-C2 interval are intact. No pneumothorax. IMPRESSION: No fractures within the cervical spine. Moderate degenerative change throughout. The above report was generated using voice recognition software. It may contain grammatical, syntax or spelling errors. Electronically signed by: Johnny Barnes M.D. 01/04/2018 4:04 PM Dictated Date/Time: 01/04/2018 4:02 PM
[2018-01-04 16:40] VITALS: BP 131/91; PULSE 74; O2SAT 97
--- NOTE | 2018-01-05 01:17 | EMERGENCY ROOM VISIT NOTE ---
ED Visit Note First contact with patient: 13:33 I reviewed the patient's past medical history, medications, and visit nursing notes. I discussed the case with the physician compliance assistant, examined the patient, and agree with the findings and plan as documented in the physician assistants note.
--- NOTE | 2018-01-05 10:32 | EMERGENCY ROOM VISIT NOTE ---
ED Visit Note First contact with patient: 13:33 Chief Complaint: Fall. History of Present Illness: Ms. Christian is a 72-year-old white female who ambulates into the ED following a fall complaining of headache, neck pain, left shoulder pain, left wrist pain and left hand pain. Patient reports approximately 2 hours before she arrived in the emergency department. She reports she was doing yard work. She reports she was standing in her yard which is a slight downgrading. She lost her footing and fell to the ground. Before the fall she reports she was not having any lightheadedness or dizziness. She reports that the time of the fall she did strike her head on the ground but had no loss of consciousness. Since the fall she has been having a headache but denies all other signs of head injury. Currently she is complaining of a mild global headache. She describes this as a pressure-like sensation. She rates this discomfort 2/10. Pain is nonradiating. She has not identified any alleviating factors related to the pain. She has not taken medication for pain prior to arrival at the hospital. Associated with her headache she does report she is having left-sided cervical spine pain. This is located over the C6-C7 area. She describes this as an achiness sensation. She does not rate this discomfort. Her pain is nonradiating. Her pain worsens with palpation. She has not identified any alleviating factors related to. Additionally she complains of left shoulder pain. This is located over the superior aspect of the humeral head. She does not describe this discomfort. She rates this discomfort 5/10. The pain is nonradiating. Her pain worsens minimally of palpation to the radial head. Additionally she complains of left elbow pain over the lateral aspect of the elbow at the joint line. Pain is nonradiating. Pain worsens with the last few degrees of extension. Lastly she is complaining of left hand pain over the fifth MCP joint. This is the worst of her pains. She rates her discomfort 5/10. Her pain is nonradiating. Her pain worsens with all movements of the MCP joint and palpation. She has not identified any alleviating factors related to the pain. Currently she denies dizziness, lightheadedness, abnormal neurological symptoms , upper extremity weakness/numbness/tingling, thoracic and lumbar back pain, chest pain, shortness of breath, abdominal pain, nausea, vomiting. Review of Systems: As noted above in history of present illness. 8 body systems were reviewed and found to be negative as noted above. Past Medical History: Heart attack, COPD, hyperlipidemia, hypertension, ischemia cardiomyopathy, pneumonia, GERD and pneumonia. Current Medications: Medications Dose Route/Sig Max Daily Dose Days Date Category Micro-K Ext Rel (Potassium Chloride) Unknown Strength Capcr 1 Cap PO DAILY 01/04/18 Reported Magnesium (Magnesium Oxide) 400 Mg Tab 400 Mg PO QAM 01/04/18 Reported Albuterol Sulfate 1.25 Mg/3 Ml Neb 1 Vial NEB Q4 PRN 5 07/19/17 Reported Vitamin B Complex (B-Complex Vitamins) 1 Tab Tab 1 Tab PO QAM 07/19/17 Reported Advair Diskus 500/50 60 Dose (Fluticasone Prop/Salmeterol) 1 Ea Aerp 1 Puff INH BID 07/19/17 Reported Vitamin D3 (Cholecalciferol) 1,000 Unit Tab 1,000 Units PO QAM 07/19/17 Reported Trazodone (Trazodone HCl) 50 Mg Tab 50 Mg PO HS 07/19/17 Reported Spiriva Handihaler (Tiotropium [place]) 30 Puff/540 Mcg Aerp 1 Cap INH HS 07/19/17 Reported Protonix (Pantoprazole Sodium) 40 Mg Tab 40 Mg PO QAM 07/19/17 Reported Neurontin (Gabapentin) 300 Mg Cap 300 Mg PO HS 07/19/17 Reported Lasix (Furosemide) 40 Mg Tab 40 Mg PO QAM 07/19/17 Reported Citalopram Hydrobromide 20 Mg Tab 20 Mg PO HS 07/19/17 Reported Coreg (Carvedilol) 3.125 Mg Tab 3.125 Mg PO BID 07/19/17 Reported Calcium (Oyster Shell) 500 Mg Tab 1 Tab PO QAM 07/19/17 Reported Lipitor (Atorvastatin Calcium) 40 Mg Tab 40 Mg PO QPM 07/19/17 Reported Aspirin 325 Mg Tab 325 Mg PO QAM 07/19/17 Reported Allergies to Medications: Diazepam. Social History: Patient is not employed; she feels safe in her home environment ; she denies tobacco and alcohol use. Physical Examination: Vital Signs: Date Time Temp Pulse Resp B/P (MAP) Pulse Ox O2 Delivery O2 Flow Rate FiO2 01/04/18 16:40 74 16 131/91 97 01/04/18 15:36 76 16 138/94 96 Room Air 01/04/18 13:34 36.6 86 18 142/87 94 Room Air GENERAL: 72-year-old female in mild to moderate distress due to pain, nontoxic- appearing, afebrile and hemodynamically stable. NEUROLOGICAL: Awake, alert and oriented to person, place and time. Answering questions appropriately and following commands. Normal gait. Good hand eye coordination. Romberg test negative. Pronator drift test negative. Good short -term and long-term recall. Cranial nerves II through XII grossly intact. SKIN: Warm, dry and pink. No soft tissue eruptions or trauma noted. HEENT: Atraumatic and normocephalic. Skull: No bony deformity, bony crepitus, swelling or ecchymosis. No raccoons eyes or ortega signs. No drainage from the ears of the nostril; no hemotympanum. Face: No bony tenderness, swelling or ecchymosis. PERRLA. EOMI without nystagmus. No malocclusion. No intraoral trauma. Airway is patent. Speech is normal and clear. Speech normal. No lymphadenopathy. Trachea midline. No jugular venous distention. BACK: Mild tenderness over the vertebral prominence of C7. No bony deformity, bony crepitus, swelling or ecchymosis. No tenderness throughout the thoracic and lumbar spine. Full range of motion in all movements of the spine cervical spine. THORAX: Lungs sounds are clear to auscultation and equal bilaterally with symmetrical chest wall. No wheezing, rales or rhonchi. No crepitus, tenderness , subcutaneous air or deformities noted. HEART: Regular rate and rhythm. No gallops, rubs or murmurs are appreciated. ABDOMEN: Flat, soft and nontender. Positive bowel sounds in all quadrants. No guarding, rigidity or organomegaly. LEFT UPPER EXTREMITY: Mild tenderness to the superior aspect of the humeral head without bony deformity, bony crepitus, swelling or ecchymosis. No tenderness throughout the clavicle and scapula. No tenderness over the acromioclavicular joint. Full range of motion of the shoulder, elbow, forearm, wrist and hand. Distal pulses and sensations intact. 4/5 muscle strength in all movements of the shoulder, elbow, forearm, wrist and hand. Additionally there is mild tenderness over the distal radius without bony deformity or crepitus. No tenderness over the distal ulna, carpals, anatomical snuffbox or hand. EXTREMITIES: Moves all extremities well on command and with purpose. All distal neurovascular statuses are intact and equal bilaterally. No calf tenderness or cords. ED Course: Patient is assessed as noted above. Patient's medication list was reviewed. Patient was given 1 g of Tylenol by mouth for pain and ice for pain and swelling. Head CT: Was reviewed by myself and read by the radiologist and shows no acute intracranial abnormalities or skull fractures. Also noted was age-related chronic small vessel changes. Cervical Spine CT: Was reviewed by myself and read by the radiologist and shows no acute fractures or subluxations. Also noted was moderate degenerative changes throughout the cervical spine. Left Shoulder X-Rays: Were read by myself and the radiologist showing no acute fractures or dislocations. Left Wrist X-Rays: Were read by myself and the radiologist showing a fracture at the base of the fifth proximal phalanx. Also noted was moderate degenerative changes throughout the hand. Left Hand X-Rays: Were read by myself and the radiologist showing a nondisplaced cortical fracture at the base of the fifth proximal phalanx. Radiologist also noted moderate degenerative changes throughout. Patient's fracture was stabilized with a metal finger splint. Patient's case was reviewed with Dr. Burton; he independently assessed the patient we agreed on diagnostic approach, treatment, disposition and plan. Patient was educated about today's findings and instructed on his treatment plan ; he verbalized understanding and agreement with this plan. Clinical Impression: Fall. Left fifth proximal phalanx fracture. Headache, possible mild closed head injury. Neck pain. Left shoulder pain. Left wrist pain. Disposition: Patient discharged home in stable condition; prior to departure she was reassessed and subjectively reported she was feeling better and rated her overall discomfort 5/10. Plan: Pain control was discussed with the patient including alternating ibuprofen and acetaminophen, ice and splint use. Patient was educated on signs of head injury. Patient was encouraged to follow-up with orthopedics for definitive care and treatment of her fracture. Patient is encouraged to follow-up with her PCP for her fall and other injuries today. Patient was encouraged to return to the ED for any signs of head injury, uncontrolled pain or any new/concerning symptoms.
== END 2018-01-04 16:40 | disposition home or self-care (01) ==
LOC: C.EDB 13:29 → C.EDD 16:40
DX: S62.617A Displaced fracture of proximal phalanx of left little finger, initial encounter for closed fracture (principal); R51 Headache; M54.2 Cervicalgia; M25.512 Pain in left shoulder; M25.532 Pain in left wrist; W19.XXXA Unspecified fall, initial encounter; J44.9 Chronic obstructive pulmonary disease, unspecified; E78.5 Hyperlipidemia, unspecified

== ENCOUNTER → 2018-02-13 | Outpatient (CLI) | payer OTHER ==
[~2018-02-13] MED LIST changes: +ASPECOTC PO; -ASPI325T45 PO; -BENZ100C7 PO; -LVQ500 PO; -MAGN1TAB19 PO; +MAGN1TAB41 PO; +POTA10CA28 PO; -PRED10TA PO
--- NOTE | 2018-02-13 14:40 | DIAGNOSTIC IMAGING REPORT ---
L KNEE 3 VIEWS CLINICAL HISTORY: M25.562 Left knee pain [id number] COMPARISON: None. DISCUSSION: The bones are mildly osteopenic. No acute fractures or dislocations are visualized. 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 IMPRESSION: 1. No acute fractures 2. Degenerative changes of the patellofemoral joint with subchondral cystic change. 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 02/13/2018 2:39 PM Dictated Date/Time: 02/13/2018 2:38 PM
== END | disposition home or self-care (01) ==
LOC: C.RAD1850 14:25
PROVIDERS: ATTEND Physician Assistant
DX: M25.562 Pain in left knee (principal); M17.12 Unilateral primary osteoarthritis, left knee; M85.40 Solitary bone cyst, unspecified site

== ENCOUNTER 2019-05-10 10:24 | Inpatient (IN) ==
[2019-05-10] MEDS ORDERED: ALBUT/IPRATROP 3MG/0.5MG NEB 3 ML VIAL NEB STA ×2 (10:34→12:53)
[2019-05-10] MEDS ORDERED: SODIUM CHLORIDE 0.9% 500 ML IV SCH (10:45)
--- NOTE | 2019-05-10 10:48 | XRay Report ---
XR chest 1V portable CLINICAL HISTORY: Dyspnea dyspnea COMPARISON STUDY: 10/15/2017 FINDINGS: The bones soft tissues and hemidiaphragms are normal. The cardiomediastinal silhouette is n ormal. The lungs are clear. The pulmonary vasculature is normal. IMPRESSION: Negative chest. The above report was generated using voice recognition software. It may contain grammatical, syntax or spelling errors. Electronically signed by: Johnny Barnes M.D. 05/10/2019 10:47 AM
[2019-05-10 11:16] LABS: Appearance Urine Clear (Clear); Bacteria Urine Automated Negative (Negative); Bilirubin Urine Negative (Negative); Blood Urine Trace (Negative); Cast Urine Automated 0 /lpf (0-5); Color Urine Yellow; Glucose Urine UA Negative (Negative); Ketones Urine Negative (Negative); Leukocyte Esterase Urine Negative (Negative); Nitrite Urine Negative (Negative); Protein Urine Negative (Negative); RBC Urine Automated 0-4 /hpf (0-4); Specific Gravity Urine 1.011 (1.000-1.030); Urobilinogen Urine Negative (Negative); WBC Urine Automated 0 /hpf (0-5); pH Urine 6.5 (4.5-7.5)
[2019-05-10 11:31] LABS: Basophils # (auto) 0.11 K/uL (0-0.2); Basophils % (auto) 1.4 %; Eosinophils % (auto) 7.4 %; Hematocrit (blood only) 42.4 % (37-47); Hemoglobin 13.8 g/dL (12.0-16.0); Immature Granulocytes # (auto) 0.01 K/uL (0.00-0.02); Immature Granulocytes % (auto) 0.1 %; Lymphocytes # (auto) 1.81 K/uL (1.2-3.4); Lymphocytes % (auto) 22.3 %; Mean Corpuscular Hgb Conc 32.5 g/dL (32-36); Mean Corpuscular Volume 83.6 fL (80-100); Mean Platelet Volume 10.7 fL (7.4-10.4); Monocytes # (auto) 0.43 K/uL (0.11-0.59); Monocytes % (auto) 5.3 %; Neutrophils # (auto) 5.16 K/uL (1.4-6.5); Neutrophils % (auto) 63.5 %; Platelet Count 289 K/uL (130-400); RDW Coefficient of Variation 14.2 % (11.5-14.5); Red Blood Count 5.07 M/uL (4.2-5.4); White Blood Count 8.12 K/uL (4.8-10.8)
[2019-05-10 11:36] LABS: HCO3 VBG 33 mmol/L; PCO2 VBG 52 mmHg (38-50); PO2 VBG 35 mmHg; pH VBG 7.42 (7.36-7.41)
[2019-05-10 11:40] LABS: Oxygen Saturation VBG < 60.0 %
[2019-05-10 11:48] LABS: Alanine Aminotransferase 32 U/L (12-78); Albumin Level 4.2 gm/dl (3.4-5.0); Aspartate Aminotransferase 23 U/L (15-37); Blood Urea Nitrogen 15 mg/dl (7-18); Calcium 9.5 mg/dl (8.5-10.1); Carbon Dioxide 34 mmol/L (21-32); Chloride 102 mmol/L (98-107); Est GFR (African American) 69.3; Est GFR (Non-African American) 59.8; Glucose 100 mg/dl (70-99); Magnesium 2.3 mg/dl (1.8-2.4); Potassium 3.7 mmol/L (3.5-5.1); Sodium 143 mmol/L (136-145)
[2019-05-10 11:53] LABS: Albumin Globulin Ratio 1.4 (0.9-2); Alkaline Phosphatase 92 U/L (45-117); Bilirubin,Total 0.6 mg/dl (0.2-1); Globulin 2.9 gm/dl (2.5-4.0); Total Protein 7.1 gm/dl (6.4-8.2); Troponin I < 0.015 ng/ml (0-0.045)
[2019-05-10 12:07] LABS: Partial Thromboplastin Ratio 0.9; Partial Thromboplastin Time 25.1 Seconds (21.0-31.0); Prothrombin Time 10.2 Seconds (9.0-12.0)
--- NOTE | 2019-05-10 14:18 | History & Physical Report ---
Date of Service May 10, 2019 Assessment & Plan (1) COPD exacerbation: Hx of similar with high humidity Improved s/p nebs, solumedrol Continue nebs, solumedrol 60mg TID CXR neg, no need for abx Given hx and feels similar to prior COPD exacerbations with VSS, will hold off on CTA as PE seems unlikely Uses O2 HS only at baseline EKG WNL Trop neg CBC, PRP WNL (2) HTN (hypertension): continue home meds (3) HLD (hyperlipidemia): continue home meds (4) Hx of myocardial infarction: continue home meds Hx of stents [place] in 2001 (5) Ischemic cardiomyopathy: continue home meds (6) Anxiety: continue home meds (7) GERD (gastroesophageal reflux disease): continue home meds (8) Hypokalemia: continue home meds (9) Neuropathy: continue gabapentin (10) DVT prophylaxis: SCDs, Heparin for DVT proph History of Present Illness Primary Care Provider: Danna Winston MD 74 y/o F c/o worsening SOB. 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 She states she walked out the door and "the heat hit me". She felt a bit SOB with this, but decided that since she had a/c in her car and was only going down the street, she would continue. She was able to pickling operator her prescriptions, but was having worsening SOB by the time she got home. She took a neb and this did help some, however she had recurrence shortly after. She has home O2 for HS use only, so she put that on and this also helped some. Over the course of that night and the next day, her SOB became worse. She continued to work with her inhalers, nebs, and home O2, however she was getting SOB at rest as well and could not move around much at all. She states that she would have relief as soon as she started her nebs, but within a few minutes after they were finished her SOB would r eturn. She has not been able to eat much because she could not get into her kitchen and prepare food with the SOB. She states that she has had issues with high humidity in the past and this feels the same. Pt denies fever, chest pain, abd pain, n/v/c/d, LE pain or swelling. Pt states that she does feel improved s/p nebs/steroids in the ED. "I couldn't even talk when the paramedics arrive." She does still feel SOB though. Allergies Allergy/AdvReac Type Severity Reaction Status Date / Time diazepam Allergy Unknown WAS TOLD Verified 05/10/19 12:06 NEVER TO TAKE AGAIN FROM [employer]ESSMENT [employer]NALYST Home Medications Home Medications Medication Instructions Recorded Confirmed Type aspirin 325 mg tablet,delayed 325 mg PO QAM tab 04/20/19 05/10/19 History release atorvastatin 40 mg tablet 40 mg PO HS #90 tab 04/20/19 05/10/19 History calcium carbonate 600 mg calcium 600 mg PO BID tab 04/20/19 05/10/19 History (1,500 mg) tablet carvedilol 3.125 mg tablet 3.125 mg PO BID #180 tab 04/20/19 05/10/19 History cholecalciferol (vitamin D3) 1,000 1,000 unit PO BID cap 04/20/19 05/10/19 History unit capsule citalopram 20 mg tablet 20 mg PO HS #90 tab 04/20/19 05/10/19 History fluticasone 500 mcg-salmeterol 50 1 puffs INHALATION BID #3 ea 04/20/19 05/10/19 History mcg/dose blistr powdr for inhalation furosemide 40 mg tablet 40 mg PO QAM #90 tab 04/20/19 05/10/19 History gabapentin 300 mg capsule 300 mg PO HS #90 cap 04/20/19 05/10/19 History ipratropium 20 mcg-albuterol 100 1 puffs INHALATION QID #3 gm 04/20/19 05/10/19 History mcg/actuation mist for inhalation magnesium oxide 500 mg capsule 400 mg PO HS cap 04/20/19 05/10/19 History pantoprazole 40 mg tablet,delayed 40 mg PO HS #90 tab 04/20/19 05/10/19 History release potassium chloride ER 10 mEq 10 meq PO QAM #90 cap 04/20/19 05/10/19 History capsule,extended release trazodone 50 mg tablet 50 mg PO HS #90 tab 04/20/19 05/10/19 History umeclidinium 62.5 mcg/actuation 1 puffs INHALATION HS #3 ea 04/20/19 05/10/19 H istory blister powder for inhalation ibuprofen 200 mg PO Q6H PRN 05/10/19 05/10/19 History meloxicam 15 mg PO HS 05/10/19 05/10/19 History Past Med/Surg History Medical History COPD (chronic obstructive pulmonary disease) (Chronic) HTN (hypertension) (Chronic) HLD (hyperlipidemia) (Chronic) Influenza A (Resolved) Ischemic cardiomyopathy Hx of myocardial infarction Anxiety GERD (gastroesophageal reflux disease) Pneumonia Surgical History No pertinent past surgical history Family History Brother , cirrhosis Alcohol abuse Drug abuse Father , 55 s/p [place] Cardiac disorder Myocardial infarction Unknown Myocardial infarction Brother , [place] Myocardial infarction Brother Myocardial infarction Other No pertinent family history Social History Preferred Language: Guyanese Communication Ability: Effective Visual Impairment: No Limitations Hearing Ability: Normal Feels Safe at Home: Yes Smoking Status: Former smoker Smoking End Date: over 1 year ago Second Hand Exposure: Yes Hx Alcohol Use: No Hx Substance Use: No Review of Systems Review of Systems: Pertinent positives and negatives reviewed in HPI--all others negative Physical Exam Constitutional: WD/WN, vitals as above Eyes: normal visual spicer by confrontation and + anicteric sclerae Neck: normal visual inspection and trachea midline Respiratory: + abnormal respiratory effort (gets mildly SOB with prolonged conversation) and no respiratory distress Auscultation: + wheezes (diffuse, inspiratory and expiratory); no crackles Cardiovascular: Rate/Rhythm: regular rate and regular rhythm Gastrointestinal (Abdomen): Inspection/Auscultation: abdomen not distended Percussion/Palpation: abdomen soft; abdomen nontender Musculoskeletal: Head/Neck/Chest: normocephalic and head atraumatic negative for edema, peripheral pulses intact Skin: no rashes, warm and dry Neurologic: awake; not confused Speech / Cognition: normal speech Psychiatric: A+Ox3, euthymic affect Results & Data Vital Signs (Past 12 Hours) Vital Signs Temp Pulse Pulse Resp BP Pulse Ox 05/10/19 13:09 79 20 135/77 95 05/10/19 12:32 78 13 119/58 L 93 05/10/19 12:00 75 22 124/88 96 05/10/19 11:33 72 21 112/86 94 05/10/19 11:02 76 25 H 133/85 05/10/19 10:58 95 05/10/19 10:50 79 24 97 05/10/19 10:28 36.7 C 78 34 H 178/90 H 94 Diagnostic Findings CXR: neg for acute ECG Rhythm: normal sinus Code Status & VTE Plan Code Status Full code VTE Prophylaxis Plan VTE Prophylaxis will be ordered: Yes PG Care Time/CCT Total # of Minutes Spent Total Time Spent with Patient: Total time spent is greater than 50% in coordination of care (as documented) at patient's floor/unit and/or counseling patient:
[2019-05-10] MEDS ORDERED: IBUPROFEN 200 MG TAB PO PRN (15:49)
[2019-05-10] MEDS ORDERED: ACETAMINOPHEN 325 MG TAB PO PRN (15:49)
[2019-05-10] MEDS ORDERED: MAGNESIUM HYDROXIDE SUSP 30 ML UDC PO PRN (15:49)
[2019-05-10] MEDS ORDERED: ONDANSETRON INJ 2 MG/ML 2 ML VIAL IV PRN (15:49)
[2019-05-10] MEDS: ALBUT/IPRATROP 3MG/0.5MG NEB 3 ML VIAL NEB SCH ×2 (16:27→19:04)
--- NOTE | 2019-05-10 16:34 | Emergency Department Note ---
Entered by Caroline Yoder acting as a scribe for History of Present Illness General Chief complaint: Shortness of Breath/Dyspnea Stated complaint: sob Time Seen by Provider: 05/10/19 10:27 Source: patient Mode of arrival: ambulatory History of Present Illness Onset (ago): day(s) (yesterday) Location: chest Severity: similar to prior episodes Pain Consistency: + other (worsening) Associated symptoms: + cough (The patient complains of cough with thick phlegm production. ), + shortness of breath and + other (The patient denies swelling or pain in her legs. ); no chest pain Treatments prior to arrival: other (The patient received solumedrol and duoneb en route.) The patient is a 74 year old female with a history of COPD, hypertension, hyperlipidemia, ischemic cardiomyopathy, myocardial infarction, anxiety, and GERD who presents to the ED via EMS with complaints of worsening shortness of breath that onset yesterday. She notes that she went to the store yesterday to get her medications and it was very hot outside. The patient states that she did a breathing treatment at home. She reports that she has air conditioning at home. She states that her pain is similar to past episodes of COPD exacerbation from 2 years ago. The patient notes that she wears oxygen at home. The patient complains of cough with thick phlegm production. The patient denies chest pain and swelling or pain in her legs. The patient received Solumedrol and duoneb en route. Home Medications Home Medications Medication Instructions Recorded Confirmed Type aspirin 325 mg tablet,delayed 325 mg PO QAM tab 04/20/19 05/10/19 History release atorvastatin 40 mg tablet 40 mg PO HS #90 tab 04/20/19 05/10/19 History calcium carbonate 600 mg calcium 600 mg PO BID tab 04/20/19 05/10/19 History (1,500 mg) tablet carvedilol 3.125 mg tablet 3.125 mg PO BID #180 tab 04/20/19 05/10/19 History cholecalciferol (vitamin D3) 1,000 1,000 unit PO BID cap 04/20/19 05/10/19 History unit capsule citalopram 20 mg tablet 20 mg PO HS #90 tab 04/20/19 05/10/19 History fluticasone 500 mcg-salmeterol 50 1 puffs INHALATION BID #3 ea 04/20/19 05/10/19 History mcg/dose blistr powdr for inhalation furosemide 40 mg tablet 40 mg PO QAM #90 tab 04/20/19 05/10/19 History gabapentin 300 mg capsule 300 mg PO HS #90 cap 04/20/19 05/10/19 History ipratropium 20 mcg-albuterol 100 1 puffs INHALATION QID #3 gm 04/20/19 05/10/19 History mcg/actuation mist for inhalation magnesium oxide 500 mg capsule 400 mg PO HS cap 04/20/19 05/10/19 History pantoprazole 40 mg tablet,delayed 40 mg PO HS #90 tab 04/20/19 05/10/19 History release potassium chloride ER 10 mEq 10 meq PO QAM #90 cap 04/20/19 05/10/19 History capsule,extended release trazodone 50 mg tablet 50 mg PO HS #90 tab 04/20/19 05/10/19 History umeclidinium 62.5 mcg/actuation 1 puffs INHALATION HS #3 ea 04/20/19 05/10/19 H istory blister powder for inhalation ibuprofen 200 mg PO Q6H PRN 05/10/19 05/10/19 History meloxicam 15 mg PO HS 05/10/19 05/10/19 History prednisone 40 mg PO DAILY #20 tab 05/11/19 Rx Allergies Allergy/AdvReac Type Severity Reaction Status Date / Time diazepam Allergy Unknown WAS TOLD Verified 05/10/19 12:06 NEVER TO TAKE AGAIN FROM [facility] ASSIST[facility] Past Med/Surg History Medical History COPD (chronic obstructive pulmonary disease) (Chronic) HTN (hypertension) (Chronic) HLD (hyperlipidemia) (Chronic) Influenza A (Resolved) Ischemic cardiomyopathy Hx of myocardial infarction Anxiety GERD (gastroesophageal reflux disease) Pneumonia Surgical History No pertinent past surgical history Family History Brother , cirrhosis Alcohol abuse Drug abuse Father , 55 s/p [place] Cardiac disorder Myocardial infarction Unknown Myocardial infarction Brother , [place] Myocardial infarction Brother Myocardial infarction Other No pertinent family history Social History Preferred Language: [place] Communication Ability: Effective Visual Impairment: No Limitations Hearing Ability: Normal Beliefs That Will Affect Care: None Current Living Situation: Alone Feels Safe at Home: Yes Smoking Status: Former smoker Tobacco Type: cigarettes Cigarettes Per Day: 2 Second Hand Exposure: No Hx Alcohol Use: No Hx Substance Use: No Review of Systems See HPI for pertinent positives & negatives. and A total of 10 systems reviewed and were otherwise negative Physical Exam Vital Signs Vital Signs - 24 hr 05/10/19 10:28 05/10/19 10:50 05/10/19 10:58 Temperature 36.7 C Temperature Source Oral Sepsis Recent Fever Within 48 Hours No Sepsis New/Unexplained Change in Mental Status No Sepsis Action Taken by Nursing No Action Required Pulse Rate 78 Pulse Rate [Right Finger] 79 Pulse Rate from SpO2 Sensor Pulse Rhythm Regular Pulse Strength Normal Respiratory Rate 34 H 24 Respiratory Effort / Characteristics Labored Short of Breath Spontaneous Short of Breath SOB on Exertion Respiratory Depth Shallow Respiratory Pattern Tachypnea Blood Pressure 178/90 H Blood Pressure Mean 119 Blood Pressure Position Sitting Pulse Oximetry 94 97 95 Oxygen Delivery Method Room Air Nasal Cannula Nasal Cannula Oxygen Flow Rate 2 2 2 05/10/19 11:02 05/10/19 11:33 05/10/19 12:00 Temperature Temperature Source Sepsis Recent Fever Within 48 Hours Sepsis New/Unexplained Change in Mental Status Sepsis Action Taken by Nursing Pulse Rate 76 72 75 Pulse Rate [Right Finger] Pulse Rate from SpO2 Sensor 75 72 75 Pulse Rhythm Pulse Strength Respiratory Rate 25 H 21 22 Respiratory Effort / Characteristics Respiratory Depth Respiratory Pattern Blood Pressure 133/85 112/86 124/88 Blood Pressure Mean 101 94 100 Blood Pressure Position Pulse Oximetry 94 96 Oxygen Delivery Method Nasal Cannula Nasal Cannula Oxygen Flow Rate 2 2 05/10/19 12:32 05/10/19 13:09 05/10/19 13:31 Temperature Temperature Source Sepsis Recent Fever Within 48 Hours Sepsis New/Unexplained Change in Mental Status Sepsis Action Taken by Nursing Pulse Rate 78 79 83 Pulse Rate [Right Finger] Pulse Rate from SpO2 Sensor 77 80 82 Pulse Rhythm Pulse Strength Respiratory Rate 13 20 20 Respiratory Effort / Characteristics Respiratory Depth Respiratory Pattern Blood Pressure 119/58 L 135/77 135/78 Blood Pressure Mean 78 96 97 Blood Pressure Position Pulse Oximetry 93 95 94 Oxygen Delivery Method Nasal Cannula Nasal Cannula Nasal Cannula Oxygen Flow Rate 2 2 2 05/10/19 14:01 Temperature Temperature Source Sepsis Recent Fever Within 48 Hours Sepsis New/Unexplained Change in Mental Status Sepsis Action Taken by Nursing Pulse Rate 87 Pulse Rate [Right Finger] Pulse Rate from SpO2 Sensor 86 Pulse Rhythm Pulse Strength Respiratory Rate 21 Respiratory Effort / Characteristics Respiratory Depth Respiratory Pattern Blood Pressure 128/97 Blood Pressure Mean 107 Blood Pressure Position Pulse Oximetry 94 Oxygen Delivery Method Nasal Cannula Oxygen Flow Rate 2 GENERAL: Awake and alert very anxious appearing appears to be in significant respiratory distress. EYES: The conjunctivae are clear. The pupils are round and reactive. EARS, NOSE, MOUTH AND THROAT: The nose is without any evidence of any deformity. Mucous membranes are moist.Tongue is midline NECK: The neck is nontender and supple. RESPIRATORY: Pursed lip breathing was noted. There was significant tachypnea and conversation dyspnea noted. Lung sounds were diminished throughout with scatted expiatory wheezing. CARDIOVASCULAR: Regular rate and rhythm noted. There no murmurs rubs or gallops normal S1 normal S2 GASTROINTESTINAL: The abdomen is soft. Bowel sounds are present in all quadrants. Abdomen is nontender. MUSCULOSKELETAL/EXTREMITIES: There is no evidence of gross deformity. Full range of motion is noted in the hips and shoulders. SKIN: There is no obvious evidence of any rash. There are no petechiae, pallor or cyanosis noted. NEUROLOGIC: Patient is awake alert and oriented x3. Course 1029: Past medical records reviewed. The patient was evaluated in room B9. A complete history and physical examination was performed. 1318: [facility]. She will evaluate the patient for further management. Consultations Consultation #1: [id number]: I [facility] the [facility]. She will evaluate the patient for further management. Time: 13:18 Administered Medications Discontinued Medications Acetaminophen (Tylenol) 650 mg PO Q4H PRN PRN Reason: Pain or Fever Stop: 06/09/19 15:48 Last Admin: 05/10/19 21:23 Dose: 650 mg Documented by: [id number] Albuterol (Duoneb) 3 ml NEB NOW STA Stop: 05/10/19 10:35 Last Admin: 05/10/19 10:50 Dose: 3 ml Documented by: [id number] Albuterol (Duoneb) 3 ml NEB NOW STA Stop: 05/10/19 12:54 Last Admin: 05/10/19 12:57 Dose: 3 ml Documented by: [id number] Albuterol (Duoneb) 3 ml NEB Q4R SUZI Stop: 06/09/19 15:59 Last Admin: 05/11/19 11:09 Dose: 3 ml Documented by: [id number] Admin: 05/11/19 07:10 Dose: 3 ml Documented by: [id number] Admin: 05/11/19 03:56 Dose: 3 ml Documented by: [id number] Admin: 05/11/19 00:00 Dose: Not Given Documented by: [id number] Admin: 05/10/19 19:04 Dose: 3 ml Documented by: [id number] Admin: 05/10/19 16:27 Dose: 3 ml Documented by: [id number] Albuterol (Combivent Respimat) 1 puffs INH QID SUZI Stop: 06/09/19 16:59 Last Admin: 05/11/19 08:36 Dose: 1 puffs Documented by: [id number] Admin: 05/10/19 21:08 Dose: 1 puffs Documented by: [id number] Admin: 05/10/19 17:21 Dose: 1 puffs Documented by: [id number] Aspirin (Ecotrin) 325 mg PO QAM SUZI Stop: 06/10/19 08:59 Last Admin: 05/11/19 08:35 Dose: 325 mg Documented by: [id number] Atorvastatin Calcium (Lipitor) 40 mg PO HS SUZI Stop: 06/09/19 20:59 Last Admin: 05/10/19 21:10 Dose: 40 mg Documented by: [id number] Calcium Carbonate (Os-Jr 500) 1,250 mg PO BID SUZI Stop: 06/09/19 20:59 Last Admin: 05/11/19 08:35 Dose: 1,250 mg Documented by: [id number] Admin: 05/10/19 21:10 Dose: 1,250 mg Documented by: [id number] Carvedilol (Coreg) 3.125 mg PO BID SUZI Stop: 06/09/19 20:59 Last Admin: 05/11/19 08:35 Dose: 3.125 mg Documented by: [id number] Admin: 05/10/19 21:08 Dose: 3.125 mg Documented by: [id number] Citalopram Hydrobromide (Celexa) 20 mg PO HS SUZI Stop: 06/09/19 20:59 Last Admin: 05/10/19 21:08 Dose: 20 mg Documented by: [id number] Furosemide (Lasix) 40 mg PO QAM SUZI Stop: 06/10/19 08:59 Last Admin: 05/11/19 08:35 Dose: 40 mg Documented by: [id number] Gabapentin (Neurontin) 300 mg PO HS SUZI Stop: 06/09/19 20:59 Last Admin: 05/10/19 21:10 Dose: 300 mg Documented by: [id number] Heparin Sodium (Porcine) (Heparin Sodium (Porcine)) 5,000 units SQ Q8 SUZI Stop: 06/09/19 21:59 Last Admin: 05/11/19 06:22 Dose: 5,000 units Documented by: [id number] Cosigned by: [id number] Admin: 05/10/19 21:12 Dose: 5,000 units Documented by: [id number] Cosigned by: [id number] Sodium Chloride (Nss) 500 mls @ 999 mls/hr IV .Q31M SUZI Stop: 05/10/19 11:15 Last Infusion: 05/10/19 11:30 Dose: 0 mls/hr Documented by: [id number] Admin: 05/10/19 10:57 Dose: 999 mls/hr Documented by: [id number] Methylprednisolone 60 mg/ (Syringe) 0.96 mls @ 1.5 mls/min IV TID SUZI Stop: 06/09/19 20:59 Last Admin: 05/11/19 08:35 Dose: 1.5 mls/min Documented by: [id number] Admin: 05/10/19 21:10 Dose: 1.5 mls/min Documented by: [id number] Magnesium Oxide (Mag-Ox) 400 mg PO HS SUZI Stop: 06/09/19 20:59 Last Admin: 05/10/19 21:09 Dose: 400 mg Documented by: [id number] Meloxicam (Mobic) 15 mg PO HS SUZI Stop: 06/09/19 20:59 Last Admin: 05/10/19 21:09 Dose: 15 mg Documented by: [id number] Miscellaneous (Order Awaiting Action) 1 ea N/A QS SUZI Stop: 06/10/19 00:00 Last Admin: 05/11/19 02:14 Dose: Not Given Documented by: [id number] Pantoprazole Sodium (Protonix) 40 mg PO HS SUZI Stop: 06/09/19 20:59 Last Admin: 05/10/19 21:11 Dose: 40 mg Documented by: [id number] Potassium Chloride (Klor-Con M10) 10 meq PO QAM SUZI Stop: 06/10/19 08:59 Last Admin: 05/11/19 08:35 Dose: 10 meq Documented by: [id number] Fluticasone/Salmeterol (Advair Diskus 500/50) 1 puffs INH BID SUZI Stop: 06/09/19 20:59 Last Admin: 05/11/19 08:36 Dose: 1 puffs Documented by: [id number] Admin: 05/10/19 21:07 Dose: 1 puffs Documented by: [id number] Trazodone HCl (Desyrel) 50 mg PO HS SUZI Stop: 06/09/19 20:59 Last Admin: 05/10/19 21:09 Dose: 50 mg Documented by: [id number] Vitamin D (Vitamin D3) 1,000 units PO BID SUZI Stop: 06/09/19 20:59 Last Admin: 05/11/19 08:35 Dose: 1,000 units Documented by: [id number] Admin: 05/10/19 21:11 Dose: 1,000 units Documented by: [id number] Medical Decision Making Differential Diagnosis Differential diagnoses Pneumonia, bronchitis, COPD/Asthma exacerbation, pneumothorax, pulmonary embolism, congestive heart failure, acute coronary syndrome as well as other etiologies were entertained. Medical Records Attestation: I reviewed the patient's medical records. Home Medications Current Medication List: was personally reviewed by me Laboratory Data Attestation: I reviewed the patient's lab results. Result diagrams: 05/10/19 11:20 05/10/19 11:20 Lab Results 05/10/19 05/10/19 05/10/19 Range/Units 10:59 11:20 11:20 WBC 8.12 (4.8-10.8) K/uL RBC 5.07 (4.2-5.4) M/uL Hgb 13.8 (12.0-16.0) g/dL Hct 42.4 (37-47) % MCV 83.6 (80-100) fL MCH 27.2 (25-34) pg MCHC 32.5 (32-36) g/dL RDW Std Deviation 43.0 (36.4-46.3) fL RDW Coeff of Adi 14.2 (11.5-14.5) % Plt Count 289 (130-400) K/uL MPV 10.7 H (7.4-10.4) fL Immature Gran % (Auto) 0.1 % Neut % (Auto) 63.5 % Lymph % (Auto) 22.3 % [place] % (Auto) 5.3 % Eos % (Auto) 7.4 % Baso % (Auto) 1.4 % Immature Gran # (Auto) 0.01 (0.00-0.02) K/uL Neut # (Auto) 5.16 (1.4-6.5) K/uL Lymph # (Auto) 1.81 (1.2-3.4) K/uL [place] # (Auto) 0.43 (0.11-0.59) K/uL Eos # (Auto) 0.60 H (0-0.5) K/uL Baso # (Auto) 0.11 (0-0.2) K/uL PT 10.2 (9.0-12.0) Seconds INR 1.0 (0.9-1.1) APTT 25.1 (21.0-31.0) Seconds PTT Ratio 0.9 VBG pH (7.36-7.41) VBG pCO2 (38-50) mmHg VBG pO2 mmHg VBG HCO3 mmol/L VBG O2 Saturation % VBG Base Excess mEq/L Barometric Pressure mm/Hg Sodium (136-145) mmol/L Potassium (3.5-5.1) mmol/L Chloride (98-107) mmol/L Carbon Dioxide (21-32) mmol/L Anion Gap (3-11) BUN (7-18) mg/dl Creatinine (0.6-1.2) mg/dl Est Cr Clr Drug Dosing Est GFR ( Amer) Est GFR (Non-Af Amer) BUN/Creatinine Ratio (10-20) Glucose (70-99) mg/dl Calcium (8.5-10.1) mg/dl Magnesium (1.8-2.4) mg/dl Total Bilirubin (0.2-1) mg/dl AST (15-37) U/L ALT (12-78) U/L Alkaline Phosphatase (45-117) U/L Troponin I (0-0.045) ng/ml Total Protein (6.4-8.2) gm/dl Albumin (3.4-5.0) gm/dl Globulin (2.5-4.0) gm/dl Albumin/Globulin Ratio (0.9-2) Urine Color Yellow Urine Appearance Clear (Clear) Urine pH 6.5 (4.5-7.5) Ur Specific [place] 1.011 (1.000-1.030) Urine Protein Negative (Negative) Urine Glucose (UA) Negative (Negative) Urine Ketones Negative (Negative) Urine Blood Trace H (Negative) Urine Nitrite Negative (Negative) Urine Bilirubin Negative (Negative) Urine Urobilinogen Negative (Negative) Ur Leukocyte Esterase Negative (Negative) Urine WBC (Auto) 0 (0-5) /hpf Urine RBC (Auto) 0-4 (0-4) /hpf U Hyaline Cast (Auto) 0 (0-5) /lpf U Epithel Cells (Auto) 5-10 H (0-5) /lpf Urine Bacteria (Auto) Negative (Negative) 05/10/19 05/10/19 Range/Units 11:20 11:20 WBC (4.8-10.8) K/uL RBC (4.2-5.4) M/uL Hgb (12.0-16.0) g/dL Hct (37-47) % MCV (80-100) fL MCH (25-34) pg MCHC (32-36) g/dL RDW Std Deviation (36.4-46.3) fL RDW Coeff of Adi (11.5-14.5) % Plt Count (130-400) K/uL MPV (7.4-10.4) fL Immature Gran % (Auto) % Neut % (Auto) % Lymph % (Auto) % [place] % (Auto) % Eos % (Auto) % Baso % (Auto) % Immature Gran # (Auto) (0.00-0.02) K/uL Neut # (Auto) (1.4-6.5) K/uL Lymph # (Auto) (1.2-3.4) K/uL [place] # (Auto) (0.11-0.59) K/uL Eos # (Auto) (0-0.5) K/uL Baso # (Auto) (0-0.2) K/uL PT (9.0-12.0) Seconds INR (0.9-1.1) APTT (21.0-31.0) Seconds PTT Ratio VBG pH 7.42 H (7.36-7.41) VBG pCO2 52 H (38-50) mmHg VBG pO2 35 mmHg VBG HCO3 33 mmol/L VBG O2 Saturation < 60.0 % VBG Base Excess 7.0 mEq/L Barometric Pressure 729.8 mm/Hg Sodium 143 (136-145) mmol/L Potassium 3.7 (3.5-5.1) mmol/L Chloride 102 (98-107) mmol/L Carbon Dioxide 34 H (21-32) mmol/L Anion Gap 7.0 (3-11) BUN 15 (7-18) mg/dl Creatinine 0.94 (0.6-1.2) mg/dl Est Cr Clr Drug Dosing Not Reportable Est GFR ( Amer) 69.3 Est GFR (Non-Af Amer) 59.8 BUN/Creatinine Ratio 16.0 (10-20) Glucose 100 H (70-99) mg/dl Calcium 9.5 (8.5-10.1) mg/dl Magnesium 2.3 (1.8-2.4) mg/dl Total Bilirubin 0.6 (0.2-1) mg/dl AST 23 (15-37) U/L ALT 32 (12-78) U/L Alkaline Phosphatase 92 (45-117) U/L Troponin I < 0.015 (0-0.045) ng/ml Total Protein 7.1 (6.4-8.2) gm/dl Albumin 4.2 (3.4-5.0) gm/dl Globulin 2.9 (2.5-4.0) gm/dl Albumin/Globulin Ratio 1.4 (0.9-2) Urine Color Urine Appearance (Clear) Urine pH (4.5-7.5) Ur Specific [place] (1.000-1.030) Urine Protein (Negative) Urine Glucose (UA) (Negative) Urine Ketones (Negative) Urine Blood (Negative) Urine Nitrite (Negative) Urine Bilirubin (Negative) Urine Urobilinogen (Negative) Ur Leukocyte Esterase (Negative) Urine WBC (Auto) (0-5) /hpf Urine RBC (Auto) (0-4) /hpf U Hyaline Cast (Auto) (0-5) /lpf U Epithel Cells (Auto) (0-5) /lpf Urine Bacteria (Auto) (Negative) Imaging Data Radiologist's Impression: Radiology results as stated below per my review and the radiologist's interpretation: XR chest 1V portable CLINICAL HISTORY: Dyspnea dyspnea COMPARISON STUDY: 10/15/2017 FINDINGS: The bones soft tissues and hemidiaphragms are normal. The cardiomediastinal silhouette is normal. The lungs are clear. The pulmonary vasculature is normal. IMPRESSION: Negative chest. The above report was generated using voice recognition software. It may contain grammatical, syntax or spelling errors. Electronically signed by: Johnny Barnes M.D. 05/10/2019 10:47 AM Dictated: 05/10/19 1047 Transcribed: 05/10/19 1047 ECG Data Attestation: I personally reviewed and interpreted this ECG as follows: Indication: SOB/dyspnea Rate (beats per minute): 73 Rhythm: normal sinus Findings: + other (Diffuse T wave flattening) and + Q waves (inferior); no ectopy Comparison ECG Date: from (10/25/17) Change: no significant change Blood Pressure Blood Pressure Findings: Normal blood pressure MDM Narrative The patient is a 74-year-old female who presented to the emergency department fo r evaluation of shortness of breath. The patient has a history of COPD. She quit smoking approximately 1 year ago. Patient was treated with Solu-Medrol prior to arrival by the prehospital personnel. She also used her home nebulizer and received another DuoNeb prior to arrival. The patient was treated with multiple nebulizer treatments in the emergency department. She did feel somewhat improved on reevaluation but she still had significant tachypnea and had significant hypoxia with any exertion. I discussed her laboratory and radiographic studies with her. She was not found of any signs of definite infection or pneumonia. I discussed her case with the on-call [facility] hospitalist group. They have agreed to evaluate the patient in the emergency department for further management and disposition. Impression & Plan COPD exacerbation, Hypoxic, SOB (shortness of breath) Discharge Plan Visit Data *Final* Discharge Date/Time: 05/10/19 15:08 Chief Complaint: Shortness of Breath/Dyspnea Stated Complaint: sob ED Provider: Ammon Nelson Discharge Problem: COPD exacerbation, Hypoxic, SOB (shortness of breath) Patient Disposition: Admitted As Inpatient Discharge Instructions Interventions: ED Discharge Assessment Last Done: 05/10/19 15:08 The scribe's documentation has been prepared under my direction and personally reviewed by me in its entirety. I confirm that the note above accurately reflects all work, treatment, procedures, and medical decision making performed by me.
[2019-05-10] MEDS: IPRATROPIUM BROMIDE/ALBUTEROL respimat INH INH SCH ×2 (17:21→21:08)
[2019-05-10] MEDS ORDERED: GABAPENTIN 300 MG CAP PO SCH (21:00)
[2019-05-10] MEDS ORDERED: CITALOPRAM 20 MG TAB PO SCH (21:00)
[2019-05-10] MEDS ORDERED: MAGNESIUM OXIDE 400 MG TAB PO SCH (21:00)
[2019-05-10] MEDS ORDERED: ATORVASTATIN 40 MG TAB PO SCH (21:00)
[2019-05-10] MEDS ORDERED: TRAZODONE HCL 50 MG TAB PO SCH (21:00)
[2019-05-10] MEDS ORDERED: MELOXICAM 7.5 MG TAB PO SCH (21:00)
[2019-05-10] MEDS ORDERED: PANTOprazole 40 MG TAB PO SCH (21:00)
[2019-05-10] MEDS: FLUTICASONE/SALMETEROL (ADVAIR) 500/50 INH 14 PUFF INH SCH (21:07)
[2019-05-10] MEDS: CARVEDILOL 3.125 MG TAB PO SCH (21:08)
[2019-05-10] MEDS: CALCIUM CARBONATE 1250MG TAB PO SCH (21:10)
[2019-05-10] MEDS: methylPREDNISolone 60 MG in SYRINGE 0 ML IV SCH (21:10)
[2019-05-10] MEDS: CHOLECALCIFEROL 1,000 UNITS TAB PO SCH (21:11)
[2019-05-10] MEDS: HEPARIN SOD 5,000 UNIT/0.5 ML VIAL SQ SCH (21:12)
[2019-05-11] MEDS: ALBUT/IPRATROP 3MG/0.5MG NEB 3 ML VIAL NEB SCH ×4 (03:56→11:09)
[2019-05-11] MEDS: HEPARIN SOD 5,000 UNIT/0.5 ML VIAL SQ SCH (06:22)
[2019-05-11] MEDS: CHOLECALCIFEROL 1,000 UNITS TAB PO SCH (08:35)
[2019-05-11] MEDS: CARVEDILOL 3.125 MG TAB PO SCH (08:35)
[2019-05-11] MEDS: CALCIUM CARBONATE 1250MG TAB PO SCH (08:35)
[2019-05-11] MEDS: methylPREDNISolone 60 MG in SYRINGE 0 ML IV SCH (08:35)
[2019-05-11] MEDS: FLUTICASONE/SALMETEROL (ADVAIR) 500/50 INH 14 PUFF INH SCH (08:36)
[2019-05-11] MEDS: IPRATROPIUM BROMIDE/ALBUTEROL respimat INH INH SCH (08:36)
[2019-05-11] MEDS ORDERED: POTASSIUM CHLORIDE 10 MEQ TABCR PO SCH (09:00)
[2019-05-11] MEDS ORDERED: ASPIRIN 325 MG ECTAB PO SCH (09:00)
[2019-05-11] MEDS ORDERED: FUROSEMIDE 40 MG TAB PO SCH (09:00)
--- NOTE | 2019-05-11 17:59 | Discharge Summary ---
Date of Service May 11, 2019 Admission HPI Per Admitting Provider 74 y/o F c/o worsening SOB. Pt states that she had been doing pretty well until Saturday when she left her home to picker and sorter load and unload her prescriptions. She states she walked out the door and "the heat hit me". She felt a bit SOB with this, but decided that since she had a/c in her car and was only going down the street, she would continue. She was able to picker and sorter load and unload her prescriptions, but was having worsening SOB by the time she got home. She took a neb and this did help some, however she had recurrence shortly after. She has home O2 for HS use only, so she put that on and this also helped some. Over the course of that night and the next day, her SOB became worse. She continued to work with her inhalers, nebs, and home O2, however she was getting SOB at rest as well and could not move around much at all. She states that she would have relief as soon as she started her nebs, but within a few minutes after they were finished her SOB would return. She has not been able to eat much because she could not get into her kitchen and prepare food with the SOB. She states that she has had issues with high humidity in the past and this feels the same. Pt denies fever, chest pain, abd pain, n/v/c/d, LE pain or swelling. Pt states that she does feel improved s/p nebs/steroids in the ED. "I couldn't even talk when the paramedics arrive." She does still feel SOB though. Principal Diagnosis COPD exacerbation Discharge Exam Constitutional WD/WN, vitals as above Eyes normal visual spicer by confrontation and + anicteric sclerae Neck normal visual inspection and trachea midline Respiratory + abnormal respiratory effort (gets mildly SOB with prolonged conversation) and no respiratory distress Auscultation: + wheezes (diffuse, inspiratory and expiratory); no crackles Cardiovascular Rate/Rhythm: regular rate and regular rhythm Gastrointestinal (Abdomen) Inspection/Auscultation: abdomen not distended Percussion/Palpation: abdomen soft; abdomen nontender Musculoskeletal Head/Neck/Chest: normocephalic and head atraumatic Skin no rashes, warm and dry Neurologic awake; not confused Speech / Cognition: normal speech Psychiatric A+Ox3, euthymic affect Discharge Data Allergies Allergy/AdvReac Type Severity Reaction Status Date / Time diazepam Allergy Unknown WAS TOLD Verified 05/10/19 12:06 NEVER TO TAKE AGAIN FROM HISTOLOGY TECHNICIAN Consultations 05/10/19 13:18 ED Decision to Admit Stat Hospital Course (1) COPD exacerbation: Hx of similar with high humidity. Improved s/p nebs, solumedrol. - Discharged on prednisone taper. - No indication of bacterial pneumonia. No abx. - Follow up with Dr. Wilkerson. (2) HTN (hypertension): Continue home meds (3) HLD (hyperlipidemia): continue home meds (4) Hx of myocardial infarction: continue home meds Hx of stents PR in 2001 (5) Ischemic cardiomyopathy: continue home meds (6) Anxiety: continue home meds (7) GERD (gastroesophageal reflux disease): continue home meds (8) Hypokalemia: continue home meds (9) Neuropathy: continue gabapentin (10) DVT prophylaxis: SCDs, Heparin for DVT proph Total Time Total Time Spent Total Time Spent (In Minutes): 35 Discharge Plan Discharge Items Patient Disposition: Home - Self-Care Reason For Visit: COPD EXACERBATION Discharge Diagnosis: COPD exacerbation Discharge Goals: Decrease discomfort and Diagnostic testing Activity: Resume your previous activity Non-emergency contact: Primary Care Provider and Job Developer Call non-emergency contact if: your symptoms worsen and your pain is not controlled Follow-up/Referrals: Danna Winston MD [Primary Care Provider] - 05/20/19 11:00 am (Please, follow up at Dr. Winston's office with her hotel administrative assistant, Che Buck PA-C, on SaturdayMay 20 at 11:00 am. *If you need to change this appointment, call the office at [phone].) Tino Wilkerson DO [Physician] - 05/25/19 12:00 pm (Please, follow up with Dr. Wilkerson on SaturdayMay 25 at 12:00 pm. *If you need to change this appointment, call the office at [phone].) Diet: Regular Addtl Provider Instructions: Ms. Christian, You were admitted to the hospital for a COPD exacerbation. We gave you breathing treatments and steroids and you were feeling better today. We are giving you a steroid taper to get you feeling better until you see Dr. Wilkerson in his office. Please take it starting tomorrow morning as follows: Prednisone 40 mg (4 tabs) for 2 days Prednisone 30 mg (3 tabs) for 2 days Prednisone 20 mg (2 tabs) for 2 days Prednisone 10 mg (1 tab) for 2 days Then stop. Use your oxygen during exertion until you see Dr. Wilkerson in his office. Continue to use it at night as before. Please call Dr. Wilkerson's office if you get more short of breath. Prescriptions: New prednisone 10 mg tablet 40 mg PO DAILY Qty: 20 RF: 0 Continued magnesium oxide 500 mg capsule 400 mg PO HS RF: 0 calcium carbonate 600 mg calcium (1,500 mg) tablet 600 mg PO BID RF: 0 cholecalciferol (vitamin D3) 1,000 unit capsule 1,000 unit PO BID RF: 0 gabapentin 300 mg capsule 300 mg PO HS Qty: 90 RF: 0 pantoprazole 40 mg tablet,delayed release (DR/EC) 40 mg PO HS Qty: 90 RF: 0 trazodone 50 mg tablet 50 mg PO HS Qty: 90 RF: 0 potassium chloride 10 mEq capsule, extended release 10 meq PO QAM Qty: 90 RF: 0 furosemide 40 mg tablet 40 mg PO QAM Qty: 90 RF: 0 atorvastatin 40 mg tablet 40 mg PO HS Qty: 90 RF: 0 carvedilol 3.125 mg tablet 3.125 mg PO BID Qty: 180 RF: 0 aspirin 325 mg tablet,delayed release (DR/EC) 325 mg PO QAM RF: 0 citalopram 20 mg tablet 20 mg PO HS Qty: 90 RF: 0 fluticasone propion-salmeterol 500-50 mcg/dose blister with device 1 puffs inhalation BID Qty: 3 RF: 0 ipratropium-albuterol 20-100 mcg/actuation mist 1 puffs inhalation QID Qty: 3 RF: 0 umeclidinium 62.5 mcg/actuation blister with device 1 puffs inhalation HS Qty: 3 RF: 0 ibuprofen 200 mg Tablet 200 mg PO Q6H PRN (Reason: Pain) RF: 0 meloxicam 15 mg tablet 15 mg PO HS RF: 0 Stand-Alone Forms: [facility] Discharge Orders: Discharge Order (Routine); Ordered 05/11/19 Ordered By: Ander Waldron Admission Data Admit Date/Time: 05/10/19 14:06 Attending Provider: Ander Waldron Admit Provider: Chio Randolph Primary Care Provider: Danna Winston Other Providers: Ander Waldron Service: Telemetry Other Interventions: Discharge Summary Assessment (RN) Last Done: 05/11/19 12:28 DC Date/Time DO NOT enter until pt leaves facility: 05/11/19 13:29
== END 2019-05-11 13:29 | disposition home or self-care (01) | DRG 192 ==
LOC: ED 10:24 → SUATTDRO 14:06 → 2E 14:06